=== PATIENT | male | born 1940 | race Caucasian/White ===

== ENCOUNTER 2016-03-02 07:56 | Inpatient (IN) | payer MEDICARE ==
[2016-03-02] VITALS (10 sets, daily range): BP systolic 109–146; BP diastolic 56–64; PULSE 72–88; RESP 15–20; O2SAT 91–98
[~2016-03-02] VITALS: Ht 182.9 cm; Wt 92.2 kg
[2016-03-02] MEDS ORDERED: Ondansetron 2 mg/mL 2 mL Inj IVPUSH ONE (08:15)
[2016-03-02] MEDS ORDERED: 0.9% Sodium Chloride 250 ML IV ONE (08:15)
--- NOTE | 2016-03-02 08:19 | ED.REPORT ---
HPI-Trauma Minor / Fall Date of Service Mar 02, 2016 ED Provider: Jose M Scott DO The patient is a 75 year old male with history of atrial fibrillation on Plavix , renal failure pre-dialysis, diabetes mellitus, thyroid disease, COPD, and congestive heart failure who was brought to the emergency department by EMS after he had a ground level fall. It is unclear why he fell. He fell backwards hitting his head. When medics arrived the patient was on oxygen and appeared pale. The patient states he is not normally on oxygen. He denies neck pain, back pain, chest pain, abdominal pain. He has noticed a mild cough and congestion. He is currently residing at [facility] for a left ankle wound. Nursing Notes Stated Complaint: GLF Chief Complaint: Head, Face, Neck Trauma Nursing Notes Reviewed: Yes Allergies: Coded Allergies: No Known Allergies (Unverified , 03/02/16) Scheduled Albuterol HFA (Proair HFA) 8.5 Gm Hfa.aer.ad 2 PUFFS INHALATION Q4H Aspirin Chew (Aspirin Chew) 81 Mg Chew 325 MG PO DAILY Atorvastatin (Lipitor) 20 Mg Tablet 20 MG PO DAILY Calcitonin,[place],Synthetic (Calcitonin-[place]) 3.7 Ml [place].pump 3.7 ML NS DAILY Carvedilol (Carvedilol) 6.25 Mg Tablet 6.25 MG PO BID Clopidogrel Bisulfate (Plavix) 75 Mg Tablet 75 MG PO DAILY Ferrous Sulfate (Iron) 325 Mg Capsule.er 325 MG PO DAILY Finasteride (Finasteride) 5 Mg Tablet 5 MG PO DAILY Gabapentin (Gabapentin) 300 Mg Capsule 600 MG PO DAILY Isosorbide MN ER (Isosorbide MN ER) 30 Mg Tab.er.24h 30 MG PO BID L.acidoph & Paracasei,B.lactis (Probiotic) 10 Billion Cell Capsule 1 EACH PO DAILY Levothyroxine (Levothyroxine) 125 Mcg Tablet 125 MCG PO DAILY Multivitamin (Multivitamins) 1 Each Capsule 1 EACH PO DAILY Nicotine 21 mg/24 hr Patch (Nicotine 21 mg/24 hr Patch) 1 Each Patch.dysq 1 PATCH TRANSDERM DAILY Polyethylene Glycol 3350 (Miralax) 17 Gm Powd.pack 17 GM PO DAILY Potassium Chloride ER (Potassium Chloride ER) 20 Meq Tablet.er 40 MEQ PO DAILY TAKE WITH FOOD Prednisolone (Prednisolone) 15 Mg/5 Ml Solution 40 MG PO DAILY Salmeterol Xinafoate (Serevent Diskus) 50 Mcg/Puff Inhaler 1,400 MCG IH BID Tamsulosin (Flomax) 0.4 Mg Capsule 0.4 MG PO DAILY Tiotropium [place] (Spiriva) 18 Mcg Cap.w.dev 18 MCG IH DAILY Torsemide (Torsemide) 20 Mg Tablet 60 MG PO Q2DAY Torsemide (Torsemide) 20 Mg Tablet 80 MG PO DAILY Scheduled PRN Hydrocodone-Acetaminophen 5-325 mg (Hydrocodone-Acetaminophen 5-325 mg) 1 Each Tablet 1 TABLET PO Q4H PRN PRN For Pain Miscellaneous Medications Guaifenesin/Pseudoephedrne HCl (Guaifenesin-Pse ER 600-60 mg) 600 Mg-60 Mg Tab.er.12h 1 EACH PO General Time Seen by MD: 08:05 Chief Complaint Fall, Head injury Hx Obtained From: Patient, EMS Arrived By: Ambulance Onset Occurred: 1 - 4 hours ago Symptom Duration: Since onset Caused by: Fall on ground Context: Occurred at: Home injury Location: Head Quality: Painful Severity: Current: Mild Severity: Maximum: Moderate Recent Healthcare: No recent hospitalization Similar Sx Previous: No Past Medical History Past Medical History History of atrial fibrillation on Plavix, renal failure pre-dialysis, diabetes mellitus, thyroid disease, COPD, and congestive heart failure Family History Noncontributory Smoking History Unknown if Ever Smoker Social History currently living at [facility] Other Social History: Local resident Review of Systems Review of Systems Note: +head pain around wound Ears / Nose / Throat: Reports: Nasal congestion Respiratory: Reports: Non-productive cough Musculoskeletal: Denies: Back pain, Neck pain Complete sys rev & neg: except as marked. Cardiovascular: Denies: Chest pain GI: Denies: Abdominal pain Physical Exam Initial Vital Signs Vital Signs (First) Date Time Temp Pulse Resp B/P Pulse Ox O2 Delivery O2 Flow Rate FiO2 03/02/16 08:13 36.5 79 15 146/64 94 Nasal Cannula 2 Initial VS: Reviewed Neurologic: Alert, Oriented, Nonfocal Psychiatric: Mood/affect normal, Behavior normal, Normal thought content General/Constitutional: Awake, Alert Neck: Atraumatic, Supple, Full range of motion, No swelling, Non-tender, No midline vertebral tend Head / Eyes: Normocephalic, PERRL, EOMI 5x5 cm midline occipital hematoma ENT: Airway patent Mouth: Positive: Mucous membranes dry Wheezing / Retractions: Positive: Wheezing expiratory Rales / Rhonchi: Positive: Rales bilateral bases Cardiovascular: Heart rate NL, Regular rhythm, Heart sounds NL, No murmurs, No rubs, Cap refill not delayed, Peripheral circulation NL Abdomen: Atraumatic, Soft, Non-tender Back: Non-tender, No midline vertebral tend, No paraspinal tenderness There is an area of erythema to the mid thoracic on the right Upper Extremity / MS: Neurologic intact, Vascular intact Superficial skin tear to his right forearm Lower Extremity / Pelvis / MS: Pelvis stable, Pelvis non-tender 2+ lower extremity edema ANKLE/FOOT: 2x3 cm ulceration to the dorsum of his left foot. Dusky looking toes on the right foot. Skin: Color NL Rash / Lesion Notes: Anasarca going up to his lower back Interpretation & Diagnostics Lab Results Interpretation Result Diagram: 03/02/16 0951 03/02/16 0951 Test 03/02/16 09:51 03/02/16 10:11 White Blood Count 6.7th/mm3 (3.8-10.1) Red Blood Count 3.28mil/mm3 (4.40-5.80) Hemoglobin 10.1g/dL (13.8-17.2) Hematocrit 33.0% (41.0-50.0) Mean Corpuscular Volume 100.6fL (81-100) Mean Corpuscular Hemoglobin 30.8pg (27.0-35.0) Mean Corpuscular Hemoglobin Concent 30.6% (32.0-37.0) Red Cell Distribution Width 22.1% (12.3-15.4) Platelet Count 100bil/L (150-400) Neutrophils (%) (Auto) 67.8% (40-74) Lymphocytes (%) (Auto) 13.5% (14-46) Monocytes (%) (Auto) 12.9% (4-12) Eosinophils (%) (Auto) 5.0% (0-5) Basophils (%) (Auto) 0.2% (0-3) Sodium Level 141mEq/L (134-144) Potassium Level 4.8mEq/L (3.5-5.2) Chloride Level 100mEq/L (97-108) Carbon Dioxide Level 28mmol/L (18-29) Blood Urea Nitrogen 63mg/dL (8-27) Creatinine 1.81mg/dL (0.76-1.27) Estimat Glomerular Filtration Rate 39mL/min (>59) Glucose Level 115mg/dL (60-99) Calcium Level 8.3mg/dL (8.5-10.1) Magnesium Level 2.3mg/dL (1.6-2.6) Total Bilirubin 1.0mg/dL (0.0-1.2) Aspartate Amino Transf (AST/SGOT) 26U/L (0-50) Alanine Aminotransferase (ALT/SGPT) 23U/L (0-44) Alkaline Phosphatase 118U/L (25-160) Total Creatine Kinase 57U/L (21-232) Creatine Kinase MB 5.3ng/mL (0.0-10.4) Creatine Kinase MB % % (0.0-5.0) Troponin T 0.142ug/L (0.0-0.011) Pro-B-Type Natriuretic Peptide 7466pg/mL (0-486) Total Protein 6.7g/dL (6.4-8.4) Albumin 2.8g/dL (3.4-5.0) Hold Arora Top Tube Received (Received) ECG Interpretation ECG Interpretation: Atrial fibrillation with a rate of 88 Time: 08:34 Interpreted by: ED physician X-Ray Chest Interpretation Chest Xray Interpretation: IMPRESSION: Abnormal appearing lungs suggesting pneumonia in the right side and overall chronic increased markings. No effusions are appreciated. Interstitial edema is thought to be unlikely. Dictated by: Chucho Purcell M.D. on 03/02/2016 at 9:35 Interpretation / Wet Read by: Interpret - Radiologist CT Head Interpretation IMPRESSION: Acute intracranial abnormality is not seen. Aging changes are seen. Old lacunar infarcts on the right are present. Subcutaneous soft tissue laceration in the occipital region. Dictated by: Chucho Purcell M.D. on 03/02/2016 at 9:34 Study: Head CT no contrast Interpretation / Wet Read by: Interpret - Radiologist Procedures Laceration Management Time: 10:12 Procedure Performed by: ED physician Consent / Setup / Site Prep: Consent from patient, Time-out performed, Hand hygiene observed Location of Wound: Stellate macerated laceration to his occipital scalp Wound Length: 3 cm Digital Block: No Wound Preparation: Normal saline Debridement: None Irrigation: Copious Foreign Body Explore / Removal: Explored for foreign body Undermining / Margins: Flaps aligned Repair Skin: Lizeth # Sutures - Skin: 8 (with hemostasis) Closure Layers: 1 Post-Procedure / Complications: Antibiotic oint applied, Dressing applied, No complications, Condition improved, Tolerated procedure well, Patient stable Re-Eval/Medical Decision Med Decision/Clinical Course Syncope with associated head injury, additionally hypoxia with pneumonia and probable CHF. Patient also has a nonhealing left foot ulcer. Troponin is elevated, CK and CK-MB are low. Discussion with hospitalist is felt that we would not give antiplatelet or anticoagulation until this is further sorted out. Patient is started on broad-spectrum antibiotics: Vancomycin and Zosyn Levaquin, due to living in a healthcare facility. Patient actually given Lasix due to diffuse pitting edema suspect anasarca and CHF exacerbation. Source of Hx: Old records, EMS Re-Evaluation/Progress #1: Time of Eval: 10:00 Re-Evaluation/Progress Note: Discussed imaging results and plan for laceration repair. Re-Evaluation/Progress #2: Time of Eval: 11:02 Re-Evaluation/Progress Note: Rechecked the patient. Discussed plan for admission. All questions were addressed. Consultation : Referral / Consult Name: Ranjit Calderon MD Consulted With: Hospitalist Requested Call at: 11:05 Call Returned at: 11:57 Jackhammer Operator: Will see patient, Agrees with eval, Agrees with plan, Accepts admit Counseled Regarding: Diagnosis, Lab results, Need for admission Discharge & Departure Impression: Primary Impression: Fall Encounter type: initial encounter Qualified Code: W19.XXXA - Unspecified fall, initial encounter Additional Impressions: Scalp laceration Encounter type: initial encounter Qualified Code: S01.01XA - Laceration without foreign body of scalp, initial encounter Pneumonia Pneumonia type: due to unspecified organism Laterality: right Lung location : unspecified part of lung Qualified Code: J18.9 - Pneumonia, unspecified organism Anasarca Disposition: ADMITTED TO HOSPITAL Discharge Condition All VS Reviewed: Yes Condition: Stable Scribe Attestation Portions of this note were transcribed by Isa Vieira. I, Dr. Scott personally performed the history, physical exam and medical decision-making; I reviewed and confirmed the accuracy of the information in the transcribed note. Signed by: Anita Ba, 03/02/2016 and Juan. Jose M Scott DO Mar 02, 2016 08:19 Isa Vieira Mar 02, 2016 08:27
[2016-03-02] MEDS ORDERED: Vancomycin Dose per Pharmacist XX ONE (08:30)
--- NOTE | 2016-03-02 09:36 | DRSVH ---
PROCEDURE: CT BRAIN WITHOUT CONTRAST ([id number]) INDICATIONS: head injury occipital hematoma TECHNIQUE: Noncontrast 4.5 mm thick angled axial sections acquired from the foramen magnum to the vertex, with c oronal reformats. COMPARISON: None. FINDINGS: Image quality: Excellent. CSF spaces: Basal cisterns are patent. No extra-axial fluid collections. The ventricles are symmet vamshi in size and shape. Brain: No intracranial bleeds or masses. There is cerebral volume loss for age, with resultant vent ricular and sulcal prominence. There are old lacunar infarcts in the right superior basal ganglia and the head of the caudate on the right. There are periventricular and deep white matter chronic small vessel ischemic changes. There is intracranial internal carotid artery atherosclerosis. Skull and face: Calvarium and visualized facial bones appear intact, without suspicious lesions. Th ere is a posterior occipital scalp laceration with overlying bandage. Sinuses: Visualized sinuses and mastoids are clear. IMPRESSION: Acute intracranial abnormality is not seen. Aging changes are seen. Old lacunar infarcts on the right are present. Subcutaneous soft tissue laceration in the occipital region. Dictated by: Chucho Purcell M.D. on 03/02/2016 at 9:34 Approved by: Chucho Purcell M.D. on 03/02/2016 at 9:34
--- NOTE | 2016-03-02 09:37 | DRSVH ---
PROCEDURE: X-RAY CHEST ONE VIEW, PORTABLE ([id number]) INDICATIONS: hypoxia TECHNIQUE: One view of the chest was acquired. COMPARISON: None. FINDINGS: Surgical changes and devices: property assessment monitor leads are present over the chest. Sternotomy wires are present. Lungs and pleura: There are increased markings diffusely present probably chronic. In addition abnorm al prominent markings in the right lung suggesting superimposed right-sided pneumonia. Mediastinum: Mediastinal contours appear normal. Heart size is normal. Bones and chest wall: No suspicious bony lesions. Overlying soft tissues appear unremarkable. IMPRESSION: Abnormal appearing lungs suggesting pneumonia in the right side and overall chronic incre ased markings. No effusions are appreciated. Interstitial edema is thought to be unlikely. Dictated by: Chucho Purcell M.D. on 03/02/2016 at 9:35 Approved by: Chucho Purcell M.D. on 03/02/2016 at 9:35
[2016-03-02 10:16] LABS: BASOPHILS % (AUTO) 0.2 % (0-3); MONOCYTES % (AUTO) 12.9 % (4-12); Mean Corpuscular Hemoglobin 30.8 pg (27.0-35.0); Mean Corpuscular Volume 100.6 fL (81-100); NEUTROPHILS % (AUTO) 67.8 % (40-74); Platelet Count 100 bil/L (150-400)
[2016-03-02] MEDS ORDERED: CALC3.8S NS (10:25)
[2016-03-02] MEDS ORDERED: SALM50DI IH (10:25)
[2016-03-02] MEDS ORDERED: NICO1PAT16 TRANSDERM (10:25)
[2016-03-02] MEDS ORDERED: ISOS30TA4 PO (10:25)
[2016-03-02] MEDS ORDERED: GABA-502 PO (10:25)
[2016-03-02] MEDS ORDERED: POTA-62 PO (10:25)
[2016-03-02] MEDS ORDERED: TAMS0.4C98 PO (10:25)
[2016-03-02] MEDS ORDERED: L.AC1CAP6 PO (10:25)
[2016-03-02] MEDS ORDERED: PRED15SO PO (10:25)
[2016-03-02] MEDS ORDERED: FINA5TAB9 PO (10:25)
[2016-03-02] MEDS ORDERED: FERR325C PO (10:25)
[2016-03-02] MEDS ORDERED: CARV6.252 PO (10:25)
[2016-03-02] MEDS ORDERED: LEVO125T6 PO (10:25)
[2016-03-02] MEDS ORDERED: MULT1CAP33 PO (10:25)
[2016-03-02] MEDS ORDERED: [UNRECOGNIZED DRUG - CODE] PO (10:25)
[2016-03-02] MEDS ORDERED: CLOP75TA3 PO (10:25)
[2016-03-02] MEDS ORDERED: HYDR-4003 PO (10:25)
[2016-03-02] MEDS ORDERED: ATOR20TA PO (10:25)
[2016-03-02] MEDS ORDERED: ALBU8.5H2 INHALATION (10:25)
[2016-03-02] MEDS ORDERED: TIOT18CA3 IH (10:25)
[2016-03-02] MEDS ORDERED: ASPI81TA3 PO (10:25)
[2016-03-02] MEDS ORDERED: POLY17PO6 PO (10:25)
[2016-03-02] MEDS ORDERED: TORS20TA3 PO (10:25)
[2016-03-02] MEDS ORDERED: levoFLOXacin Inj 750 MG in IV Premix 1 EACH IV ONE (10:50)
[2016-03-02] MEDS ORDERED: Piperacillin-Tazo 3.375 Gm Inj 3.375 GM in Dextrose 5% Minibag Plus 50 ML IV ONE (10:50)
[2016-03-02 10:58] LABS: Creatine Kinase 57 U/L (21-232); Magnesium 2.3 mg/dL (1.6-2.6)
[2016-03-02 11:03] LABS: TROPONIN T 0.142 ug/L (0.0-0.011)
[2016-03-02] MEDS ORDERED: Furosemide 10 mg/mL 10 mL Inj IVPUSH ONE (11:10)
[2016-03-02] MEDS ORDERED: Alum-Mag Hydrox-Simeth 30 mL Suspension PO PRN (12:25)
[2016-03-02] MEDS ORDERED: Ondansetron 2 mg/mL 2 mL Inj IVPUSH PRN (12:25)
[2016-03-02] MEDS ORDERED: _HYDROcodone/APAP 5-325 mg Tablet PO PRN (13:40)
[2016-03-02] MEDS ORDERED: Albuterol 2.5 mg/3 mL Inhalation Solution NEB PRN (13:55)
[2016-03-02] MEDS ORDERED: ASPI325T32 PO (14:35)
[2016-03-02] MEDS ORDERED: ACET325T51 PO (14:35)
[2016-03-02] MEDS ORDERED: GUAI600T86 PO (14:35)
[2016-03-02] MEDS ORDERED: MULT-1018 PO (14:37)
--- NOTE | 2016-03-02 15:54 | NUR ---
ADMIT Admitted a 75/M into room 3010 following report from Dinorah Jacobsen APPLICATIONS INSTRUCTOR at 1345 this afternoon. Pt unable to ind transfer from stretcher to bed, 3 person max assist to transfer. Pt A&O, states that he has chronic lower back pain and "my legs are very tender." Head wound wrapped with gauze, bleeding continues. BLE are reddened with +3 edema. Noted R toes are discolored, L foot dorsal surface has an ulcer with adaptic over. Pt states his LE's "have been like that for year" and "they need to be kept on pillows all the time." Pt has mult skin issues - see skin assessment in patient care flow sheet. Pt on 2L via NC. He is on a P500 bed. Vero Kendall at bedside and communicated to this RN that [place] pre[place] as family all lives in [facility]. This information was given to SW. Resp panel pending. Pt has a fistula on L arm, BP's on RUE only. Admit RN completed med rec. Pt introduced to staff and call light and bed controls. Currently pt resting, bed in lowest, locked position and call light in reach.
[2016-03-02] MEDS: Albuterol-Ipratropium 3 mL Inhalation Solution NEB SCH ×2 (16:13→20:02)
[2016-03-02] MEDS ORDERED: Furosemide 10 mg/mL 2 mL Inj IVPUSH ONE (17:00)
[2016-03-02] MEDS ORDERED: levoFLOXacin Dose Per Pharmacist XX ONE (17:15)
--- NOTE | 2016-03-02 17:20 | PCM.HPMED ---
Subjective Date of Service Mar 02, 2016 Primary Provider: Admitting Physician: Ranjit Calderon MD Primary Care Physician: Gabriel Chandra DO Attending Physician: Ranjit Calderon MD Admit Status: From the Emergency Department, Admit to Blue Team Chief Complaint: Head laceration secondary to GLF in SNF History of Present Illness: Mr. Guillermo Ramey is a pleasant 75 year old gentleman with reported history of COPD, combined systolic and diastolic congestive heart failure, atrial fibrillation, HTN, CKDIV, and recent infection resulting in pneumonia, that presented to [facility] via EMS from [facility] after he experienced a syncopal event that resulted in a head laceration. He was admitted for evaluation and treatment of GLF, in addition to acute respiratory failure likely secondary to suspected acute exacerbation of COPD, acute exacerbation CHF , and possible ongoing PNA. Mr. Ramey is a current resident of [facility], and states that he cannot recall any inciting factors for his fall, and does not recall the events leading to it. He recalls reaching out, and waking up what he believed to be just a few moments later. He fell backward, striking the posterior aspect of his head onto the floor. Daughter is present at bedside. He states that he was recently admitted at [facility] in [place] for infection, and that is how he ended up at [facility], for rehabilitation. He believes it was from his foot wound, as this is the first he has heard of pneumonia. He was last seen 02/[address] Chandra at [facility]. He states other than the fall, he has been feeling well. Admits to poor outpatient compliance with follow up. Admits to chills, shortness of breath, increased cough with intermittent production Denies nausea, vomiting, fevers, severe PAN, acute vision changes In the ED, T36.5, P79, BP 146/64, 94% NC2L; WBC 6.7, Hb 10.1, Hct 33.0; Troponin 0.142, Cr 1.81; Given Lasix 60mg IV x1, vancomycin, zosyn, levaquin. 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 Patient was transferred to [facility] in stable condition. Review of Systems: Complete ROS obtained; pertinent positives and negatives as noted in HPI Allergies Coded Allergies: No Known Allergies (Unverified , 03/02/16) [facility]16 Guillermo Ramey [id number] 1940 02/12/2016 11:00 AM 02/28 Start Date Medication Directions aspirin 325 mg tablet take 1 tablet by oral route every day atorvastatin 20 mg tablet take 1 tablet by oral route every day calcitonin (salmon) 200 unit/actuation nasal spray use as directed clopidogrel 75 mg tablet take 1 tablet by oral route every day ferrous sulfate 325 mg (65 mg iron) tablet take 1 tablet by oral route every day finasteride 5 mg tablet take 1 tablet by oral route every day gabapentin 300 mg capsule take 2 capsule by oral route every bedtime isosorbide mononitrate ER 30 mg tablet,extended release 24 hr take 1 tablet by oral route 2 times every day in the morning levothyroxine 125 mcg tablet take 1 tablet by oral route every day nicotine 21 mg/24 hr daily transdermal patch apply 1 patch by transdermal route every day and remove at bedtime [place] 5 mg-325 mg tablet take 1 tablet by oral route every 4 hours as needed polyethylene glycol 3350 17 gram oral powder packet take 1 packet by oral route every day mixed with 8 oz. water, juice, soda, coffee or tea potassium chloride ER 20 mEq tablet,extended release take 2 tablet by oral route every day with food prednisolone 15 mg/5 mL oral solution take 40 mg daily Serevent Diskus 50 mcg/dose powder for inhalation inhale 1 puff by inhalation route 2 times every day in the morning and evening approximately 12 hours apart Spiriva with HandiHaler 18 mcg and inhalation capsules inhale 1 capsule by inhalation route every day using 2 inhalations via handihaler tamsulosin 0.4 mg capsule take 1 capsule by oral route every day 1/2 hour following the same meal each day torsemide 20 mg tablet take 60 mg qOD alternating with 80 mg qOD PMH CHF, systolic and diastolic Ischemic cardiomyopathy COPD Atrial fibrillation CKDIII Pre-diabetes mellitus Hypothyroidism Bladder cancer s/p TURP Basal cell CA Chronic back pain Chronic cor pulmonale Depression GERD CVA Hyperlipidemia Shingles PVD Surgical History BCG instillations Left AV fistula CABG x2 vessel Cardioversion for AF Hemilaminotomy L5-S1 Left common femoral endarterectomy Microdiscectomy L5-S1 Balloon angioplasty, + stent x2 Left external iliac stent R pulmonary nodule thoracotomy Family History Brother: CAD Father: CAD s/p ND Mother: DM2, breast CA Social History Occupation: Unemployed Hx Alcohol Use: Yes (Last drink > 1 year) Hx Substance Use: No Hx Tobacco Use: Yes ('entire life') Smoking Status: Current Every Day Smoker, Light Tobacco Smoker Living Arrangement: Fdc Facility ([facility]) Exam Vital Signs Vital Sign - Last Date Time Temp Pulse Resp B/P Pulse Ox O2 Delivery O2 Flow Rate FiO2 03/02/16 12:07 84 18 114/61 94 Nasal Cannula 2 03/02/16 08:13 36.5 Exam General: AAOx3; pleasant, cooperative. No acute distress HENT: Approx 6cm laceration noted over parieto-occiput with tawana and signs of bleeding; sclera anicteric, mucus membranes moist Neck: Soft, trachea midline Cardiac: Irregularly regular rate; no murmurs appreciated Respiratory: Bilateral coarse sounds R > L, extending from bases to midfield; + wheeze bilateral mid-upper don Abdomen: Soft, nontender, nondistended Extremities: Left UE fistula placed; BLLE moderate pitting edema extending from dorsum to thigh/abdomen; BLLE erythematous with multiple ulcerations; largest ulceration noted over left dorsum approx 3cm in diameter, without active bleeding or discharge, appears nonhealing; BLLE digits appear poorly perfused Pulses: Unable to palpate BLLE dorsal pedis and post tibialis secondary to edema Neuro: CNII-XII grossly intact; speech normal; facial expressions symmetric Psych: Appropriate mood, affect, and responses to questioning; good insight and judgment; patient is aware his condition is dire Lab and Diagnostics Result Diagram: 03/02/1695003/02/16950 Assessment & Plan Mr. Guillermo Ramey is a pleasant 75 year old gentleman with reported history of COPD, congestive heart failure, atrial fibrillation, and recent infection resulting in pneumonia, that presented to [facility] via EMS from [facility] after he experienced a syncopal event that resulted in a head laceration. - Hospital day one Acute respiratory failure, present on admission. Ongoing - In ED: Requiring supplemental O2 - Possible etiologies: Acute exacerbation COPD, undiagnosed chronic respiratory failure, acute exacerbation CHF, ongoing PNA, other infxn - 88-92% O2 - Consider arrange home O2 order at [place] if sats remain low Pneumonia, suspected, acute, present on admission. Under investigation - CXR 03/02: Abnormal appearing lungs suggesting pneumonia in the right side and overall chronic increased markings. No effusions are appreciated. Interstitial edema is thought to be unlikely - Records request: [facility] - Resp PCR - Blood cultures - PCT - Legionella Ur - S. pneu Ur - MRSA screen - Abx: Zosyn, Levaquin, vancomycin; DC pending repeat PCT values Acute exacerbation COPD, present on admission. Ongoing - Duonebs QIDWA - Accunebs q2h prn - Budesonide BID - On chronic steroids: Med rec 40mg prednisone daily - Solu-Medrol 60mg IV q8 x3 doses, then taper with po: start date 03/02 - May need arrange home O2 order pending improvement Acute exacerbation CHF, present on admission. Ongoing - No known cardiac history - Home diuretics: Torsemide 80mg every other day alternating with 60mg - Echo - Lasix 20mg IV q6h + metolazone 5mg daily x3 days - Re-eval fluid status daily; convert to po when stabilized Head laceration secondary to GLF, acute, present on admission. Ongoing - Brain CT 03/02: Acute intracranial abnormality is not seen. Aging changes are seen. Old lacunar infarcts on the right are present. Subcutaneous soft tissue laceration in the occipital region. - Stapled in ED - HOLDING anticoagulants/antiplatelets at this time; wound continuing to bleed - Wound care eval Ground level fall, acute, unknown chronicity. Under investigation - Etiologies considered: Dehydration, atrial fibrillation, thyroid abnormalities , gait instability, medications, deconditioning, TIA - TSH, fT4; echo - PT eval Left foot ulceration, chronicity unknown, present on admission. Ongoing - Podiatry consultation; appreciate time and concerns - Wound care consult Anasarca, chronicity unknown, present on admission. Ongoing - Likely secondary to worsening CHF - Echo, lasix as above Elevated troponin undetermined significance, chronicity unknown - On admit: 0.142 - May be secondary to CKD - Trend Possible acute kidney injury on CKDIII, present on admission. Under investigation - On admit: Cr 1.81, eGFR 39 - Records request to determine baseline Cr - Patient reports he has left sided fistula already placed in preparation for dialysis, if needed - Fistula has never been utilized - Consider renal consultation if Cr worsens in am Bladder cancer, chronic. Presumed stable - Reports he receives BCG instillations Hypothyroidism, chronic. Presumed stable - TSH, fT4 as above - Continued levothyroxine at reported dose Family concerns for discharge - NEUROSURGICAL PHYSICIAN ASSISTANT consult - Family states that he has been unable to be placed in SNFs [place] due to son's life choices - Dtr present- would like pt to be transferred out to [facility] to SNF closer to [place] - Dtr expressed discomfort in pt returning to [facility] - PRN: Fever/antiemetic/bowel/pain - DIET: Heart healthy/CC - DVT: Contraindicated at this time secondary to head lac bleeding, BLLE edema - GI: None - CODE: DNR/DNI Patient Status: Due to severity of presenting symptoms, risk of adverse events, and likely course of care, anticipated LOS > 2 midnights; patient INPT status. Anticipated needs at this time include working with NEUROSURGICAL PHYSICIAN ASSISTANT and family for placement concerns, PT eval to assess stability, wound care to eval feet. Pain Evaluation: Adequate Pain Control VTE Prophylaxis Indicated: Contraindicated Resuscitation Status: DNR/DNI:Do Not Resuscitate/Intubate Attending Statement The patient was seen and examined together with Dr. Loving on 03/03/2016 and I agree with the history, exam and plan as outlined in the note above. Susan Loving DO Mar 02, 2016 13:24 Ranjit Calderon MD Mar 03, 2016 09:14
[2016-03-02] MEDS: MethylprednisoLONE Sodium Succinate 40 mg/mL Inj IVPUSH SCH (17:38)
[2016-03-02 18:52] LABS: APPEARANCE,URINE CLEAR (CLEAR,HAZY); COLOR,URINE YELLOW (YELLOW); PH,URINE 5.5 (5.0-8.0)
[2016-03-02 18:53] LABS: OCCULT BLOOD,URINE NEGATIVE (NEGATIVE); UROBILINOGEN,URINE NORMAL (NORMAL)
[2016-03-02] MEDS: Isosorbide Mononitrate 30 mg ER24 Tablet PO SCH (19:55)
[2016-03-02] MEDS: Budesonide 0.5 mg/2 mL Inhalation Solution NEB SCH (20:03)
[2016-03-02] MEDS: Furosemide 10 mg/mL 2 mL Inj IVPUSH SCH (20:30)
[2016-03-03] VITALS (11 sets, daily range): BP systolic 110–136; BP diastolic 62–70; PULSE 75–93; RESP 18–20; O2SAT 92–96
[2016-03-03] MEDS: MethylprednisoLONE Sodium Succinate 40 mg/mL Inj IVPUSH SCH ×2 (01:16→08:47)
[2016-03-03] MEDS: Piperacillin-Tazo 3.375 Gm Inj 3.375 GM in Dextrose 5% Minibag Plus 50 ML IV SCH ×3 (01:25→15:43)
[2016-03-03] MEDS ORDERED: 0.9% Sodium Chloride 250 ML ONE (01:27)
[2016-03-03] MEDS: Furosemide 10 mg/mL 2 mL Inj IVPUSH SCH ×3 (02:35→15:43)
--- NOTE | 2016-03-03 03:09 | NUR ---
Respiratory / cardiac Exertional SOB with moist non-productive cough. Remains on 2-3Lt's 02 overnight. RT in for NEBs. Zosyn infusing. Elevated traponins Dr. Monreal made aware. Tele: roznic A-fib HR 86. Denies chest pain.
[2016-03-03 06:25] LABS: BASOPHILS % (AUTO) 0 % (0-3); EOSINOPHILS % (AUTO) 0 % (0-5); MONOCYTES % (AUTO) 3.9 % (4-12); Mean Corpuscular Hemoglobin 30.7 pg (27.0-35.0); Mean Corpuscular Volume 99.7 fL (81-100); NEUTROPHILS % (AUTO) 86.7 % (40-74); Platelet Count 96 bil/L (150-400)
--- NOTE | 2016-03-03 06:45 | NUR ---
urinary retention bladder scan with 999ml - unable to void. Dr Monreal notified and order received to I/O cath Q8Hr prn for postvoid residual greater than 300ml. 0650 UOP per cath 1000ml.
[2016-03-03 07:11] LABS: Magnesium 2.3 mg/dL (1.6-2.6); Phosphorus 4.6 mg/dL (2.5-4.9)
[2016-03-03] MEDS: Albuterol-Ipratropium 3 mL Inhalation Solution NEB SCH ×4 (07:29→21:11)
[2016-03-03] MEDS: Budesonide 0.5 mg/2 mL Inhalation Solution NEB SCH ×2 (07:42→21:11)
[2016-03-03] MEDS ORDERED: Calcitonin 200 IU 3.7 mL Nasal Spray NASAL SCH (08:30)
[2016-03-03] MEDS: Polyethylene Glycol (PEG) 17 Gm Powder PO SCH (08:30)
[2016-03-03] MEDS: Isosorbide Mononitrate 30 mg ER24 Tablet PO SCH ×2 (08:48→20:42)
--- NOTE | 2016-03-03 10:09 | PCM.PNMED ---
Subjective Date of Service Mar 03, 2016 Subjective Guillermo continues to be coughing this morning and has had bloody sputum. He denies any pain or dizziness. Exam Vital Signs Vital Sign - Last Date Time Temp Pulse Resp B/P Pulse Ox O2 Delivery O2 Flow Rate FiO2 03/03/16 07:30 93 18 95 Nasal Cannula 3.00 03/03/16 06:10 36.8 110/66 Intake and Output 03/02/16 03/02/16 03/03/16 Cumulative From/Thru 15:00 23:00 07:00 03/02/16 08:13 - 03/03/16 06:00 Intake Total 250 ml 379 ml 75 ml 704 ml Output Total 775 ml 775 ml Balance 250 ml -396 ml 75 ml -71 ml Intake Oral 200 ml 200 ml IV Total 250 ml 179 ml 75 ml 504 ml Output Urine Total 775 ml 775 ml Exam General: Chronically ill appearing male resting in bed, kyphotic. Supplemental oxygen via nasal cannula at 3L/h. Oriented to person and place, but states that Marv is president and the year is 2019. HEENT: Large mesh dressing in place over the occiput to the frontal region. PERRLA Cardiac: Irregularly irregular without murmur, rub, or gallop Respiratory: Good inspiratory effort. Diffuse wheezing and rales. No gasping or tripoding. Bloody sputum visualized. Extremities: 1+ edema distal to the knee. The right 4th distal toe is black, right plantar halux is black. Feet are cold. There is erythema and scaling present on both lower legs consistent with chronic stasis. Left dorsal dressing is clean, dry, and intact. Lab and Diagnostics Result Diagram: 03/03/16 0603/03/16 06 Assessment & Plan Guillermo is a 75yo male with reported history of COPD, congestive heart failure, atrial fibrillation, and recent hospitalization at [facility] for unknown reason, who presented to [facility] via EMS from [facility] after he experienced a GLF with resultant posterior scalp laceration. Hospital day # 2 Acute respiratory failure, present on admission. Ongoing - Potentially acute on chronic given his hx of COPD. - Suspect this is due to pneumonia, possibly contributed by CHF - Requiring supplemental oxygen - Supplemental oxygen as needed to maintain 88-92% O2 saturation - Consider arrange home O2 Pneumonia, unclear if this is hospital acquired as records from [facility] have not yet been received. Will treat for possible resistance - CXR 03/02: Abnormal appearing lungs suggesting pneumonia in the right side and overall chronic increased markings. No effusions are appreciated. Interstitial edema is thought to be unlikely - Records requested from his recent hospitalization at [facility] - Resp PCR negative - Blood cultures pending - Legionella Ur not yet resulted - S. pneu Ur - Abx: Zosyn, Levaquin, vancomycin Acute exacerbation COPD, present on admission. Ongoing - In the setting of chronic steroid use - Duonebs QIDWA - Accunebs q2h prn - Budesonide BID - Continue prednisone 40mg daily - Tapering Solu-Medrol, received 60mg IV q8h x3 doses - May need arrange home O2 order pending improvement Acute exacerbation CHF, systolic and diastolic dysfunction history, present on admission. Ongoing - Continues to have pedal edema - Home diuretics: Torsemide 80mg every other day alternating with 60mg daily on alternate days - Echocardiogram today - Lasix 20mg IV q6h + metolazone 5mg daily x3 days - Re-eval fluid status daily; convert to po when stabilized Head laceration secondary to GLF, acute, present on admission. Ongoing - Brain CT 03/02: Acute intracranial abnormality is not seen. Aging changes are seen. Old lacunar infarcts on the right are present. Subcutaneous soft tissue laceration in the occipital region. - Stapled in Emergency department - HOLDING anticoagulants/antiplatelets at this time due to bleeding of his scalp laceration overnight - Wound care evaluation Ground level fall, acute, unclear if this is a recurrent issue for him or if this was an unwitnessed syncopal episode - Etiology not entirely clear, this patient has several comorbidities that may be the cause, possible pulmonary embolism given the hemoptysis and acute respiratory failure - PT evaluation Chronic left foot ulceration with myonecrosis, present on admission. Ongoing - Podiatry consultation; appreciate time and concerns - Wound care consult Elevated troponin undetermined significance, chronicity unknown - On admit: 0.142 - May be secondary to CKD - Trend Possible acute kidney injury on CKDIII, present on admission. Under investigation - On admit: Cr 1.81, eGFR 39 - Records request to determine baseline Cr - Patient reports he has left sided fistula already placed in preparation for dialysis, if needed - Fistula has never been utilized - Consider renal consultation if Cr worsens in am Bladder cancer, chronic. Presumed stable - Reports he receives BCG instillations Hypothyroidism, chronic. Presumed stable - TSH, fT4 as above - Continued levothyroxine at reported dose Family concerns for discharge - LUBE WORKER consult as the patient's daughter does not want him to return to [facility], wants him closer to [place] - PRN: Fever/antiemetic/bowel/pain - DIET: Heart healthy/CC - GI: None - CODE: DNR/DNI VTE Prophylaxis: Other (Held due to bleeding scalp wound) Resuscitation Status: DNR/DNI:Do Not Resuscitate/Intubate Attending Statement The patient was seen and examined together with Dr. Mathias on 03/03/2016 and I agree with the history, exam and plan as outlined in the note above. Adriane Mathias DO Mar 03, 2016 09:52 Ranjit Calderon MD Mar 04, 2016 09:58
[2016-03-03] MEDS: Vancomycin Dose per Pharmacist XX SCH (11:30)
[2016-03-03] MEDS: Vancomycin 1 Gm/200 mL D5W Premix IV SCH (12:01)
--- NOTE | 2016-03-03 12:34 | PCM.CONPHA ---
Subjective Head laceration secondary to GLF in SNF Reason for Pharmacy Consult: Vancomycin Dosing Assessment/Plan Assessment/Plan Pharmacy Kinetic Dosing Vancomycin Indication: Pneumonia Vanc goal trough: 15-20 mcg/mL Pt wt: 87.1 kg Other ABX: Zosyn Cultures: Blood = NGTD x 24 hrs SCr: 1.84 mg/dL (stable) Assessment/Plan: - Loading dose of vancomycin 1,250 mg given in ED. Random level this AM = 10.1 -Will continue vancomycin 1,000 mg Q24h with trough scheduled for 03/05 @1030 ( if therapy is continued). Pharmacy appreciates consult and will continue to monitor. Thanks, Osmel Kim, PharmD Osmel Kim Mar 03, 2016 12:34
--- NOTE | 2016-03-03 14:47 | NUR ---
Social Work-initial assessment: Data:See initial assessment. pt is a 75 y/o male who was admitted on 03/02/16 for GLF per H&P. Pt's insurance is [employer] and PCP is Gabriel Chandra DO. EMR Reviewed. Pt's readmission score is 4-high risk. VILMA met with pt and daughter Faiza [phone] to discuss discharge planning, SW role explained. Pt has been residing at [facility] for rehab. Pt uses a fww at baseline and does not drive. Pt has HH history with [facility]. SW discussed DPOA/advanced directive with daughter, who confirms they have completed this and brought the paperwork in. Daughter states that she is currently caring for pt's who has some dementia herself. Daughter states that the 's home has been foreclosed and she has 60 days to move out which daughter is assisting with. Daughter would like pt to be closer to home so she can manage both pt and . Daughter would like pt to go to [facility], if not this facility, then any other facility in [facility]. SW explained that pt's insurance would have to contract with these facilities and they would have to be willing to accept pt. Daughter states pt has applied for [facility] also. SW placed a call to [facility] and left message. SW requested UR specialist to send referrals to other [facility] SNFs. PT evaluation is pending. SW will continue to follow. Assessment:Pt who would benefit from SNF. Plan:Return to [facility] vs [facility] SNF. PT evaluation is pending. VILMA will continue to follow. SANCHEZ Casillas Addendum: 03/03/16 at 1511 by LINDA TIERNEY Amended: Links added.
--- NOTE | 2016-03-03 15:35 | NUR ---
03/03/16 Wound Care [facility] Patient seen for wound evaluation to left foot and posterior head. Patient noted with ischemic ulcer to dorsum of left foot. Patient states has been present for at least 2 years with little overall progress made. Has seen wound clinic in [place], as well as wound care at various hospitals, home care and chcf facilities. Assessment reveals patient also with ischemic areas to right 4th plantar toe, right distal great toe and right dorsum of foot. Patient has almost healed arterial ulcer to left lateral ankle. Right 4th plantar toe wound measures 1.7cmW x 1.4cmL with multiple black ischemic areas but no open area. Right great distal toe measures 0.3cmW x 1.5cmL with no open area and 100% black, split skin. Right dorsum of foot measures 0.5cmW x 0.5cmL with intact black scab. Left lateral dorsum foot measures 2.5cmW x 4.5cmL x 0.3cmD with 75% eschar and 25% slough. Periwound purple and appears ischemic. Wound bed very dry with minimal dark bloody drainage noted. Left lateral ankle open area measures 0.2cmW x 0.2cmL x 0.1cmD 100% dusky red with no drainage noted. All wounds cleaned with saline. Applied xeroform and mepilex border 4x4 to left dorsum foot. Left lateral foot left open to air. Scalp laceration cleaned with saline and patted dry. Lizeth intact. Covered with 4x4s and kerlix. No drainage noted on removed dressing. Patient denies pain throughout wound care. Bilateral heels floated following treatment, patient requests 2 pillows. Instructed not to pull covers down tightly over toes. Blankets lightly placed over feet and draped over footboard. Patient on P500 bed and repositions self frequently with independence. Nursing to change dressing q24 to 48 hours and PRN soiled. Wound care to follow up as needed.
--- NOTE | 2016-03-03 15:59 | NUR ---
Called [facility] in [place] and they do have a contract with [facility] and they do have a male bed open. Faxed referral to [phone]. Also talked to Usman in admissions at [facility] and they also have a [facility] contract and some available male beds. Faxed referral to [phone] Updated CREW LEADER/CONTROL ROOM OPERATOR
--- NOTE | 2016-03-03 16:00 | DRSVH ---
[facility] [address] [place] [address] Echocardiogram Report Name: SHANAE TYLER DStudy Date: 03/03/2016 Height: 72 in Hospital Exam Location: [facility] Weight: 192 lb Gender: Male BSA: 2.1 m2 : 1940 Age: 75 yrs BP: 110/66 mmHg Reason For Study: SHORTNESS OF BREATH, EDEMA Ordering Physician: HOSPITALIST [facility] Performed By: Eron Ch Referring Physician: Dr. Marivel Chandra Interpretation Summary The left ventricle is normal in size. Left ventricular ejection fraction is estimated to be 50 +/- 5%. Flattened septum is consistent with RV volume overload. The right ventricle is moderate to severely dilated. Right ventricular systolic function is mild to moderately reduced. There is mild mitral regurgitation. The tricuspid annulus is dilated. The tricuspid valve does not coapt well. There is severe tricuspid regurgitation. The right ventricular systolic pressure is estimated at 43 mmHg assuming a right atrial pressure of 15 mm Hg. The ascending aorta is mildly enlarged. There is a moderate left-sided pleural effusion. Incidental finding of abdominal ascites is noted. Notified the findings to the hospitalist team. Procedure: A two-dimensional transthoracic echocardiogram with color flow and Doppler was performed. The study quality was technically good. There is no prior echocardiogram noted for this patient. The patient was in atrial fibrillation with controlled ventricular rate during the exam. The patient had a heart rate of 70-90 beats per minute. Left Ventricle: The left ventricle is normal in size. There is normal left ventricular wall thickness. Trabeculae near apex are visualized. No thrombus is observed. Left ventricular ejection fraction is estimated to be 50 +/- 5%. Flattened septum is consistent with RV volume overload. Diastolic function could not be accurately assessed due to atrial fibrillation. Right Ventricle: The right ventricle is moderate to severely dilated. A moderator band is seen in the right ventricle. Right ventricular systolic function is mild to moderately reduced. Atria: The left atrium is severely dilated. The right atrium is severely dilated. The interatrial septum is intact with no evidence for an atrial septal defect. Mitral Valve: There is mild mitral annular calcification. The mitral valve leaflets are slightly calcified. No significant mitral valve stenosis. There is mild mitral regurgitation. Aortic Valve: The aortic valve is trileaflet. The aortic valve opens well. The aortic valve is slightly calcified. There is discrete nodular thickening of the right coronary cusp. There is no aortic valve stenosis. There is trace aortic regurgitation. Tricuspid Valve: The tricuspid valve does not coapt well. The tricuspid annulus is dilated. Tricuspid leaflets are thickened. There is severe tricuspid regurgitation. The right ventricular systolic pressure is estimated at 43 mmHg assuming a right atrial pressure of 15 mm Hg. Pulmonic Valve: The pulmonic valve is normal in structure and function. There is trace pulmonic regurgitation. Great Vessels: The aortic root is normal size. The ascending aorta is mildly enlarged. The pulmonary artery is normal size. The IVC is dilated (diameter is greater than 2.1 cm) and it collapses less than 50% with a sniff. This suggests a high right atrial pressure of 15 mm Hg. Pericardium/ Pleura There is no pericardial effusion. There is a moderate left-sided pleural effusion. Incidental finding of abdominal ascites is noted. MMode/2D Measurements & Calculations LVIDd: 4.7 cm LA dimension: 5.4 cm RA long axis: 9.0 cm Ao root diam LVIDs: 3.3 cm FS: 30.9 % LA A2 area: 37.1 cm RA area: 60.4 cm Aortic Jxn EPSS: 0.57 cm LA A4 area: 42.1 cm RA vol: 343.3 ml IVSd: 1.0 cm LA length (vol): 8.3 cm RA : 164.0 ml/m2 asc Aorta Diam LVPWd: 1.2 cm LA vol: 158.8 ml LA vol index: 75.9 ml/m IVC diam: 4.0 cm EDV(MOD-sp2) LV luna. diameter/BSA LV sys. diameter/BSA RVD1 (basal) (cm/m^2): 2.3 (cm/m^2): 1.6 : 6.1 cm RVD2 (mid) : 5.5 cm Doppler Measurements & Calculations Ao V2 max MV E max willy MV E/A: 168.9 TR max willy : 132.5 cm/sec : 80.5 cm/sec Med Peak E' Willy : 263.6 cm/sec Ao max PG MV A max willy TR max PG : 7.0 mmHg : 0.48 cm/sec E/E' med: 13.2 : 27.8 mmHg Ao mean PG PA V2 max : 4.4 mmHg : 84.9 cm/sec PA mean PG PA Accel Time : 0.09 sec MV dec time Ao V2 mean PA V2 mean : 0.21 sec : 100.1 cm/sec : 58.5 cm/sec Ao V2 VTI: 28.9 cm PA pr(Accel) : 49.1 mmHg Reading Physician:PM
--- NOTE | 2016-03-03 20:58 | DRSVH ---
PROCEDURE: CT ANGIO CHEST PULMONARY EMBOLISM ([id number]) INDICATIONS: 75 year-old male with hemoptysis and right ventricular volume overload. TECHNIQUE: After the administration of intravenous contrast, 2 mm thick sections acquired from the pulmonary api sheldon to the posterior costophrenic angles. 3-dimensional maximum intensity projection (MIP) coronal a nd sagittal reformats were then acquired through the thorax. For radiation dose reduction, the follo wing was used: automated exposure control, adjustment of mA and/or kV according to patient size. COMPARISON: None. FINDINGS: Image quality: Excellent. Pulmonary arteries: Pulmonary arteries demonstrate no intraluminal filling defects to suggest centra l pulmonary embolism. The main pulmonary artery is enlarged up to 3.4 cm diameter. Lungs and pleura: Patchy bilateral posterior upper lobe opacities are present, superimposed on a back ground of apical predominant emphysema. Small bilateral pleural effusions are present, as well as carissa ateral pleural calcifications. Central and peripheral airways are patent. Mediastinum: There is mild cardiomegaly, with enlargement of both atria. No pericardial effusion. No mediastinal or hilar adenopathy. Thoracic aorta is normal in caliber and enhancement. Esophagus is normal in caliber, with a small hiatal hernia. Bones and chest wall: No suspicious bony lesions. Minimal T4, minimal T5, moderate T6, mild T8, mode rate T9, mild T11, and moderate T12 vertebral body compression fractures are present. Sagittal reform atted images demonstrate cortical discontinuity to the anterior T12 vertebral body. Thyroid gland is normal in size but incompletely visualized. No axillary or supraclavicular adenopathy. Abdomen: There is reflux of contrast into patent hepatic veins. Liver capsule demonstrates nodular c ontour, indicating cirrhosis. There is perihepatic and perisplenic ascites. 3.2 cm medial right renal cortical simple cyst is present. IMPRESSION: 1. No evidence for central pulmonary embolism. Enlarged main pulmonary artery would be consistent wit h pulmonary arterial hypertension. 2. Significant reflux of intravenous contrast into patent hepatic veins would be consistent with michoacano estive right heart failure. Disproportionately enlarged right and left atria would suggest tricuspid and mitral valve stenoses. 3. Findings suggestive of bilateral posterior upper lobe bronchopneumonia, on a background of emphyse ma. 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 4. Cirrhotic liver, along with small perihepatic and perisplenic ascites. 5. Multiple nonacute mid and lower thoracic spine compression fractures as described above, as well a s acute moderate T12 anterior wedge compression fracture. 6. Small retrocardiac hiatal hernia. Dictated by: Deng Steinberg M.D. on 03/03/2016 at 20:56 Approved by: Deng Steinberg M.D. on 03/03/2016 at 20:56
[2016-03-03] MEDS ORDERED: Glucose 40% Oral Gel 15 Gm Tube PO PRN (21:35)
[2016-03-03] MEDS: Insulin LISPRO 300 Unit/3 mL Inj SUBQ SCH (22:11)
[2016-03-04] VITALS (11 sets, daily range): BP systolic 98–126; BP diastolic 57–68; PULSE 73–91; RESP 16–20; O2SAT 91–97
[2016-03-04] MEDS: Piperacillin-Tazo 3.375 Gm Inj 3.375 GM in Dextrose 5% Minibag Plus 50 ML IV SCH ×3 (00:19→16:53)
--- NOTE | 2016-03-04 01:00 | NUR ---
retention bladder scan showed 900mL in the beginning of the shift. Pt had no urge to void. Verified with MD if needing to do a lizarraga or In & Out cath. Ordered In & out cath and will reassess lizarraga need in AM. Pt is very edematous on his penis and scrotum; very difficult to do an In and out cath. resp therapist helped this primary RN to do the cath. 600mL of clear yellow urine was drained out; Pt had moderate pain with the procedure. Pt was incontinent once this shift. will bladder scan this shift. Addendum: 03/04/16 at 0615 by HIMANSHU GARCIA RN Pt was incontinent x1. Bladder scan showed 825mL. In and out cath done; drained 700mL out. able to pull foreskin back. Pt tolerated procedure well.
[2016-03-04] MEDS: Albuterol-Ipratropium 3 mL Inhalation Solution NEB SCH ×4 (07:41→19:42)
[2016-03-04 07:48] LABS: BASOPHILS % (AUTO) 0 % (0-3); EOSINOPHILS % (AUTO) 0 % (0-5); MONOCYTES % (AUTO) 16.7 % (4-12); Mean Corpuscular Hemoglobin 29.8 pg (27.0-35.0); Platelet Count 106 bil/L (150-400)
[2016-03-04] MEDS: Budesonide 0.5 mg/2 mL Inhalation Solution NEB SCH ×2 (07:51→19:42)
[2016-03-04] MEDS: Vancomycin Dose per Pharmacist XX SCH (08:30)
[2016-03-04] MEDS ORDERED: levoFLOXacin Inj 750 MG in IV Premix 1 EACH IV SCH (09:00)
[2016-03-04] MEDS: Insulin LISPRO 300 Unit/3 mL Inj SUBQ SCH ×4 (09:07→19:45)
[2016-03-04] MEDS: Isosorbide Mononitrate 30 mg ER24 Tablet PO SCH ×2 (09:07→19:58)
--- NOTE | 2016-03-04 09:21 | NUR ---
[facility] called [facility] and left another message for admissions Edna requesting a return call to discuss pt. SANCHEZ Casillas
--- NOTE | 2016-03-04 09:47 | PCM.PNMED ---
Subjective Date of Service Mar 04, 2016 Subjective "Narinder" had a CT chest done yesterday after the echocardiogram showed right ventricular volume overload, the CT angio did not show a pulmonary embolism, but did show evidence of emphysema and bilateral upper lobe pneumonia. The patient has been having urinary retention with several bladder cans showing > 600mL of urine for which he has had straight catheterization. Recall that he has a hx of bladder cancer. Exam Vital Signs Vital Sign - Last Date Time Temp Pulse Resp B/P Pulse Ox O2 Delivery O2 Flow Rate FiO2 03/04/16 07:42 91 91 Nasal Cannula 2.00 03/04/16 04:45 36.9 18 124/66 Intake and Output 03/03/16 03/03/16 03/04/16 Cumulative From/Thru 15:00 23:00 07:00 03/02/16 08:13 - 03/04/16 06:13 Intake Total 690 ml 1896 ml 60 ml 3350 ml Output Total 0 ml 2999 ml 700 ml 4474 ml Balance 690 ml -1103 ml -640 ml -1124 ml Intake Oral 690 ml 1545 ml 2435 ml IV Total 351 ml 60 ml 915 ml Output Urine Total 0 ml 2999 ml 700 ml 4474 ml # Bowel Movements 1 1 Exam General: Chronically ill appearing male resting in bed, kyphotic. Supplemental oxygen via nasal cannula at 3L/h. HEENT: Large mesh dressing in place over the occiput to the frontal region. PERRLA Cardiac: Irregularly irregular. There is a holosystolic murmur best heard at the left upper sternal border Respiratory: Poor inspiratory effort. Coughing. Diffuse wheezing and rales. No gasping or tripoding. Extremities: 1+ edema up to the knee. The right 4th distal toe is black, right plantar hallux is black. Feet are cold. There is fine scaling present on both lower legs consistent with chronic stasis. Left dorsal lateral foot ulceration under dressing which is clean, dry, and intact. The dressing was briefly removed for examination, the ulcer has a moderate amount of coagulated blood present at the margins, no surrounding erythema. IVs and Medications Medications Reviewed: Medications were reviewed in detail Lab and Diagnostics Result Diagram: 03/04/16 0710 03/04/16 0710 X-Rays, CTs and MRIs CT angio chest 03/03/16: FINDINGS: Image quality: Excellent. Pulmonary arteries: Pulmonary arteries demonstrate no intraluminal filling defects to suggest central pulmonary embolism. The main pulmonary artery is enlarged up to 3.4 cm diameter. Lungs and pleura: Patchy bilateral posterior upper lobe opacities are present, superimposed on a background of apical predominant emphysema. Small bilateral pleural effusions are present, as well as bilateral pleural calcifications. Central and peripheral airways are patent. Mediastinum: There is mild cardiomegaly, with enlargement of both atria. No pericardial effusion. No mediastinal or hilar adenopathy. Thoracic aorta is normal in caliber and enhancement. Esophagus is normal in caliber, with a small hiatal hernia. Bones and chest wall: No suspicious bony lesions. Minimal T4, minimal T5, moderate T6, mild T8, moderate T9, mild T11, and moderate T12 vertebral body compression fractures are present. Sagittal reformatted images demonstrate cortical discontinuity to the anterior T12 vertebral body. Thyroid gland is normal in size but incompletely visualized. No axillary or supraclavicular adenopathy. Abdomen: There is reflux of contrast into patent hepatic veins. Liver capsule demonstrates nodular contour, indicating cirrhosis. There is perihepatic and perisplenic ascites. 3.2 cm medial right renal cortical simple cyst is present. IMPRESSION: 1. No evidence for central pulmonary embolism. Enlarged main pulmonary artery would be consistent with pulmonary arterial hypertension. 2. Significant reflux of intravenous contrast into patent hepatic veins would be consistent with congestive right heart failure. Disproportionately enlarged right and left atria would suggest tricuspid and mitral valve stenoses. 3. Findings suggestive of bilateral posterior upper lobe bronchopneumonia, on a background of emphysema. 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 4. Cirrhotic liver, along with small perihepatic and perisplenic ascites. 5. Multiple nonacute mid and lower thoracic spine compression fractures as described above, as well as acute moderate T12 anterior wedge compression fracture. 6. Small retrocardiac hiatal hernia. Dictated by: Deng Steinberg M.D. on 03/03/2016 at 20:56 Assessment & Plan Guillermo is a 75yo male with reported history of COPD, congestive heart failure, atrial fibrillation, and recent hospitalization at [facility] for unknown reason, who presented to [facility] via EMS from [facility] after he experienced a GLF with resultant posterior scalp laceration. Found to have bilateral upper lobe pneumonia and left sided pleural effusion. Hospital day # 2 1. Pneumonia, unclear if this is hospital acquired as records from [facility] have not yet been received. Will treat for possible resistance - Resp PCR negative - Blood cultures pending - procalcitonin level ordered - Antibiotic therapy with Zosyn and vancomycin 2. Acute respiratory failure, present on admission. Ongoing - Potentially acute on chronic given his hx of COPD. - Suspect this is due to a combination of pneumonia, COPD and CHF - Supplemental oxygen as needed to maintain 88-92% O2 saturation - Consider arranging home O2 3. Acute exacerbation COPD, present on admission. Ongoing - Evidence of emphysema on CT chest and known hx of asbestos exposure - Discuss the pleural effusion with radiology to determine if thoracentesis for evaluation of the fluid is possible - hx of chronic steroid use - Duonebs QIDWA - Accunebs q2h prn - Budesonide BID - Continue prednisone 40mg daily 4. Acute exacerbation CHF, evidence of right sided heart failure on echocardiogram - Cor pulmonale component - Continues to have pedal edema - Home diuretics: Torsemide 80mg every other day alternating with 60mg daily on alternate days - Lasix 20mg IV q6h + metolazone 5mg daily x3 days - Re-eval fluid status daily; convert to oral diuretics after more improvement 5. Acute kidney injury on CKD III, present on admission and worsened after receiving contrast for CT angio - Contrast nephropathy contributing to worsening renal function - On admit: Cr 1.81, now Cr 2.01 with eGFR of 38 - He has a left sided fistula already placed in preparation for dialysis, if needed which has never been utilized - Renal consultation 6. Head laceration secondary to GLF, acute, present on admission. Ongoing - CT brain without acute intracranial abnormality - Stapled in Emergency department - Wound care to follow 7. Ground level fall, acute, unclear if this is a recurrent issue for him or if this was an unwitnessed syncopal episode - Etiology not entirely clear - PT evaluation 8. Chronic left foot ulceration with myonecrosis, present on admission. - Wound care consult - Podiatry consultation 9. Bladder cancer, chronic. Presumed stable - Reportedly, he received BCG instillations to treatment - Currently having urinary retention for which he has had several straight caths , consider placement of a lizarraga catheter if this fails to improve 10. Elevated troponin undetermined significance, chronicity unknown - On admit: 0.142, increased to 0.163 then decreased to 0.13 - Suspect this is secondary to CKD 11. Hypothyroidism, chronic. Presumed stable - Continued levothyroxine at reported dose - PRN: Fever/antiemetic/bowel/pain - DIET: Heart healthy/CC VTE Prophylaxis: Sub-Q Heparin (Unfractionated), Other (initially held due to bleeding scalp wound, starting subcutaneous heparin) Resuscitation Status: DNR/DNI:Do Not Resuscitate/Intubate Attending Statement The patient was seen and examined together with Dr. Mathias on 03/04/2016 and I agree with the history, exam and plan as outlined in the note above. Adriane Mathias DO Mar 04, 2016 09:07 Ranjit Calderon MD Mar 05, 2016 10:36
[2016-03-04 10:01] LABS: INR 1.15 ratio
[2016-03-04] MEDS: Heparin 5,000 Unit/mL Inj SUBQ SCH ×2 (10:29→19:58)
[2016-03-04] MEDS: Polyethylene Glycol (PEG) 17 Gm Powder PO SCH (10:29)
--- NOTE | 2016-03-04 12:40 | NUR ---
Spoke with Edna Bowling at [facility] in [place], they are currently at capacity in their rehab unit and do not anticipate any discharges in the near future. Left message for admissions at [facility] in [place], referral was faxed yesterday and they are contracted with insurance. [facility] can accept patient when ready, they would like to be able to see nursing notes 24 hours prior to discharge. Updated CONTRACTING ANALYST Addendum: 03/04/16 at 1519 by NKECHI KING CM Tracy Rivera recreation coordinator at [facility] has called and they are unable to accept this patient. Updated CONTRACTING ANALYST
[2016-03-04] MEDS: Vancomycin 1 Gm/200 mL D5W Premix IV SCH (13:35)
--- NOTE | 2016-03-04 15:34 | NUR ---
Social Work-continued d/c planning: Data:EMR Reviewed. SW updated by UR specialist that [facility] does not have any beds, [facility] has declined pt, and [facility] has accepted pt. SW placed a call to pt's daughter Faiza to discuss. SW explained the above information and pt's daughter is happy with placement at [facility]. SW explained that insurance authorization will need to be obtained and insurance will either approve or deny SNF placement, daughter states an understanding. UR specialist to contact [facility] and inform them to work on authorization. PT evaluation is pending. Paperwork in the chart. SW will continue to follow. Assessment:Pt who would benefit from SNF. Plan:[facility] has accepted pt. Insurance authorization will need to be obtained. Paperwork in the chart. SW will continue to follow. SANCHEZ Casillas
--- NOTE | 2016-03-04 15:45 | NUR ---
Evaluation completed. Please go to "Notes" then click on "Assessments and Notes" (bottom left corner of screen). Then select appropriate discipline tab on top of screen.
--- NOTE | 2016-03-04 15:55 | DRSVH ---
PROCEDURE: US RENAL SONOGRAM INDICATIONS: MARITZA on CKD TECHNIQUE: Real-time scanning was performed of the kidneys and bladder, with image documentation. COMPARISON: None. FINDINGS: Kidneys: Kidneys are mildly asymmetric in size. Right kidney measures 7.9 cm long; left kidney portillo ures 9.1 cm long. Right renal cortical thickness is 1.2 cm; left renal cortical thickness is 1.0 cm. Renal cortical echotexture is normal. No hydronephrosis or nephrolithiasis. No suspicious solid m ass lesions. There is a simple appearing right 2.9 cm maximum dimension renal cortical cyst and a le ft superior mildly complex cyst measures up to 1.8 x 1.5 x 1.4 cm, containing low-level internal echo es likely representing prior hemorrhage or proteinaceous content. Bladder: Pre-void bladder volume is 412 mL. Post-void residual is essentially the same mL. Pre-voi d images demonstrate no intraluminal masses or stones. On pre-void images, neither ureteral jets are noted with color Doppler interrogation. (Of note, ureteral jets may not be detectable in up to 25% of cases due to insufficient differences in specific gravity between ureteral and bladder urine). Miscellaneous: No free pelvic fluid. Note is made of abnormal gallbladder wall thickening up to 9 m m. IMPRESSION: 1. There is an unexpected finding of 9 mm of gallbladder wall thickening with the upper limits of no rmal of 3 mm. Please correlate clinically to determine potential underlying etiology and whether ricardo gical consultation as warranted. 2. Simple right renal cortical cyst, minimally complex left renal cortical cyst, no hydronephrosis o r nephrolithiasis is found. The left kidney is somewhat larger than that on the right, mild asymmetr y. 3. Despite presence of 412 cc prevoid volume the patient could not void voluntarily. Urinary retent ion is presumed. Dictated by: Kevin Delgado M.D. on 03/04/2016 at 15:53 Approved by: Kevin Delgado M.D. on 03/04/2016 at 15:53
--- NOTE | 2016-03-04 16:39 | NUR ---
Retention Pt has not voided, bladder scanned, 598 mls, notifed received order for lizarraga. Placed lizarraga 16fr at 1627, immediately got 500mL out. Will continue to monitor.
[2016-03-04] MEDS ORDERED: 0.9% Sodium Chloride 500 ML IV ONE (18:20)
--- NOTE | 2016-03-04 22:20 | CONS ---
[address] [address] CONSULTATION REPORT PATIENT: SHANAE TYLER : 1940 MR#: [id number] ADMIT: 03/02/2016 JOB ID: [id number] DATE OF SERVICE: REQUESTING PHYSICIAN: Mert Calderon MD REASON FOR CONSULTATION: Management of abnormal kidney function test. CHIEF COMPLAINT: Head injury secondary to a syncopal episode. PRESENT ILLNESS: This is a 75-year-old gentleman with significant past medical history of COPD, CHF, atrial fibrillation, CKD stage 3, hypothyroid, bladder cancer status post TURP, presented to the hospital due to the syncopal episode and head injury. The patient also found to have COPD and CHF exacerbation. The patient is a poor historian. I have gathered history from the medical record. Apparently, patient was recently admitted at [facility] in [place] for the infection and was sent to [facility] for rehabilitation. His initial blood work showed a BUN of 63, creatinine of 1.81. The patient received IV contrast on March [address] PE protocol. Apparently today, his serum creatinine has gone up to 2.01 and BUN of 67, thus Renal Service was consulted to manage acute kidney injury. Of note, the patient was found to have urinary retention with a urine volume over 600. Guajardo catheter has been inserted. CT chest showed evidence of bilateral posterior upper lobe bronchopneumonia on the background of emphysema. Patient currently on IV Zosyn and vancomycin treated for health-care associated pneumonia. Echocardiogram showed ejection fraction of 50%, flattened septum is consistent with RV volume overload, right ventricle is moderate to severely dilated. PAST MEDICAL HISTORY: Chronic systolic heart failure, COPD, atrial fibrillation, chronic kidney disease stage 3, hypothyroid, bladder cancer, status post TURP, right-sided heart failure, depression, dyslipidemia, peripheral vascular disease, CVA. SURGICAL HISTORY: Status post CABG times two, status post cardioversion, balloon angioplasty, left external iliac stent placement, right pulmonary nodule thoracotomy, diskectomy L5-S1, left common femoral endarterectomy, hemilaminotomy, left AV fistula creation, CBG instillation. FAMILY HISTORY: Positive for heart disease in the family. SOCIAL HISTORY: Patient lives at the long-term facility. Denies current use alcohol, illicit drugs. The patient is an active smoker. ALLERGIES: No drug allergies. MEDICATIONS: Reviewed. REVIEW OF SYSTEMS: A 14-point review of systems was performed. PHYSICAL EXAMINATION: Vitals: Temperature 36.6, pulse 73, respiratory 18, blood pressure 98/57, O2 sat 95% on nasal cannula 1 L. General appearance: Chronically ill looking, in no acute distress. HEENT: Positive for temporal muscle wasting. Dry mucous membranes. Mild pallor. No jaundice. No JVD. No lymphadenopathy. No thyroid enlargement. Heart: Irregular rhythm. Normal S1, S2. Systolic murmur noted. Respiratory: at the bases. Expiratory wheezing noted. Abdomen soft, active bowel sounds. No hepatosplenomegaly. Extremities: 1+ edema with poor dorsalis pedis. Positive chronic skin changes on the lower extremity. LABORATORY: Hemoglobin 8.4, WBCs 7.5, platelets 106. Sodium 139, potassium 3.9, chloride 96, bicarb 31, BUN 67, creatinine 2.01. ASSESSMENT: This is a very complicated 75-year-old male with multiple past medical history as listed above, who came in due to ground level fall and head injury. The patient was recently hospitalized at the [facility] in [place] due to infection. The patient underwent CT angio PE protocol yesterday. There was no evidence of central pulmonary embolism. We found that there was significant reflux of intravenous contrast into and hepatic vein would be consistent with right-sided heart failure. Also found bilateral posterior upper lobe pneumonia and cirrhotic liver. The patient currently treating for healthcare-associated pneumonia, congestive heart failure exacerbation. He was also found to have urinary retention. A Guajardo catheter has been in place. His initial serum creatinine was 1.8 currently at 2.01. For some reason, patient already had an arteriovenous fistula placement. It has not been used. I believe that the etiology of acute kidney injury is due to contrast-induced nephropathy. Cardiorenal syndrome also plays a major role here. The patient has been on the diuretics. Currently is metolazone 5 mg once a day. Of note, he has worsening metabolic alkalosis with the question whether he has been over diuresed. At this point, I would like to hold his diuretics and give him gentle intravenous fluid with normal saline at 40 cc/hour to run for 10 hours and will stop it in the morning. We will repeat his kidney function test and ABG in the morning. We will re-assess his volume status on a daily basis to try to figure out the appropriate diuretic dosage for him preventing over-diuresis and under-diuresis. We will keep the Guajardo catheter for now. Thank you for the consultation. We will monitor along with you.
[2016-03-05] VITALS (12 sets, daily range): BP systolic 107–139; BP diastolic 53–72; PULSE 66–85; RESP 16–20; O2SAT 91–95
[2016-03-05] MEDS: Piperacillin-Tazo 3.375 Gm Inj 3.375 GM in Dextrose 5% Minibag Plus 50 ML IV SCH ×2 (00:19→08:09)
[2016-03-05 02:28] LABS: APPEARANCE,URINE CLEAR (CLEAR,HAZY); COLOR,URINE YELLOW (YELLOW); OCCULT BLOOD,URINE SMALL (NEGATIVE); UROBILINOGEN,URINE NORMAL (NORMAL)
--- NOTE | 2016-03-05 04:40 | NUR ---
Mentation Pt AOx3, drowsy this shift, resting between interventions. Guajardo catheter in place, draining to gravity. UA sample sent. NS @ 40mls/hr initiated to IV. Turn schedule ongoing for pt, pt able to turn self with 1 person assist in bed mobility. Pt reports feeling cold throughout shift, warm blankets given.
[2016-03-05 06:45] LABS: BASOPHILS % (AUTO) 0.2 % (0-3); EOSINOPHILS % (AUTO) 3.7 % (0-5); MONOCYTES % (AUTO) 13.7 % (4-12); Mean Corpuscular Hemoglobin 30.6 pg (27.0-35.0); NEUTROPHILS % (AUTO) 67.7 % (40-74); Platelet Count 115 bil/L (150-400)
[2016-03-05 07:02] LABS: Magnesium 2.4 mg/dL (1.6-2.6); Phosphorus 4.8 mg/dL (2.5-4.9)
[2016-03-05] MEDS: Budesonide 0.5 mg/2 mL Inhalation Solution NEB SCH ×2 (07:19→20:43)
[2016-03-05] MEDS: Albuterol-Ipratropium 3 mL Inhalation Solution NEB SCH ×4 (07:19→19:35)
[2016-03-05] MEDS: Insulin LISPRO 300 Unit/3 mL Inj SUBQ SCH ×4 (08:11→21:08)
[2016-03-05] MEDS: predniSONE 20 mg Tablet PO SCH (08:12)
[2016-03-05] MEDS: Isosorbide Mononitrate 30 mg ER24 Tablet PO SCH ×2 (08:12→19:31)
[2016-03-05] MEDS: Heparin 5,000 Unit/mL Inj SUBQ SCH ×2 (08:22→19:30)
[2016-03-05] MEDS: Polyethylene Glycol (PEG) 17 Gm Powder PO SCH (08:22)
[2016-03-05] MEDS: Vancomycin Dose per Pharmacist XX SCH (08:30)
--- NOTE | 2016-03-05 09:12 | NUR ---
AKUA: is being done by SENIOR OFFICE ASSISTANT, patient stated he would like to have his daughter be the one with this message. SENIOR OFFICE ASSISTANT is following up with the daughter via phone today.
--- NOTE | 2016-03-05 09:15 | NUR ---
AKUA done with daughter Faiza via Phone. SANCHEZ Casillas
--- NOTE | 2016-03-05 09:15 | PCM.PNMED ---
Subjective Date of Service Mar 05, 2016 Subjective "Narinder" reports that he is feeling like his usual self in regards to dyspnea. He has been successfully weaned off of supplemental oxygen. Exam Vital Signs Vital Sign - Last Date Time Temp Pulse Resp B/P Pulse Ox O2 Delivery O2 Flow Rate FiO2 03/05/16 07:20 70 18 95 Room Air 03/05/16 05:04 36.8 116/62 03/04/16 12:25 1.00 Intake and Output 03/04/16 03/04/16 03/05/16 Cumulative From/Thru 15:00 23:00 07:00 03/02/16 08:13 - 03/05/16 06:05 Intake Total 696 ml 820 ml 4866 ml Output Total 598 ml 600 ml 5672 ml Balance 98 ml 220 ml -806 ml Intake Oral 436 ml 300 ml 3171 ml IV Total 260 ml 520 ml 1695 ml Output Urine Total 598 ml 600 ml 5672 ml # Bowel Movements 0 1 Exam General: Chronically ill appearing male resting in bed, kyphotic. HEENT: Posterior scalp laceration with tawana in place, no erythema or drainage , there is dried blood along the wound edges which are well approximated. PERRLA Cardiac: Irregularly irregular. There is a holosystolic murmur best heard at the left upper sternal border Respiratory: Poor inspiratory effort. Subtle, diffuse wheezing and bibasilar crackles present. No gasping or tripoding. Extremities: 1+ edema up to mid thigh. The right 4th distal toe is black on the plantar surface. Feet are cold. There is fine scaling present on both lower legs consistent with chronic stasis. Left dorsal lateral foot ulceration under dressing which is clean, dry, and intact. The dressing was briefly removed for examination, the 4cm x 5cm x 1mm deep ulcer has a moderate amount of coagulated blood present at the margins and base, no surrounding erythema. IVs and Medications Medications Reviewed: Medications were reviewed in detail Lab and Diagnostics Result Diagram: 03/05/16 0550 03/05/16 0550 X-Rays, CTs and MRIs CT angio chest 03/03/16: FINDINGS: Image quality: Excellent. Pulmonary arteries: Pulmonary arteries demonstrate no intraluminal filling defects to suggest central pulmonary embolism. The main pulmonary artery is enlarged up to 3.4 cm diameter. Lungs and pleura: Patchy bilateral posterior upper lobe opacities are present, superimposed on a background of apical predominant emphysema. Small bilateral pleural effusions are present, as well as bilateral pleural calcifications. Central and peripheral airways are patent. Mediastinum: There is mild cardiomegaly, with enlargement of both atria. No pericardial effusion. No mediastinal or hilar adenopathy. Thoracic aorta is normal in caliber and enhancement. Esophagus is normal in caliber, with a small hiatal hernia. Bones and chest wall: No suspicious bony lesions. Minimal T4, minimal T5, moderate T6, mild T8, moderate T9, mild T11, and moderate T12 vertebral body compression fractures are present. Sagittal reformatted images demonstrate cortical discontinuity to the anterior T12 vertebral body. Thyroid gland is normal in size but incompletely visualized. No axillary or supraclavicular adenopathy. Abdomen: There is reflux of contrast into patent hepatic veins. Liver capsule demonstrates nodular contour, indicating cirrhosis. There is perihepatic and perisplenic ascites. 3.2 cm medial right renal cortical simple cyst is present. IMPRESSION: 1. No evidence for central pulmonary embolism. Enlarged main pulmonary artery would be consistent with pulmonary arterial hypertension. 2. Significant reflux of intravenous contrast into patent hepatic veins would be consistent with congestive right heart failure. Disproportionately enlarged right and left atria would suggest tricuspid and mitral valve stenoses. 3. Findings suggestive of bilateral posterior upper lobe bronchopneumonia, on a background of emphysema. 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 4. Cirrhotic liver, along with small perihepatic and perisplenic ascites. 5. Multiple nonacute mid and lower thoracic spine compression fractures as described above, as well as acute moderate T12 anterior wedge compression fracture. 6. Small retrocardiac hiatal hernia. Dictated by: Deng Steinberg M.D. on 03/03/2016 at 20:56 Assessment & Plan Guillermo is a 75yo male with reported history of COPD, congestive heart failure, atrial fibrillation, and recent hospitalization at [facility] for unknown reason, who presented to [facility] via EMS from [facility] after he experienced a GLF with resultant posterior scalp laceration. Found to have bilateral upper lobe pneumonia and left sided pleural effusion. Hospital day # 2 1. Acute kidney injury on CKD stage IV, present on admission and worsened after receiving contrast for CT angio - Contrast nephropathy contributing to worsening renal function - On admit: Cr 1.81, now Cr 2.21 with eGFR of 26 - Renal US showing urinary retention without obvious cause. - He has a left sided fistula already placed in preparation for dialysis, if needed which has never been utilized - Nephrology expertise appreciated 2. Acute exacerbation COPD, present on admission. Ongoing - Evidence of emphysema on CT chest and known hx of asbestos exposure - Discuss the pleural effusion with radiology to determine if thoracentesis for evaluation of the fluid is possible - hx of chronic steroid use - Duonebs QIDWA - Accunebs q2h prn - Budesonide BID - Continue prednisone 40mg daily 3. Health care acquired pneumonia - Recent hospitalization at [facility] in [place] for COPD exacerbation and pneumonia, was treated with Azithromycin and Ceftriaxone - Resp PCR negative and blood cultures without bacterial growth - Antibiotic therapy transitioned to oral doxycycline BID. Received 3 days of IV Zosyn and Vancomycin 4. Acute exacerbation CHF, evidence of right sided heart failure on echocardiogram - Cor pulmonale component - Continues to have pedal edema, slightly worse today - Holding diuretic therapy given his worsening renal function and potential over diuresis - Re-eval fluid status daily 5.Acute respiratory failure, present on admission, improved - No longer requiring supplemental oxygen to maintain 88-92% O2 saturation - Potentially acute on chronic given his hx of COPD. - Suspect this is due to a combination of pneumonia, COPD and CHF 6. Head laceration secondary to GLF, acute, present on admission. Ongoing - Wound is well appearing - CT brain without acute intracranial abnormality - Stapled in Emergency department - Wound care to follow 7. Ground level fall, acute, unclear if this is a recurrent issue for him or if this was an unwitnessed syncopal episode - Etiology not entirely clear - PT evaluation 8. Chronic left foot ulceration with myonecrosis, present on admission. - Wound care consult - Podiatry consultation 9. Bladder cancer, chronic. Presumed stable - Reportedly, he received BCG instillations and transurethral resection of of bladder tumor for past treatment - Currently having urinary retention for which he has had several straight caths , Guajardo placed 10. Elevated troponin undetermined significance, chronicity unknown - On admit: 0.142, increased to 0.163 then decreased to 0.13 - Suspect this is secondary to CKD 11. Hypothyroidism, chronic. Presumed stable - Continued levothyroxine at reported dose - Acetaminophen PRN: Fever/antiemetic/bowel/pain - DIET: Heart healthy/CC Disposition: Will likely discharge to SNF. He has had 3 hospitalizations in the past 3 months for his COPD and CHF, may benefit from a palliative consultation to discuss goals of care. VTE Prophylaxis: Sub-Q Heparin (Unfractionated), Other (initially held due to bleeding scalp wound, started subcutaneous heparin on 03/04/16) Resuscitation Status: DNR/DNI:Do Not Resuscitate/Intubate (POLST states Limited interventions. Patient does NOT want intubation or CPR.) Attending Statement The patient was seen and examined together with Dr. Mathias on 03/05/2016 and I agree with the history, exam and plan as outlined in the note above. Adriane Mathias DO Mar 05, 2016 09:15 Ranjit Calderon MD Mar 06, 2016 13:31
[2016-03-05] MEDS ORDERED: Vancomycin Serum Trough XX ONE (10:30)
--- NOTE | 2016-03-05 11:50 | NUR ---
Palliative Care Palliative Care received verbal order from Jada Mathias DO (resident) 03/05/16 to assist with goals of care. Patient is a 75 year old man with history of COPD, CHF and Afib. He was admitted 03/02/16 after GLF at his SNF. He is receiving care for bilateral pneumonia and left sided pleural effusion. Patient lives at [facility]. Patrick Bronson (daughter/person to contact) [phone], [place] () [phone] Palliative Care to follow. Claudia Pacheco
--- NOTE | 2016-03-05 12:09 | PCM.PNMED ---
Subjective Date of Service Mar 05, 2016 Subjective He has no new complaint today. Lying in bed comfortably. good UOP. Exam Vital Signs Vital Sign - Last Date Time Temp Pulse Resp B/P Pulse Ox O2 Delivery O2 Flow Rate FiO2 03/05/16 11:17 75 18 94 Room Air 03/05/16 10:48 35.8 107/64 03/04/16 12:25 1.00 Intake and Output 03/04/16 03/04/16 03/05/16 Cumulative From/Thru 15:00 23:00 07:00 03/02/16 08:13 - 03/05/16 06:05 Intake Total 696 ml 820 ml 4866 ml Output Total 598 ml 600 ml 5672 ml Balance 98 ml 220 ml -806 ml Intake Oral 436 ml 300 ml 3171 ml IV Total 260 ml 520 ml 1695 ml Output Urine Total 598 ml 600 ml 5672 ml # Bowel Movements 0 1 Exam PHYSICAL EXAMINATION: General appearance: Chronically ill looking, in no acute distress. HEENT: Positive for temporal muscle wasting. Dry mucous membranes. Mild pallor. No jaundice. No JVD. No lymphadenopathy. No thyroid enlargement. Heart: Irregular rhythm. Normal S1, S2. Systolic murmur noted. Respiratory: fines at the bases. Expiratory wheezing noted. Abdomen soft, active bowel sounds. No hepatosplenomegaly. Extremities: 1+ edema with poor dorsalis pedis. Positive chronic skin changes on the lower extremity. Lab and Diagnostics Result Diagram: 03/05/16 0550 03/05/16 0550 X-Rays, CTs and MRIs CT angio chest 03/03/16: FINDINGS: Image quality: Excellent. Pulmonary arteries: Pulmonary arteries demonstrate no intraluminal filling defects to suggest central pulmonary embolism. The main pulmonary artery is enlarged up to 3.4 cm diameter. Lungs and pleura: Patchy bilateral posterior upper lobe opacities are present, superimposed on a background of apical predominant emphysema. Small bilateral pleural effusions are present, as well as bilateral pleural calcifications. Central and peripheral airways are patent. Mediastinum: There is mild cardiomegaly, with enlargement of both atria. No pericardial effusion. No mediastinal or hilar adenopathy. Thoracic aorta is normal in caliber and enhancement. Esophagus is normal in caliber, with a small hiatal hernia. Bones and chest wall: No suspicious bony lesions. Minimal T4, minimal T5, moderate T6, mild T8, moderate T9, mild T11, and moderate T12 vertebral body compression fractures are present. Sagittal reformatted images demonstrate cortical discontinuity to the anterior T12 vertebral body. Thyroid gland is normal in size but incompletely visualized. No axillary or supraclavicular adenopathy. Abdomen: There is reflux of contrast into patent hepatic veins. Liver capsule demonstrates nodular contour, indicating cirrhosis. There is perihepatic and perisplenic ascites. 3.2 cm medial right renal cortical simple cyst is present. IMPRESSION: 1. No evidence for central pulmonary embolism. Enlarged main pulmonary artery would be consistent with pulmonary arterial hypertension. 2. Significant reflux of intravenous contrast into patent hepatic veins would be consistent with congestive right heart failure. Disproportionately enlarged right and left atria would suggest tricuspid and mitral valve stenoses. 3. Findings suggestive of bilateral posterior upper lobe bronchopneumonia, on a background of emphysema. 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 4. Cirrhotic liver, along with small perihepatic and perisplenic ascites. 5. Multiple nonacute mid and lower thoracic spine compression fractures as described above, as well as acute moderate T12 anterior wedge compression fracture. 6. Small retrocardiac hiatal hernia. Dictated by: Deng Steinberg M.D. on 03/03/2016 at 20:56 Assessment & Plan 1. MARITZA on CKD-4 - multifactorial:MATTHEW, overdiuresis, CRS. - s/p IVF overnight. - will d/c IVF, hold diuretic one more day. - repeat BMP in am. - will resume torsemide and metolazone in am. 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 2. Right sided heart failure. 3. COPD exacerbation. 4. Health-care assoc PNA. 5. Bladder cancer, now with urinary retention. VTE Prophylaxis: Sub-Q Heparin (Unfractionated), Other (initially held due to bleeding scalp wound, started subcutaneous heparin on 03/04/16) Resuscitation Status: DNR/DNI:Do Not Resuscitate/Intubate (POLST states Limited interventions. Patient does NOT want intubation or CPR.) Abby Villalpando MD Mar 05, 2016 12:08
--- NOTE | 2016-03-05 13:55 | NUR ---
Wound Care Pt seen at bedside for wound care of left dorsal foot wound. This wound measures 4 cm x 2.5 cm x 0.3 cm. Wound cleaned with saline, necrotic fibrin and slough removed with a 15# scalpel. Added Hydrogel to dressing to help with autolytic debridement between dressing changes. Covered with 4x4 gauze and wrapped with kerlix. right great toe and 4th toe covered with calmoseptine to encourage superficial wound healing. Will follow up with patient tomorrow for reassessment of foot ulcer. Head laceration, recommend shower cap treatment to head to clean off dried blood so laceration can truly be assessed, will remove tawana in am,.
--- NOTE | 2016-03-05 15:43 | NUR ---
Submitted pre auth for [facility] transfer to [facility] in [place] to [facility]. Updated WEB PAGE DEVELOPER
--- NOTE | 2016-03-05 16:06 | NUR ---
NUTRITION ASSESSMENT: ASSESS: 75 YO male admitted for head laceration s/p ground level fall. Palliative will be following for goals of care. PMHx: COPD, CHF, A-fib, bilat PNA, l sided pleural effusion, HTN, CKD IV, pre-diabetes, bladder cancer s/p TURP, Basal cell cancer, depression and PVD. LABS: Reviewed. BUN 70, Cr 2.21, Alb 2.6. MEDS: Reviewed. GI: BM x 1 (03/03) SKIN: L dorsal foot wound and head laceration. CURRENT WT: 87.2 kg. Admit wt 87.1 kg. DIET: Heart Healthy, Diabetic. PO intake 0-100% of meals with po avg ~50%. EST. NEEDS: WOUND, COPD, CKD STAGE IV Kcals: 9291-1402 kcals (30-35 kcals/kg BW) Protein: 70-105 g protein (0.8-1.2 g/kg BW) NUTRITION DIAGNOSIS: 1.) Inadequate oral intake related to confusion as evidenced by po intake of ~50% x 3 days. 2.) Increased nutrient needs related to increased demand for nutrients as evidenced by current skin issues and CKD and COPD. NUTRITION INTERVENTION: 1.) Will add Glucerna TID with meals. MONITOR / EVAL: PO intake, labs, nutritional status. Follow per moderate nutritional risk guidelines.
[2016-03-06] VITALS (10 sets, daily range): BP systolic 115–124; BP diastolic 54–80; PULSE 72–82; RESP 16–20; O2SAT 92–97
--- NOTE | 2016-03-06 05:35 | NUR ---
Hyperglycemia Blood Glucose 318 @ HS. insulin given per protocol, rechecked @0300- Blood glucose 228
[2016-03-06] MEDS: Albuterol-Ipratropium 3 mL Inhalation Solution NEB SCH ×4 (07:17→19:46)
[2016-03-06] MEDS: Budesonide 0.5 mg/2 mL Inhalation Solution NEB SCH ×2 (07:17→19:46)
[2016-03-06] MEDS: Heparin 5,000 Unit/mL Inj SUBQ SCH ×2 (07:57→20:16)
[2016-03-06 08:06] LABS: BASOPHILS % (AUTO) 0 % (0-3); EOSINOPHILS % (AUTO) 1.2 % (0-5); MONOCYTES % (AUTO) 14.2 % (4-12); Mean Corpuscular Hemoglobin 30.6 pg (27.0-35.0); Mean Corpuscular Volume 99.3 fL (81-100); NEUTROPHILS % (AUTO) 71.3 % (40-74); Platelet Count 113 bil/L (150-400)
[2016-03-06] MEDS: predniSONE 20 mg Tablet PO SCH (08:06)
[2016-03-06] MEDS: Insulin LISPRO 300 Unit/3 mL Inj SUBQ SCH ×5 (08:07→22:34)
[2016-03-06] MEDS: Isosorbide Mononitrate 30 mg ER24 Tablet PO SCH ×2 (08:08→20:13)
[2016-03-06] MEDS: Polyethylene Glycol (PEG) 17 Gm Powder PO SCH (08:09)
--- NOTE | 2016-03-06 11:38 | PCM.PNMED ---
Subjective Date of Service Mar 06, 2016 Subjective persistent cough, unable to sleep last night. poor appetite and malaise Exam Vital Signs Vital Sign - Last Date Time Temp Pulse Resp B/P Pulse Ox O2 Delivery O2 Flow Rate FiO2 03/06/16 11:31 82 16 92 Nasal Cannula 03/06/16 08:44 36.6 124/80 03/04/16 12:25 1.00 Intake and Output 03/05/16 03/05/16 03/06/16 Cumulative From/Thru 15:00 23:00 07:00 03/02/16 08:13 - 03/06/16 06:14 Intake Total 1001 ml 400 ml 6267 ml Output Total 1000 ml 550 ml 7222 ml Balance 1 ml -150 ml -955 ml Intake Oral 845 ml 400 ml 4416 ml IV Total 156 ml 1851 ml Output Urine Total 1000 ml 550 ml 7222 ml # Bowel Movements 1 2 Exam PHYSICAL EXAMINATION: General appearance: Chronically ill looking, in no acute distress. HEENT: Positive for temporal muscle wasting. Dry mucous membranes. Mild pallor. No jaundice. No JVD. No lymphadenopathy. No thyroid enlargement. Heart: Irregular rhythm. Normal S1, S2. Systolic murmur noted. Respiratory: coarse crackles. Expiratory wheezing noted. Abdomen soft, active bowel sounds. No hepatosplenomegaly. Extremities: 1+ edema with poor dorsalis pedis. Positive chronic skin changes on the lower extremity. Lab and Diagnostics Result Diagram: 03/06/16 0745 03/06/16 0745 X-Rays, CTs and MRIs CT angio chest 03/03/16: FINDINGS: Image quality: Excellent. Pulmonary arteries: Pulmonary arteries demonstrate no intraluminal filling defects to suggest central pulmonary embolism. The main pulmonary artery is enlarged up to 3.4 cm diameter. Lungs and pleura: Patchy bilateral posterior upper lobe opacities are present, superimposed on a background of apical predominant emphysema. Small bilateral pleural effusions are present, as well as bilateral pleural calcifications. Central and peripheral airways are patent. Mediastinum: There is mild cardiomegaly, with enlargement of both atria. No pericardial effusion. No mediastinal or hilar adenopathy. Thoracic aorta is normal in caliber and enhancement. Esophagus is normal in caliber, with a small hiatal hernia. Bones and chest wall: No suspicious bony lesions. Minimal T4, minimal T5, moderate T6, mild T8, moderate T9, mild T11, and moderate T12 vertebral body compression fractures are present. Sagittal reformatted images demonstrate cortical discontinuity to the anterior T12 vertebral body. Thyroid gland is normal in size but incompletely visualized. No axillary or supraclavicular adenopathy. Abdomen: There is reflux of contrast into patent hepatic veins. Liver capsule demonstrates nodular contour, indicating cirrhosis. There is perihepatic and perisplenic ascites. 3.2 cm medial right renal cortical simple cyst is present. IMPRESSION: 1. No evidence for central pulmonary embolism. Enlarged main pulmonary artery would be consistent with pulmonary arterial hypertension. 2. Significant reflux of intravenous contrast into patent hepatic veins would be consistent with congestive right heart failure. Disproportionately enlarged right and left atria would suggest tricuspid and mitral valve stenoses. 3. Findings suggestive of bilateral posterior upper lobe bronchopneumonia, on a background of emphysema. 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 4. Cirrhotic liver, along with small perihepatic and perisplenic ascites. 5. Multiple nonacute mid and lower thoracic spine compression fractures as described above, as well as acute moderate T12 anterior wedge compression fracture. 6. Small retrocardiac hiatal hernia. Dictated by: Deng Steinberg M.D. on 03/03/2016 at 20:56 Assessment & Plan 1. MARITZA on CKD-4 - multifactorial:MATTHEW, overdiuresis, CRS. - serum creatinine is plateauing. 2. Right sided heart failure. 3. COPD exacerbation. 4. Health-care assoc PNA. 5. Bladder cancer, now with urinary retention. Plan: - resume PO diuretics. - repeat BMP in am. - start bladder training. VTE Prophylaxis: Sub-Q Heparin (Unfractionated), Other (initially held due to bleeding scalp wound, started subcutaneous heparin on 03/04/16) Resuscitation Status: DNR/DNI:Do Not Resuscitate/Intubate (POLST states Limited interventions. Patient does NOT want intubation or CPR.) Abby Villalpando MD Mar 06, 2016 11:38
[2016-03-06] MEDS: Codeine-guaiFENesin 10 mL Syrup PO PRN ×2 (11:43→20:35)
[2016-03-06] MEDS: HYDROcodone-APAP 5-325 mg Tablet PO PRN (14:33)
--- NOTE | 2016-03-06 15:46 | PCM.PNMED ---
Subjective Date of Service Mar 06, 2016 Subjective "Narinder" had some dyspnea this morning and complained of cough, his oxygen saturation was 92% on room air while examining him. He denies any sputum or hemoptysis in the past 24hours. Exam Vital Signs Vital Sign - Last Date Time Temp Pulse Resp B/P Pulse Ox O2 Delivery O2 Flow Rate FiO2 03/06/16 15:22 72 16 94 Nasal Cannula 2.00 03/06/16 13:11 37.0 118/73 Intake and Output 03/05/16 03/05/16 03/06/16 Cumulative From/Thru 15:00 23:00 07:00 03/02/16 08:13 - 03/06/16 06:14 Intake Total 1001 ml 400 ml 6267 ml Output Total 1000 ml 550 ml 7222 ml Balance 1 ml -150 ml -955 ml Intake Oral 845 ml 400 ml 4416 ml IV Total 156 ml 1851 ml Output Urine Total 1000 ml 550 ml 7222 ml # Bowel Movements 1 2 Exam General: Chronically ill appearing male resting upright in bed, kyphotic. HEENT: Posterior scalp laceration with tawana in place, no erythema or drainage , there is dried blood along the wound edges which are well approximated. PERRLA , sclera anicteric. Cardiac: Irregularly irregular. There is a holosystolic murmur best heard at the left upper sternal border Respiratory: Poor inspiratory effort. Bibasilar crackles present. No gasping or tripoding. Extremities: 1+ edema up to mid thigh. The right 4th distal toe is wrapped in a clean and dry dressing. Feet are cold. There is fine scaling present on both lower legs consistent with chronic stasis. Left dorsal lateral foot ulceration under dressing which is clean, dry, and intact. : Lizarraga catheter in place draining pale yellow, translucent urine IVs and Medications Medications Reviewed: Medications were reviewed in detail Lab and Diagnostics Result Diagram: 03/06/16 0745 03/06/16 0745 X-Rays, CTs and MRIs CT angio chest 03/03/16: FINDINGS: Image quality: Excellent. Pulmonary arteries: Pulmonary arteries demonstrate no intraluminal filling defects to suggest central pulmonary embolism. The main pulmonary artery is enlarged up to 3.4 cm diameter. Lungs and pleura: Patchy bilateral posterior upper lobe opacities are present, superimposed on a background of apical predominant emphysema. Small bilateral pleural effusions are present, as well as bilateral pleural calcifications. Central and peripheral airways are patent. Mediastinum: There is mild cardiomegaly, with enlargement of both atria. No pericardial effusion. No mediastinal or hilar adenopathy. Thoracic aorta is normal in caliber and enhancement. Esophagus is normal in caliber, with a small hiatal hernia. Bones and chest wall: No suspicious bony lesions. Minimal T4, minimal T5, moderate T6, mild T8, moderate T9, mild T11, and moderate T12 vertebral body compression fractures are present. Sagittal reformatted images demonstrate cortical discontinuity to the anterior T12 vertebral body. Thyroid gland is normal in size but incompletely visualized. No axillary or supraclavicular adenopathy. Abdomen: There is reflux of contrast into patent hepatic veins. Liver capsule demonstrates nodular contour, indicating cirrhosis. There is perihepatic and perisplenic ascites. 3.2 cm medial right renal cortical simple cyst is present. IMPRESSION: 1. No evidence for central pulmonary embolism. Enlarged main pulmonary artery would be consistent with pulmonary arterial hypertension. 2. Significant reflux of intravenous contrast into patent hepatic veins would be consistent with congestive right heart failure. Disproportionately enlarged right and left atria would suggest tricuspid and mitral valve stenoses. 3. Findings suggestive of bilateral posterior upper lobe bronchopneumonia, on a background of emphysema. 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 4. Cirrhotic liver, along with small perihepatic and perisplenic ascites. 5. Multiple nonacute mid and lower thoracic spine compression fractures as described above, as well as acute moderate T12 anterior wedge compression fracture. 6. Small retrocardiac hiatal hernia. Dictated by: Deng Steinberg M.D. on 03/03/2016 at 20:56 Assessment & Plan Guillermo is a 75yo male with reported history of COPD, congestive heart failure, atrial fibrillation, and recent hospitalization at [facility] for CHF and COPD, who presented to [facility] via EMS from [facility] after he experienced a GLF with resultant posterior scalp laceration. Found to have bilateral upper lobe pneumonia and left sided pleural effusion. Hospital day # 4 1. Acute kidney injury on CKD stage IV, present on admission and worsened after receiving contrast for CT angio - Contrast nephropathy contributing to worsening renal function - On admit: Cr 1.81, now Cr 2.33 with eGFR of 26 - Diuretics held yesterday, Bumex started by nephrology today - He has a left sided fistula already placed in preparation for dialysis, if needed which has never been utilized - Nephrology expertise appreciated 2. Acute exacerbation COPD, present on admission. Ongoing - Evidence of emphysema on CT chest and known hx of asbestos exposure - hx of chronic steroid use - Duonebs QIDWA - Accunebs q2h prn - Budesonide BID - Plan to titrate down the prednisone dose after tomorrow 3. Health care acquired pneumonia, improving - Recent hospitalization at [facility] in [place] for COPD exacerbation, CHF and pneumonia, was treated with Azithromycin and Ceftriaxone - Resp PCR negative and blood cultures without bacterial growth - Suspect his dyspnea is due, at least in part, to the pneumonia - Antibiotic therapy transitioned to oral doxycycline BID, day 2. Received 3 days of IV Zosyn and Vancomycin 4. Acute exacerbation CHF, evidence of right sided heart failure on echocardiogram - Cor pulmonale component - Continues to have pedal edema, unchanged from yesterday - Diuretic therapy restarted by nephrology - Re-eval fluid status daily 5.Acute respiratory failure, present on admission, improved - No longer requiring supplemental oxygen to maintain 88-92% O2 saturation - Potentially acute on chronic given his hx of COPD. - Suspect this is due to a combination of pneumonia, COPD and CHF - Will have a home oxygen evaluation on the date of discharge 6. Head laceration secondary to GLF, acute, present on admission. Ongoing - Wound is well appearing - CT brain without acute intracranial abnormality - Stapled in Emergency department - Wound care to follow 7. Ground level fall, acute, unclear if this is a recurrent issue for him or if this was an unwitnessed syncopal episode - Etiology not entirely clear - PT to continue to work with the patient 8. Chronic left foot ulceration with myonecrosis, present on admission. - Wound care consulting 9. Bladder cancer, chronic. Presumed stable - Reportedly, he received BCG instillations and transurethral resection of of bladder tumor for past treatment - Currently having urinary retention for which a lizarraga catheter was placed 10. Elevated troponin undetermined significance, chronicity unknown - On admit: 0.142, increased to 0.163 then decreased to 0.13 - Suspect this is secondary to CKD 11. Hypothyroidism, chronic. Presumed stable - Continued levothyroxine at reported dose - Acetaminophen PRN: Fever/antiemetic/bowel/pain - DIET: Heart healthy/CC Disposition: Will likely discharge to SNF. He has had 3 hospitalizations in the past 3 months for his COPD and CHF. Palliative to discuss with the patient and his daughter VTE Prophylaxis: Sub-Q Heparin (Unfractionated), Other (initially held due to bleeding scalp wound, started subcutaneous heparin on 03/04/16) Resuscitation Status: DNR/DNI:Do Not Resuscitate/Intubate (POLST states Limited interventions. Patient does NOT want intubation or CPR.) Attending Statement The patient was seen and examined together with Dr. Mathias on 03/06/2016 and I agree with the history, exam and plan as outlined in the note above. Adriane Mathias DO Mar 06, 2016 15:46 Ranjit Calderon MD Mar 07, 2016 13:54
--- NOTE | 2016-03-06 16:40 | PCM.CONPAL ---
Date of Service Mar 06, 2016 Date of Hospital Admission: Mar 02, 2016 at 12:36 Date of Palliative Consult: Mar 06, 2016 Requesting Provider: Ranjit Calderon MD Reason Palliative Care Consult: Goals of Care Discussion Reason for Consultation 75yoM with significant comorbidities including CHF, CKD, pulmonary HTN, COPD, and diabetes to discuss goals of care Hospital Unit @time of consult: Medical/Pediatric Care Palliative Care Recommendation Mr. Guillermo Ramey is a pleasant 75 year old gentleman with reported history of COPD, combined systolic and diastolic congestive heart failure, atrial fibrillation, HTN, CKDIV, and recent infection resulting in pneumonia, that presented to [facility] via EMS from [facility] after he experienced a syncopal event that resulted in a head laceration. He was admitted for evaluation and treatment of GLF, in addition to acute respiratory failure likely secondary to suspected acute exacerbation of COPD, acute exacerbation CHF , and possible ongoing PNA. Summary of palliative recommendations: Palliative plan: [facility] and patient does qualify for Hospice. The palliative team met with patient while speaking via phone call to daughter Faiza at 14:30 today (03/06/2015) where we discussed Narinder's goals of care , as well as obtained some background discussion of Narinder's recent health. -Symptom management (Pain/other): Addressed by [facility] medicine team. Pain: minimal; continue to treat with Hydrocodone/APAP Cough/Dyspnea: Helped by Hydrocodone/APAP. Patient was started on Robitussin with Codeine to help control painful cough. -DPOA/Advanced Directives/POLST - DPOA - unknown at this time likely nAgelika or Daughter Faiza, will confirm tomorrow (03/07/2016) - POLST - will complete new form tomorrow, old form is months old and on refrigerator at home. - Code Status is DNR/DNI -Family Care Team Meeting (FCTM): Present were Palliative Team Vee VERA, Suhail Patterson D.O. as well as patient Guillermo Ramey (Bob) and via phone daughter Faiza. Vee Salguero started the conversation asking Narinder specifically what his goals moving forward were. Narinder stated frankly "I am hoping to get better and get out of here." He states that he has been sick and weak for a couple of months however he attributes some of his recent health to the [facility] [place] stating " I did not care for the [facility]" and "I was not getting nothing out of there." Faiza speaking next described her fathers recent health over the last several months. She states that Narinder spend approximately 1 month in the [facility] rehabilitation facility and his health really started to improve, and [facility] wanted to keep Narinder there for prison care however that would have required Narinder to sign over the vast majority of his social security check monthly which would have left his Faiza with very little support, so Narinder was transitioned home with [facility] nursing care as well as a meal delivery service. Narinder subsequently became progressively sick again and he had to be hospitalized again. On discharge from the hospital this time he was discharge to [facility] which was "not good" and "he did not like that". While at [facility] he had approximately 1 week work of cough, congestion and chest pain before being hospitalized again (current hospitalization) for pneumonia. Faiza reports that over the last several months Narinder has been getting weaker and struggling with sleep. She ends her talk with stating "Our goal is to get him stronger and get him closer to family in [place]." Vee Salguero now asks Narinder how he could envision his life moving forward if it was best case scenario. Narinder states simply "I can't even imagine that". Vee asks if that is because he has been so sick so often recently, and Narinder agrees with that statement. Faiza then states that Narinder "would like to be home with his but she can not take care of him" and follows that with "[place] and he can see Angelika more there, and at this time he needs round the clock care". Narinder ends this with " I just want to see her (Angelika) and talk to her, I don't even need to touch her." Faiza then states that her goals for herself and her mother Angelika are "While there is still hope we would like him treated." Vee Salguero then starts to describe dialysis stating that it is not being recommended by doctors right now, however it is normally three days a week and takes several hours each time. Faiza states that "This is all new to me , I don't know how any of this works". Narinder then asks how long somebody could live on dialysis. Vee states that everybody is different and it typically depends on the state of the persons health, Narinder is sick and weak enough that he likely wouldn't feel great after dialysis. Polojaden then stated "Narinder it is important for you to know you are in control of your healthcare." and "Given your stated goals, at some point in the future we may discuss Hospice, but not now." lastly "Do you have any more questions?" to which Narinder replied "No, I can't think of any." and Faiza agreed she had not questions either. -Disposition: see below. [facility] and patient does qualify for Hospice with end stage heart/ lung diseases and comorbidity of borderline ESRD, impending need for hemodialysis (HD). Patient understands that he will be given the option of HD when appropriate but that it won't help his other organ failures; he also understands that he is a candidate for hospice care if he opts to not have life-prolonging care including HD. Patient Goals: 1. To get well and get out of the hospital. 2. To get closer to his family in [place]. 3. To try and take more control of his health by starting a diabetic diet. Additional Medical Diagnoses with primary management by Hospitalist team include : CHF, COPD, Cor Pulmonale, CKD stage 4, diabetes Problems: End of Life Preferences 1. Patient is currently DNR/DNI in accordance with his wishes. Goals of Care 1. Get better and get out of here. 2. See and talk with Angelika more frequently. 3. Take care of affairs at home through proxy. Disposition Discharge to rehab facility [facility] in [place], [place] in the next several days. Resuscitation Status Resuscitation Status: DNR/DNI:Do Not Resuscitate/Intubate (POLST states Limited interventions. Patient does NOT want intubation or CPR.) POLST Updates/Changes Previous POLST?: Yes (currently on refridgerator at home, will complete a new form tomorrow) Antibiotics: Use ABX if can Prolong Life Artificially Admin Nutrition: No Artifical Nutrition by Tube POLST Discussed with: Patient POLST Review Outcome: No Change (new form will be completed before DC.) . Advanced Care Planning Address: POLST Pain: Mild Symptom management: Dyspnea (with cough), Pain Pt History History of Present Illness From the H&P of Susan Loving D.O. "Mr. Guillermo Ramey is a pleasant 75 year old gentleman with reported history of COPD, combined systolic and diastolic congestive heart failure, atrial fibrillation, HTN, CKDIV, and recent infection resulting in pneumonia, that presented to [facility] via EMS from [facility] after he experienced a syncopal event that resulted in a head laceration. He was admitted for evaluation and treatment of GLF, in addition to acute respiratory failure likely secondary to suspected acute exacerbation of COPD, acute exacerbation CHF , and possible ongoing PNA. Mr. Ramey is a current resident of [facility], and states that he cannot recall any inciting factors for his fall, and does not recall the events leading to it. He recalls reaching out, and waking up what he believed to be just a few moments later. He fell backward, striking the posterior aspect of his head onto the floor. Daughter is present at bedside. He states that he was recently admitted at [facility] in [place] for infection, and that is how he ended up at [facility], for rehabilitation. He believes it was from his foot wound, as this is the first he has heard of pneumonia. He was last seen 02/[address] Chandra at [facility]. He states other than the fall, he has been feeling well. Admits to poor outpatient compliance with follow up. Admits to chills, shortness of breath, increased cough with intermittent production Denies nausea, vomiting, fevers, severe PAN, acute vision changes In the ED, T36.5, P79, BP 146/64, 94% NC2L; WBC 6.7, Hb 10.1, Hct 33.0; Troponin 0.142, Cr 1.81; Given Lasix 60mg IV x1, vancomycin, zosyn, levaquin. 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 Patient was transferred to [facility] in stable condition." Hospital Course: Patient was initially treated in the [facility] ED for a head laceration sustained after ground level fall with CT brain which showed no acute intracranial abnormality followed by tawana to close the laceration. The patient was then found to have HCAP and started on antibiotic therapy with 3 days of IV Zosyn and Vancomycin transitioned to oral doxycycline BID. For the patients concomitant COPD he was started on breathing treatments consisting of Duonebs, Accunebs, Budesonide as well as oral prednisone. Next the patient suffered Acute kidney injury on CKD stage IV, present on admission and worsened after receiving contrast for CT angio, where nephrology was consulted but did not recommend dialysis. The patient appears to have stabilized and social work has found placement at [facility] in [place]. Palliative care was consulted to discuss goals of care given the significant comorbidities this patient faces as well as recurrent hospitalizations. Past Medical History Significant PMH Noted: PMH: CHF, systolic and diastolic Ischemic cardiomyopathy COPD Atrial fibrillation CKDIII Pre-diabetes mellitus Hypothyroidism Bladder cancer s/p TURP Basal cell CA Chronic back pain Chronic cor pulmonale Depression GERD CVA Hyperlipidemia Shingles PVD PSH: BCG instillations for bladder cancer Left AV fistula CABG x2 vessel Cardioversion for AF Hemilaminotomy L5-S1 Left common femoral endarterectomy Microdiscectomy L5-S1 Balloon angioplasty, + stent x2 Left external iliac stent R pulmonary nodule thoracotomy Social History Occupation: Retired Social Support: Angelika Kendall Living Situation: Was at [facility] [place], has been approved for [facility]. Allergy Allergies Reviewed: Yes Medications Current Medications: Current Medications Prednisone 40 mg DAILYWM PO Last administered on 03/06/16 08:06; Admin Dose 40 MG; Start 03/05/16 at 08:00; Stop 03/09/16 at 08:01 Doxycycline Hyclate 100 mg BID PO Last administered on 03/06/16 08:09; Admin Dose 100 MG; Start 03/05/16 at 17:00 Acetaminophen 650 mg Q6H PRN PO Last administered on 03/05/16 17:25; Admin Dose 650 MG; Start 03/05/16 at 16:50 Guaifenesin/ Codeine Phosphate 10 ml Q4H PRN PO Last administered on 03/06/16 11:43; Admin Dose 10 ML; Start 03/06/16 at 10:45 Bumetanide 1 mg BID PO Last administered on 03/06/16 12:13; Admin Dose 1 MG; Start 03/06/16 at 11:40 Scheduled Aspirin (Aspirin) 325 Mg Tablet 325 MG PO DAILY Atorvastatin (Lipitor) 20 Mg Tablet 20 MG PO HS Calcitonin,[place],Synthetic (Calcitonin-[place]) 3.7 Ml [place].pump 1 SPRAY NS DAILY Each nares alternating sides Carvedilol (Carvedilol) 6.25 Mg Tablet 6.25 MG PO BID Clopidogrel Bisulfate (Plavix) 75 Mg Tablet 75 MG PO DAILY Ferrous Sulfate (Iron) 325 Mg Capsule.er 325 MG PO DAILY Finasteride (Finasteride) 5 Mg Tablet 5 MG PO HS Gabapentin (Gabapentin) 300 Mg Capsule 600 MG PO HS Isosorbide MN ER (Isosorbide MN ER) 30 Mg Tab.er.24h 30 MG PO BID L.acidoph & Paracasei,B.lactis (Probiotic) 10 Billion Cell Capsule 1 CAPSULE PO DAILY Levothyroxine (Levothyroxine) 125 Mcg Tablet 125 MCG PO DAILY Multivitamin (Multi Vitamin Daily) 1 Each Tablet 1 TABLET PO DAILY Nicotine 21 mg/24 hr Patch (Nicotine 21 mg/24 hr Patch) 1 Each Patch.dysq 1 PATCH TRANSDERM DAILY Potassium Chloride ER (Potassium Chloride ER) 20 Meq Tablet.er 40 MEQ PO DAILY TAKE WITH FOOD Prednisolone (Prednisolone) 15 Mg/5 Ml Solution 40 MG PO DAILY Prednisone (Deltasone) 20 Mg Tablet 20 MG PO DAILY Salmeterol Xinafoate (Serevent Diskus) 50 Mcg/Puff Inhaler 1 PUFF IH BID Tamsulosin (Flomax) 0.4 Mg Capsule 0.8 MG PO HS Tiotropium [place] (Spiriva) 18 Mcg Cap.w.dev 18 MCG IH DAILY Rinse mouth after use Torsemide (Torsemide) 20 Mg Tablet 60 MG PO Every other day Alternating with Torsemide 80 mg Torsemide (Torsemide) 20 Mg Tablet 80 MG PO Every other day Alternating with Torsemide 60 mg Scheduled PRN Acetaminophen (Acetaminophen) 325 Mg Tablet 650 MG PO Q4H PRN PRN Pain and fever Albuterol HFA (Proair HFA) 8.5 Gm Hfa.aer.ad 2 PUFFS INHALATION Q4H PRN PRN For Shortness of Breath Guaifenesin (Guaifenesin ER) 600 Mg Tab.er.12h 600 MG PO Q6H PRN PRN For Congestion Hydrocodone-Acetaminophen 5-325 mg (Hydrocodone-Acetaminophen 5-325 mg) 1 Each Tablet 1 TABLET PO Q4H PRN PRN For Pain Polyethylene Glycol 3350 (Miralax) 17 Gm Powd.pack 17 GM PO DAILY PRN PRN For Constipation Objective Findings Exam Vital Sign - Last Date Time Temp Pulse Resp B/P Pulse Ox O2 Delivery O2 Flow Rate FiO2 03/06/16 15:22 72 16 94 Nasal Cannula 2.00 03/06/16 13:11 37.0 118/73 Intake and Output 03/05/16 03/05/16 03/06/16 Cumulative From/Thru 15:00 23:00 07:00 03/02/16 08:13 - 03/06/16 06:14 Intake Total 1001 ml 400 ml 6267 ml Output Total 1000 ml 550 ml 7222 ml Balance 1 ml -150 ml -955 ml Intake Oral 845 ml 400 ml 4416 ml IV Total 156 ml 1851 ml Output Urine Total 1000 ml 550 ml 7222 ml # Bowel Movements 1 2 General: Alert, Oriented, Mild distress (due to pain from cough) Lungs: Other (course weak cough) Neuro: Speech (with some mild conversational dyspnea) Addtional Information A significant amount of time was spent with the patient and daughter via phone discussing the patient's prognosis as well as goals of care. Lab/Diagnostics Lab and Imaging results reviewed in detail in EMR. Time spent Total time [90] minutes; >75% face to face with patient and/or family, providing counselling regarding plans and recommendations, and in care coordination with his/her medical teams. Of this 45 minutes was spent counseling for advanced care planning with the patient/the patients family/the surrogate decision maker. Attending Statement The patient was seen and examined together with Dr. Suhail Patterson on March 06, 2016 and I have added additional information to the note above. copies to: Gabriel Chandra NICHOLAS K DO Mar 06, 2016 16:35 Vee Salguero Mar 06, 2016 17:34
[2016-03-07] VITALS (11 sets, daily range): BP systolic 112–149; BP diastolic 45–75; PULSE 70–83; RESP 18–19; O2SAT 93–96
[2016-03-07] MEDS: Codeine-guaiFENesin 10 mL Syrup PO PRN ×3 (00:50→15:40)
--- NOTE | 2016-03-07 06:46 | NUR ---
Cuff Runner Pt slept for periods during the night. Reported 2/10 pain earlier in the shift from coughing but was relieved after administering codine with guaifenesin, 2 doses given. Cooperative with all care and instruction. Upon assessment, pt had a slightly distended and hardened belly. Reports that it has been like that for the past year. Will pass on to day shift to inquire more with the MD.
[2016-03-07 06:55] LABS: Phosphorus 5.6 mg/dL (2.5-4.9)
[2016-03-07] MEDS: Budesonide 0.5 mg/2 mL Inhalation Solution NEB SCH ×2 (07:09→20:00)
[2016-03-07] MEDS: Albuterol-Ipratropium 3 mL Inhalation Solution NEB SCH ×4 (07:09→20:00)
[2016-03-07] MEDS: Insulin LISPRO 300 Unit/3 mL Inj SUBQ SCH ×4 (07:48→22:14)
[2016-03-07] MEDS: Isosorbide Mononitrate 30 mg ER24 Tablet PO SCH ×3 (08:13→21:59)
[2016-03-07] MEDS: predniSONE 20 mg Tablet PO SCH (08:13)
[2016-03-07] MEDS: Heparin 5,000 Unit/mL Inj SUBQ SCH ×2 (08:14→22:42)
[2016-03-07] MEDS: Polyethylene Glycol (PEG) 17 Gm Powder PO SCH (08:17)
[2016-03-07] MEDS: HYDROcodone-APAP 5-325 mg Tablet PO PRN (11:33)
--- NOTE | 2016-03-07 11:54 | PCM.PNMED ---
Subjective Date of Service Mar 07, 2016 Subjective "Narinder" had a meeting with palliative care yesterday and will be having a family meeting today and updating his POLST to be more specific about which limited interventions he desires. He reports that his cough is a bit better than yesterday. Denies any dyspnea this morning. Exam Vital Signs Vital Sign - Last Date Time Temp Pulse Resp B/P Pulse Ox O2 Delivery O2 Flow Rate FiO2 03/07/16 10:13 Supplement Oxygen 03/07/16 08:24 36.8 83 18 130/75 96 1.00 Intake and Output 03/06/16 03/06/16 03/07/16 Cumulative From/Thru 15:00 23:00 07:00 03/02/16 08:13 - 03/07/16 04:59 Intake Total 586 ml 6853 ml Output Total 600 ml 7822 ml Balance -14 ml -969 ml Intake Oral 586 ml 5002 ml IV Total 1851 ml Output Urine Total 600 ml 7822 ml # Bowel Movements 1 3 Exam General: Chronically ill appearing male resting in bed with the head of the bed elevated to 45degrees, kyphotic. Saturating at 92% on room air. HEENT: Posterior scalp laceration with tawana in place, no erythema or drainage , there is dried blood along the wound edges which are well approximated. PERRLA , sclera anicteric. Cardiac: Irregularly irregular. Holosystolic murmur best heard at the left upper sternal border is present Respiratory: Poor inspiratory effort. Subtle bibasilar crackles present. No gasping or tripoding. No accessory muscle use Extremities: 1+ edema up to mid thigh. The right 4th distal toe is wrapped in a clean and dry dressing. Feet are cold, but pink. There is fine scaling present on both lower legs consistent with chronic stasis. Left dorsal lateral foot ulceration under wrap dressing which is clean, dry, and intact. : Guajardo catheter in place draining yellow, translucent urine IVs and Medications Medications Reviewed: Medications were reviewed in detail Lab and Diagnostics Result Diagram: 03/06/16 0745 03/07/16 0600 X-Rays, CTs and MRIs CT angio chest 03/03/16: FINDINGS: Image quality: Excellent. Pulmonary arteries: Pulmonary arteries demonstrate no intraluminal filling defects to suggest central pulmonary embolism. The main pulmonary artery is enlarged up to 3.4 cm diameter. Lungs and pleura: Patchy bilateral posterior upper lobe opacities are present, superimposed on a background of apical predominant emphysema. Small bilateral pleural effusions are present, as well as bilateral pleural calcifications. Central and peripheral airways are patent. Mediastinum: There is mild cardiomegaly, with enlargement of both atria. No pericardial effusion. No mediastinal or hilar adenopathy. Thoracic aorta is normal in caliber and enhancement. Esophagus is normal in caliber, with a small hiatal hernia. Bones and chest wall: No suspicious bony lesions. Minimal T4, minimal T5, moderate T6, mild T8, moderate T9, mild T11, and moderate T12 vertebral body compression fractures are present. Sagittal reformatted images demonstrate cortical discontinuity to the anterior T12 vertebral body. Thyroid gland is normal in size but incompletely visualized. No axillary or supraclavicular adenopathy. Abdomen: There is reflux of contrast into patent hepatic veins. Liver capsule demonstrates nodular contour, indicating cirrhosis. There is perihepatic and perisplenic ascites. 3.2 cm medial right renal cortical simple cyst is present. IMPRESSION: 1. No evidence for central pulmonary embolism. Enlarged main pulmonary artery would be consistent with pulmonary arterial hypertension. 2. Significant reflux of intravenous contrast into patent hepatic veins would be consistent with congestive right heart failure. Disproportionately enlarged right and left atria would suggest tricuspid and mitral valve stenoses. 3. Findings suggestive of bilateral posterior upper lobe bronchopneumonia, on a background of emphysema. 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 4. Cirrhotic liver, along with small perihepatic and perisplenic ascites. 5. Multiple nonacute mid and lower thoracic spine compression fractures as described above, as well as acute moderate T12 anterior wedge compression fracture. 6. Small retrocardiac hiatal hernia. Dictated by: Deng Steinberg M.D. on 03/03/2016 at 20:56 Assessment & Plan Guillermo is a 75yo male with reported history of COPD, congestive heart failure, atrial fibrillation, and recent hospitalization at [facility] in [place] for CHF and COPD, who presented to [facility] via EMS from [facility] after he experienced an unwitnessed ground level fall with resultant posterior scalp laceration. Found to have bilateral upper lobe pneumonia and left sided pleural effusion. Hospital day # 5 1. Acute kidney injury on CKD stage IV, improved - Contrast nephropathy worsening his renal function - On admit: Cr 1.81, increased up to Cr 2.33 with eGFR of 26 and has improved to Cr 2.26 this morning - Diuretics held on 03/05/15, Bumex started by nephrology on 03/06/15 - He has a left sided fistula already placed in preparation for dialysis, if needed which has never been utilized. He has verbally expressed to the palliative team pb he would like to do dialysis if needed. - Nephrology has assisted with his care - Will need a BMP 1 week after discharge to evaluate his renal function 2. Acute exacerbation COPD, present on admission. Improving - Evidence of emphysema on CT chest and known hx of asbestos exposure - Hx of chronic steroid use - Continue Duonebs QIDWA and Accunebs q2h prn - Budesonide BID - Titrate down the prednisone dosing starting tomorrow morning 3. Health care acquired pneumonia, improving - Recent hospitalization for COPD exacerbation, CHF and pneumonia, was treated with Azithromycin and Ceftriaxone on 02/07/16 - Resp PCR negative and blood cultures without bacterial growth - Suspect his dyspnea is due, at least in part, to the pneumonia - Antibiotic therapy with oral doxycycline BID, day 3. Received 3 days of IV Zosyn and Vancomycin. 4. Acute exacerbation of CHF, evidence of right sided heart failure on echocardiogram - Cor pulmonale component - Continues to have pedal edema, unchanged - Diuretic therapy guided by nephrology - Daily fluid status evaluation 5. Acute respiratory failure, present on admission, improved - Not requiring supplemental oxygen to maintain 88-92% O2 saturation - Suspect acute on chronic - Due to a combination of pneumonia, COPD and CHF - Will have a home oxygen evaluation on the date of discharge 6. Head laceration secondary to GLF, acute, present on admission. Healing - Wound is well appearing - CT brain without acute intracranial abnormality - Stapled in Emergency department, will need staple removal early this next week - Wound care to follow 7. Ground level fall, acute, unclear if this is a recurrent issue for him or if this was an unwitnessed syncopal episode - Etiology not entirely clear - PT to continue to work with the patient 8. Chronic left foot ulceration with myonecrosis, present on admission. - Wound care consulting 9. Bladder cancer, chronic. Presumed stable - Reportedly, he received BCG instillations and transurethral resection of of bladder tumor for past treatment - Currently having urinary retention for which a Guajardo catheter was placed 10. Elevated troponin undetermined significance, chronicity unknown - On admit: 0.142, increased to 0.163 then decreased to 0.13 - Suspect this is secondary to CKD 11. Hypothyroidism, chronic. Presumed stable - Continued levothyroxine at reported dose - Acetaminophen PRN: Fever/antiemetic/bowel/pain - DIET: Heart healthy/CC Disposition: Will likely discharge to SNF tomorrow. He has had 3 hospitalizations in the past 3 months for his COPD and CHF. Palliative to discuss with the patient and his daughter in a family meeting this afternoon. VTE Prophylaxis: Sub-Q Heparin (Unfractionated), Other (initially held due to bleeding scalp wound, started subcutaneous heparin on 03/04/16) VTE Mechanical Devices: Venous Foot Pump Resuscitation Status: Limited Interventions Attending Statement The patient was seen and examined together with Dr. Mathias on 03/07/2016 and I agree with the history, exam and plan as outlined in the note above. Adriane Mathias DO Mar 07, 2016 10:53 Ranjit Calderon MD Mar 08, 2016 10:23
--- NOTE | 2016-03-07 11:56 | NUR ---
rib pain pt complains of rib pain in the URQ of the chest. cough syrup given for relief (same intervention the previous night), palliative care doc in the room asks that I give a hydrocodone as well. pt still in meeting with palliative care, this RN will re-assess after meeting
--- NOTE | 2016-03-07 12:09 | NUR ---
Social Work: Readiness for d/c Data: Pt is on day 5 of hospitalization. EMR reviewed. PUBLISHER ASSISTANT spoke with Palliative team on 03/06 who stated [facility] but pt will be discharging to [facility] in [facility]. PUBLISHER ASSISTANT called [facility] and told them to take pt off of their list. PUBLISHER ASSISTANT spoke again with Palliative on 03/07 and they state that once looked into further pt's goals are not hospice goals and pt and family do not want hospice at this time. stated in rounds pt likely to d/c tomorrow. PUBLISHER ASSISTANT will continue to follow. Assessment: Pt from SNF. Plan: Pt will d/c to [facility] at d/c, likely tomorrow. PUBLISHER ASSISTANT will continue to follow. SANCHEZ Montgomery
--- NOTE | 2016-03-07 13:28 | PCM.PNMED ---
Subjective Date of Service Mar 07, 2016 Subjective evaluated by palliative care. overall stable, no acute issue overnight. Exam Vital Signs Vital Sign - Last Date Time Temp Pulse Resp B/P Pulse Ox O2 Delivery O2 Flow Rate FiO2 03/07/16 11:23 81 18 95 Nasal Cannula 2.00 03/07/16 08:24 36.8 130/75 Intake and Output 03/06/16 03/06/16 03/07/16 Cumulative From/Thru 15:00 23:00 07:00 03/02/16 08:13 - 03/07/16 04:59 Intake Total 586 ml 6853 ml Output Total 600 ml 7822 ml Balance -14 ml -969 ml Intake Oral 586 ml 5002 ml IV Total 1851 ml Output Urine Total 600 ml 7822 ml # Bowel Movements 1 3 Exam PHYSICAL EXAMINATION: General appearance: Chronically ill looking, in no acute distress. HEENT: Positive for temporal muscle wasting. Dry mucous membranes. Mild pallor. No jaundice. No JVD. No lymphadenopathy. No thyroid enlargement. Heart: Irregular rhythm. Normal S1, S2. Systolic murmur noted. Respiratory: coarse crackles. Expiratory wheezing noted. Abdomen soft, active bowel sounds. No hepatosplenomegaly. Extremities: 1+ edema with poor dorsalis pedis. Positive chronic skin changes on the lower extremity. Lab and Diagnostics Result Diagram: 03/06/16 0745 03/07/16 0600 X-Rays, CTs and MRIs CT angio chest 03/03/16: FINDINGS: Image quality: Excellent. Pulmonary arteries: Pulmonary arteries demonstrate no intraluminal filling defects to suggest central pulmonary embolism. The main pulmonary artery is enlarged up to 3.4 cm diameter. Lungs and pleura: Patchy bilateral posterior upper lobe opacities are present, superimposed on a background of apical predominant emphysema. Small bilateral pleural effusions are present, as well as bilateral pleural calcifications. Central and peripheral airways are patent. Mediastinum: There is mild cardiomegaly, with enlargement of both atria. No pericardial effusion. No mediastinal or hilar adenopathy. Thoracic aorta is normal in caliber and enhancement. Esophagus is normal in caliber, with a small hiatal hernia. Bones and chest wall: No suspicious bony lesions. Minimal T4, minimal T5, moderate T6, mild T8, moderate T9, mild T11, and moderate T12 vertebral body compression fractures are present. Sagittal reformatted images demonstrate cortical discontinuity to the anterior T12 vertebral body. Thyroid gland is normal in size but incompletely visualized. No axillary or supraclavicular adenopathy. Abdomen: There is reflux of contrast into patent hepatic veins. Liver capsule demonstrates nodular contour, indicating cirrhosis. There is perihepatic and perisplenic ascites. 3.2 cm medial right renal cortical simple cyst is present. IMPRESSION: 1. No evidence for central pulmonary embolism. Enlarged main pulmonary artery would be consistent with pulmonary arterial hypertension. 2. Significant reflux of intravenous contrast into patent hepatic veins would be consistent with congestive right heart failure. Disproportionately enlarged right and left atria would suggest tricuspid and mitral valve stenoses. 3. Findings suggestive of bilateral posterior upper lobe bronchopneumonia, on a background of emphysema. 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 4. Cirrhotic liver, along with small perihepatic and perisplenic ascites. 5. Multiple nonacute mid and lower thoracic spine compression fractures as described above, as well as acute moderate T12 anterior wedge compression fracture. 6. Small retrocardiac hiatal hernia. Dictated by: Deng Steinberg M.D. on 03/03/2016 at 20:56 Assessment & Plan 1. MARITZA on CKD-4 - secondary to MATTHEW, improving slowly. 2. Right sided heart failure. 3. COPD exacerbation. 4. Health-care assoc PNA. 5. Bladder cancer, now with urinary retention. Plan: - d/c lizarraga cath, check PVR. - continue bumex 1 mg BID. - can be d/c'd, repeat BMP in 1 week. VTE Prophylaxis: Sub-Q Heparin (Unfractionated), Other (initially held due to bleeding scalp wound, started subcutaneous heparin on 03/04/16) VTE Mechanical Devices: Venous Foot Pump Resuscitation Status: Limited Interventions Abby Villalpando MD Mar 07, 2016 13:28
--- NOTE | 2016-03-07 13:59 | NUR ---
room air/pulse ox pt has been resting in his room on room air for 2+ hours, pulse ox 91-94% at rest. pt states that he is not SOB
--- NOTE | 2016-03-07 16:33 | PCM.PALLBR ---
Palliative Care Recommendation Mr. Guillermo Ramey is a pleasant 75 year old gentleman with reported history of COPD, combined systolic and diastolic congestive heart failure, atrial fibrillation, HTN, CKDIV, and recent infection resulting in pneumonia, that presented to [facility] via EMS from [facility] after he experienced a syncopal event that resulted in a head laceration. He was admitted for evaluation and treatment of GLF, in addition to acute respiratory failure likely secondary to suspected acute exacerbation of COPD, acute exacerbation CHF , and possible ongoing PNA. Summary of palliative recommendations: Palliative plan: [facility] and patient DOES qualify for Hospice. The palliative team met with patient while speaking via phone call to daughter Faiza at 11:00 today (03/07/2015) where we discussed Dorene's new POLST. -Symptom management (Pain/other): Addressed by [facility] medicine team. Pain: improved with hydrocodone/apap Cough/dyspnea: Improved with routine dosing of Robitussin with Codeine. -DPOA/Advanced Directives/POLST - DPOA - unknown at this time likely Angelika or Daughter Faiza, will confirm tomorrow (03/07/2016) - POLST - completed new form 03/07/2016 - Code Status is DNR/DNI on POLST and in EMR -Family Care Team Meeting (FCTM): Present were Palliative Team Vee VERA, Suhail Bhagat D.O. as well as patient Guillermo Ramey (Bob) and via phone daughter Faiza. The palliative team's goal for the meeting was to discuss a new POLST which was then discussed line for line with Dorene, and Faiza via phone. Vee proceeded to explain DNR versus CPR, DORENE agreed he understood the difference and emphatically stated he wanted to "not be beat up" and chose to be DNR. Vee then explained the difference between interventions including Full treatment v Limited intervention v comfort care. Dorene agreed that he understood the difference and however he was initially unsure of his choice, he knew he did not want "a tube down his throat". His daughter Faiza explained that Dorene would be able to handle a trial of BiPAP/CPAP as well as dialysis, and the use of BiPAP and dialysis was explained to Dorene thoroughly, even stating that he would likely need one or the other given his poor lung and renal function. Dorene asked how long people normally stay on BiPAP and the palliative team stated that is could be several days depending on how sick the person being treated was. Dorene stated he understood and limited innervation was chosen specifically ok for the use of BiPAP/CPAP and dialysis. Vee then pointed out that we were currently treating him with antibiotics so the obvious choice was to april yes to use of antibiotics if life could be prolonged and Dorene agreed. Lastly Vee discussed the need for parental or tube feeding, and Dorene agreed to the use of supplemental nutrition is the condition was reversible if however the disease causing his hospitalization was end stage and irreversible he would ask for no tube feeds or parental nutrition be given. The document was then signed and dated by both Vee and Dorene. Vee ended the meeting by asking if the patient or family had any more questions. The family thanks Vee and the palliative team for all there help and the meeting concluded. -Spiritual support Patient Goals: 1. To get well and get out of the hospital. 2. To get closer to his family in [place]. 3. To try and take more control of his health--he asks that we confirm that he is on a diabetic diet. 4. Take care of affairs at home through proxy. Additional Medical Diagnoses with primary management by Hospitalist team include : CHF, COPD, Cor Pulmonale, CKD stage 4, diabetes Problems: End of Life Preferences 1. Patient is currently DNR/DNI in accordance with his wishes and is marked as such on his new POLST as well as in the EMR. Goals of Care 1. To get well and get out of the hospital. 2. To get closer to his family in [place]. 3. To try and take more control of his health by starting a diabetic diet. 4. Take care of affairs at home through proxy. Disposition Discharge to rehab facility [facility] in [place], [place] in the next several days. Resuscitation Status Resuscitation Status: DNR/DNI:Do Not Resuscitate/Intubate Limited Interventions: BiPAP, Medications and IV Fluid POLST Updates/Changes Previous POLST?: Yes (currently on refridgerator at home, will complete a new form tomorrow) POLST Last Review Date: Mar 07, 2016 Antibiotics: Use ABX if can Prolong Life Artificially Admin Nutrition: Trial Period Tube Feeding (only for reversible conditions, no longer than 1-2 weeks, not for extending EOL) POLST Discussed with: Patient, Health Care Agent (DPOAHC) (daughter Faiza) POLST Review Outcome: New Form Completed (03/07/2016) . Advanced Care Planning Address: POLST Pain: Mild Symptom management: Dyspnea (painful cough), Pain Total time [75 ] minutes; >90% face to face with patient and/or family, providing counselling regarding plans and recommendations, and in care coordination with his/her medical teams. Of this 45 minutes was spent counseling for advanced care planning with the patient/the patients family/the surrogate decision maker. Attending Statement The patient was seen and examined together with Dr. Suhail Bhagat on March 07, 2016 and I have added additional information to the note above. copies to: Abby Villalpando MD; Gabriel Chandra DO Palliative Brief Note Date of Service Mar 07, 2016 . The palliative team's goal for today's meeting was to discuss a new POLST which was then discussed line for line with Brenna Barcenas via phone. The patient chose to be DNR/DNI with limited interventions including BiPAP and dialysis with yes to use of antibiotics if life could be prolonged and lastly ok for the use of supplemental nutrition through tube feeding or parenteral nutrition if the patient's condition was reversible if however the disease causing his hospitalization was end stage and irreversible he would ask for no tube feeds or parental nutrition be given. Dorene also added a statement to the POLST indicating that he would allow his daughter to change the options for his care toward more comfort-oriented choices if he worsened and was facing end of life decline. The document was then signed and dated by both Vee SÁNCHEZ and Dorene, and all further questions were answered. The new POLST has been placed in the chart to be sent with the patient to [facility]. SUHAIL BHAGAT DO Mar 07, 2016 16:33 Vee Salguero Mar 20, 2016 08:30
--- NOTE | 2016-03-07 17:50 | NUR ---
Wound Care Pt seen at bedside for wound care of left dorsal foot wound. Wound cleaned with saline and debrided with gauze mechanically. Measures 4 cm 3 cm x 0.2 cm, drainage minimal, wound bed combination fibrin and granulation tissue. Redressed with hydrogel, Vaseline gauze, foam dressing and kerlix wrap. Stable wound without sign of infection, slowly granulating, no osseous structures or tendon visible at this time. Recommend dressing changes q 48 hrs by nursing. Will recheck on this patient 03/10/16.
--- NOTE | 2016-03-07 23:02 | NUR ---
Med refusal Pt refused all PO medications, stated that he didn't want them. Asked x3 with same response. Pt was alert and oriented. Accepted Insulin for high blood sugar and heparin injection. Will monitor BP and HR.
[2016-03-08] VITALS (7 sets, daily range): BP systolic 122–136; BP diastolic 72–79; PULSE 68–76; RESP 18–20; O2SAT 95–100
[2016-03-08] MEDS: HYDROcodone-APAP 5-325 mg Tablet PO PRN ×2 (00:40→14:14)
[2016-03-08] MEDS: Codeine-guaiFENesin 10 mL Syrup PO PRN (00:52)
[2016-03-08 07:20] LABS: BASOPHILS % (AUTO) 0 % (0-3); EOSINOPHILS % (AUTO) 0.8 % (0-5); MONOCYTES % (AUTO) 13.9 % (4-12); Mean Corpuscular Hemoglobin 29.9 pg (27.0-35.0); Mean Corpuscular Volume 98.1 fL (81-100); NEUTROPHILS % (AUTO) 74.3 % (40-74); Platelet Count 131 bil/L (150-400)
[2016-03-08] MEDS: Insulin LISPRO 300 Unit/3 mL Inj SUBQ SCH ×4 (08:00→20:48)
[2016-03-08] MEDS: Budesonide 0.5 mg/2 mL Inhalation Solution NEB SCH ×2 (08:01→19:59)
[2016-03-08] MEDS: Albuterol-Ipratropium 3 mL Inhalation Solution NEB SCH ×4 (08:01→19:59)
[2016-03-08] MEDS: predniSONE 20 mg Tablet PO SCH (08:13)
[2016-03-08] MEDS: Isosorbide Mononitrate 30 mg ER24 Tablet PO SCH ×2 (08:14→20:47)
[2016-03-08] MEDS: Polyethylene Glycol (PEG) 17 Gm Powder PO SCH (08:16)
[2016-03-08] MEDS: Heparin 5,000 Unit/mL Inj SUBQ SCH ×2 (08:21→20:47)
[2016-03-08] MEDS ORDERED: Potassium Chloride 20 mEq SR Tablet PO ONE (10:45)
--- NOTE | 2016-03-08 11:09 | NUR ---
[facility] signed with daughter Faiza via phone. SANCHEZ Casillas
--- NOTE | 2016-03-08 14:45 | NUR ---
head pain pt complains of head pain Vian given pt sleeping in bed
--- NOTE | 2016-03-08 15:55 | DRSVH ---
PROCEDURE: US DUPLEX DOPPLER UNILATERAL LEG ARTERIES, RIGHT INDICATIONS: new onset cyanosis right 5th and 2nd toes TECHNIQUE: Color and pulse Doppler interrogation was performed of the right lower extremity arterial system, wit h image documentation. COMPARISON: None. FINDINGS: Common femoral artery: 105 cm/sec, with triphasic flow. Deep femoral artery: 30 cm/sec, with biphasic flow. Proximal superficial femoral artery: 103 cm/sec, with triphasic flow. Mid superficial femoral artery: 89 cm/sec, with biphasic flow. Distal superficial femoral artery: 130 cm/sec, with biphasic flow. Popliteal artery: 43 cm/sec, with triphasic flow. Posterior tibial artery: 27 cm/sec, with biphasic flow. Anterior tibial artery/dorsalis pedis: 32/24 cm/sec, with biphasic flow. Villeda-scale imaging description: There is atherosclerotic plaque throughout the right lower extremity arteries. IMPRESSION: 1. Mildly increased velocities reaching the right mid and distal superficial femoral artery suggesti ve of a mild stenosis of less than 50%. 2. Decreased velocities between the distal superficial femoral artery and popliteal artery with pres erved triphasic waveforms suggesting mild multifocal narrowing. 3. No definite focal high-grade stenosis. Dictated by: David Workman M.D. on 03/08/2016 at 15:53 Approved by: David Workman M.D. on 03/08/2016 at 15:53
--- NOTE | 2016-03-08 16:22 | PCM.PNMED ---
Subjective Date of Service Mar 08, 2016 Subjective "Narinder" denies any problems this morning and reports that he is looking forward to going home. Exam Vital Signs Vital Sign - Last Date Time Temp Pulse Resp B/P Pulse Ox O2 Delivery O2 Flow Rate FiO2 03/08/16 12:52 36.8 68 20 122/72 95 Nasal Cannula 2.00 Intake and Output 03/07/16 03/07/16 03/08/16 Cumulative From/Thru 15:00 23:00 07:00 03/02/16 08:13 - 03/08/16 05:24 Intake Total 400 ml 672 ml 300 ml 8225 ml Output Total 1025 ml 650 ml 550 ml 67505 ml Balance -625 ml 22 ml -250 ml -1822 ml Intake Oral 400 ml 672 ml 300 ml 6374 ml IV Total 1851 ml Output Urine Total 1025 ml 650 ml 550 ml 71832 ml # Bowel Movements 0 3 Exam General: Chronically ill appearing male resting in bed with the head of the bed elevated to 45degrees, kyphotic. Saturating at 92% on room air. HEENT: Posterior scalp laceration with tawana in place, no erythema or drainage , there is dried blood along the wound edges which are well approximated. PERRLA , sclera anicteric. Cardiac: Irregularly irregular. Holosystolic murmur best heard at the left upper sternal border is present Respiratory: Poor inspiratory effort, no wheezes, rales, or rhonchi present. No gasping or tripoding. No accessory muscle use Extremities: 1+ edema up to mid thigh bilaterally. The right 4th distal toe is wrapped in a clean and dry dressing. Left foot is cool, the right foot is cold. Capillary refill on the right foot 4seconds, left foot is 2 seconds. Cyanosis of the right 5th toe through the forefoot on the plantar surface. Right 2nd toe cyanotic on the plantar and distal surfaces without extension onto the foot. There is fine scaling present on both lower legs consistent with chronic stasis. Left dorsal lateral foot ulceration under wrap dressing which is clean, dry, and intact. : Guajardo catheter in place draining yellow, translucent urine Lab and Diagnostics Result Diagram: 03/08/16 0642 03/08/16 0642 X-Rays, CTs and MRIs CT angio chest 03/03/16: FINDINGS: Image quality: Excellent. Pulmonary arteries: Pulmonary arteries demonstrate no intraluminal filling defects to suggest central pulmonary embolism. The main pulmonary artery is enlarged up to 3.4 cm diameter. Lungs and pleura: Patchy bilateral posterior upper lobe opacities are present, superimposed on a background of apical predominant emphysema. Small bilateral pleural effusions are present, as well as bilateral pleural calcifications. Central and peripheral airways are patent. Mediastinum: There is mild cardiomegaly, with enlargement of both atria. No pericardial effusion. No mediastinal or hilar adenopathy. Thoracic aorta is normal in caliber and enhancement. Esophagus is normal in caliber, with a small hiatal hernia. Bones and chest wall: No suspicious bony lesions. Minimal T4, minimal T5, moderate T6, mild T8, moderate T9, mild T11, and moderate T12 vertebral body compression fractures are present. Sagittal reformatted images demonstrate cortical discontinuity to the anterior T12 vertebral body. Thyroid gland is normal in size but incompletely visualized. No axillary or supraclavicular adenopathy. Abdomen: There is reflux of contrast into patent hepatic veins. Liver capsule demonstrates nodular contour, indicating cirrhosis. There is perihepatic and perisplenic ascites. 3.2 cm medial right renal cortical simple cyst is present. IMPRESSION: 1. No evidence for central pulmonary embolism. Enlarged main pulmonary artery would be consistent with pulmonary arterial hypertension. 2. Significant reflux of intravenous contrast into patent hepatic veins would be consistent with congestive right heart failure. Disproportionately enlarged right and left atria would suggest tricuspid and mitral valve stenoses. 3. Findings suggestive of bilateral posterior upper lobe bronchopneumonia, on a background of emphysema. 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 4. Cirrhotic liver, along with small perihepatic and perisplenic ascites. 5. Multiple nonacute mid and lower thoracic spine compression fractures as described above, as well as acute moderate T12 anterior wedge compression fracture. 6. Small retrocardiac hiatal hernia. Dictated by: Deng Steinberg M.D. on 03/03/2016 at 20:56 Assessment & Plan Guillermo is a 75yo male with reported history of COPD, congestive heart failure, atrial fibrillation, and recent hospitalization at [facility] in [place] for CHF and COPD, who presented to [facility] via EMS from [facility] after he experienced an unwitnessed ground level fall with resultant posterior scalp laceration. Found to have bilateral upper lobe pneumonia and left sided pleural effusion. Hospital day # 6 1. Acute kidney injury on CKD stage IV, improved and stable - Contrast nephropathy worsened his renal function - On admit: Cr 1.81, increased up to Cr 2.33 with eGFR of 26 and has improved to Cr 2.26 which it has remained at for 2 days now - Diuretics held on 03/05/15, Bumex started by nephrology on 03/06/15 with stabilization of his creatinine and pedal edema - He has a left sided fistula already placed in preparation for dialysis, if needed which has never been utilized. He has verbally expressed to the palliative team that he would like to do dialysis if needed. - Nephrology has assisted with his care, he will follow up as an outpatient with his route contractor in [place] post discharge. - Will need a BMP 1 week after discharge to evaluate his renal function 2. Acute exacerbation COPD, present on admission. Improving - Evidence of emphysema on CT chest and known hx of asbestos exposure - Continue Duonebs QIDWA and Accunebs q2h prn - Budesonide BID - Titrating down the prednisone to 30mg starting 03/09/16, then to 20mg daily thereafter 3. Health care acquired pneumonia, improving - Recent hospitalization for COPD exacerbation, CHF and pneumonia, was treated with Azithromycin and Ceftriaxone on 02/07/16 - Resp PCR negative and blood cultures without bacterial growth - Suspect his dyspnea is due, at least in part, to the pneumonia - Antibiotic therapy with oral doxycycline BID, day 4. Received 3 days of IV Zosyn and Vancomycin. Discontinue ABX on 03/11/16. 4. Acute exacerbation of CHF, evidence of right sided heart failure on echocardiogram - Cor pulmonale component - Continues to have pedal edema, unchanged - Diuretic therapy guided by nephrology - Daily fluid status evaluation 5. Right lower extremity cyanosis, new onset - Change on physical exam from 03/07/16 to 03/08/16 with new cyanosis of the 5th and 2nd toes on the right foot - Arterial doppler ordered to evaluate - Podiatry (Dr Leigh) consulted, he plans to see the patient on 03/09/16 6. Acute respiratory failure, present on admission, improved - Not requiring supplemental oxygen to maintain 88-92% O2 saturation - Suspect acute on chronic - Due to a combination of pneumonia, COPD and CHF - Will have a home oxygen evaluation on the date of discharge 7. Head laceration secondary to GLF, acute, present on admission. Healing - Wound is well appearing - CT brain without acute intracranial abnormality - Stapled in Emergency department, will need staple removal early this next week - Wound care to follow 8. Ground level fall, acute, unclear if this is a recurrent issue for him or if this was an unwitnessed syncopal episode - Likely secondary to weakness in the setting of #2-4 above - PT to continue to work with the patient who will discharge to SNF with physical therapy 9. Chronic left foot ulceration with myonecrosis, present on admission. - Wound care consulting - Plan to have outpatient wound care in [place] as he will be living up there after discharge 10. Bladder cancer, chronic. Presumed stable - Reportedly, he received BCG instillations and transurethral resection of of bladder tumor for past treatment - Currently having urinary retention for which a Guajardo catheter was placed 11. Elevated troponin of undetermined chronicity, stable - On admit: 0.142, increased to 0.163 then decreased to 0.13 - Secondary to CKD 12. Hypothyroidism, chronic. Presumed stable - Continued levothyroxine at reported dose - Acetaminophen PRN: Fever/antiemetic/bowel/pain - DIET: Heart healthy/CC Disposition: Will likely discharge to SNF once a bed is available and authorized by his insurance, so long as his foot does not worsen. VTE Prophylaxis: Sub-Q Heparin (Unfractionated), Other (initially held due to bleeding scalp wound, started subcutaneous heparin on 03/04/16) VTE Mechanical Devices: Venous Foot Pump Resuscitation Status: DNR/DNI:Do Not Resuscitate/Intubate Limited Interventions: BiPAP, Medications and IV Fluid Attending Statement The patient was seen and examined together with Dr. Mathias on 03/08/2016 and I agree with the history, exam and plan as outlined in the note above. Adriane Mathias DO Mar 08, 2016 13:18 Ranjit Calderon MD Mar 09, 2016 12:13
[2016-03-09] VITALS (9 sets, daily range): BP systolic 110–139; BP diastolic 53–63; PULSE 68–83; RESP 12–20; O2SAT 90–99
--- NOTE | 2016-03-09 05:43 | NUR ---
SOB Pt having SOB on rest. Currently on 2LPM o2 for comfort. Denies chest pain, n/v and abd discomfort. Guajardo draining and patent. Q2 turns provided for comfort. Will continue to monitor.
[2016-03-09] MEDS ORDERED: Potassium Chloride 20 mEq SR Tablet PO ONE ×2 (07:35→13:30)
[2016-03-09] MEDS: Albuterol-Ipratropium 3 mL Inhalation Solution NEB SCH ×4 (07:55→19:31)
[2016-03-09] MEDS: Budesonide 0.5 mg/2 mL Inhalation Solution NEB SCH ×2 (07:55→19:31)
[2016-03-09] MEDS ORDERED: Potassium Chloride Inj 40 MEQ in 0.9% Sodium Chloride 500 ML IV ONE (08:50)
[2016-03-09] MEDS: Heparin 5,000 Unit/mL Inj SUBQ SCH ×2 (08:57→19:52)
[2016-03-09] MEDS: Insulin LISPRO 300 Unit/3 mL Inj SUBQ SCH ×4 (08:58→21:46)
[2016-03-09] MEDS: Isosorbide Mononitrate 30 mg ER24 Tablet PO SCH ×2 (08:59→19:51)
[2016-03-09] MEDS: predniSONE 20 mg Tablet PO SCH (08:59)
[2016-03-09] MEDS: Polyethylene Glycol (PEG) 17 Gm Powder PO SCH (09:01)
[2016-03-09] MEDS ORDERED: 0.9% Sodium Chloride 250 ML ONE (11:38)
--- NOTE | 2016-03-09 11:59 | NUR ---
Social Work-readiness for discharge: Data:EMR reviewed. Pt is on day 7 of hospitalization for GLF per H&P. Pt is not medically stable anticipate tomorrow or the next day. PT continues to recommend SNF placement. Pt has been accepted at [facility] in [place]. Insurance authorization has not yet been obtained. Paperwork in the chart. SW will continue to follow. Assessment:Pt to benefit from SNF. Plan:[facility] has accepted pt. Insurance authorization has been submitted, but not yet obtained. Paperwork in the chart. SW will continue to follow. SANCHEZ Casillas
--- NOTE | 2016-03-09 13:39 | PCM.PNMED ---
Subjective Date of Service Mar 09, 2016 Subjective No new complaints today, vital stable. Today, Patient reports feeling good. Medically stable, await a bed at [facility]. Exam Vital Signs Vital Sign - Last Date Time Temp Pulse Resp B/P Pulse Ox O2 Delivery O2 Flow Rate FiO2 03/09/16 12:04 68 20 95 Nasal Cannula 1.00 03/09/16 05:17 36.6 139/63 Intake and Output 03/08/16 03/08/16 03/09/16 Cumulative From/Thru 15:00 23:00 07:00 03/02/16 08:13 - 03/09/16 05:17 Intake Total 650 ml 8875 ml Output Total 520 ml 48909 ml Balance 130 ml -1692 ml Intake Oral 650 ml 7024 ml IV Total 1851 ml Output Urine Total 520 ml 52127 ml # Bowel Movements 0 3 Exam General: No acute distress HEENT: Normocephalic, atraumatic. External ears without defect. Pupils equal, round, and reactive to light and accommodation. Anicteric sclerae, moist conjunctivae, and no lid lag. Neck: Supple with full range of motion. No jugular venous distension. No bruits. No lymphadenopathy or thyromegaly. Cardiovascular: Regular rate and rhythm with no murmurs, rubs, or gallops appreciated Pulmonary: Clear to auscultation bilaterally with no crackles, wheezes, or rhonchi. Normal respiratory effort with no use of accessory muscles. Abdomen: Bowel tones present. Soft, nontender, nondistended. No hepatosplenomegaly or masses appreciated. Extremities: No clubbing, cyanosis, edema, or lymphadenopathy appreciated. Skin: Left foot cool Neurological: Cranial nerves grossly intact. Moving equally in all 4 limbs Psychiatric: Normal mood and affect. Alert and oriented to person, place, and time. IVs and Medications Medications Reviewed: Medications were reviewed in detail Lab and Diagnostics Result Diagram: 03/08/16 0642 03/09/16 0550 X-Rays, CTs and MRIs CT angio chest 03/03/16: FINDINGS: Image quality: Excellent. Pulmonary arteries: Pulmonary arteries demonstrate no intraluminal filling defects to suggest central pulmonary embolism. The main pulmonary artery is enlarged up to 3.4 cm diameter. Lungs and pleura: Patchy bilateral posterior upper lobe opacities are present, superimposed on a background of apical predominant emphysema. Small bilateral pleural effusions are present, as well as bilateral pleural calcifications. Central and peripheral airways are patent. Mediastinum: There is mild cardiomegaly, with enlargement of both atria. No pericardial effusion. No mediastinal or hilar adenopathy. Thoracic aorta is normal in caliber and enhancement. Esophagus is normal in caliber, with a small hiatal hernia. Bones and chest wall: No suspicious bony lesions. Minimal T4, minimal T5, moderate T6, mild T8, moderate T9, mild T11, and moderate T12 vertebral body compression fractures are present. Sagittal reformatted images demonstrate cortical discontinuity to the anterior T12 vertebral body. Thyroid gland is normal in size but incompletely visualized. No axillary or supraclavicular adenopathy. Abdomen: There is reflux of contrast into patent hepatic veins. Liver capsule demonstrates nodular contour, indicating cirrhosis. There is perihepatic and perisplenic ascites. 3.2 cm medial right renal cortical simple cyst is present. IMPRESSION: 1. No evidence for central pulmonary embolism. Enlarged main pulmonary artery would be consistent with pulmonary arterial hypertension. 2. Significant reflux of intravenous contrast into patent hepatic veins would be consistent with congestive right heart failure. Disproportionately enlarged right and left atria would suggest tricuspid and mitral valve stenoses. 3. Findings suggestive of bilateral posterior upper lobe bronchopneumonia, on a background of emphysema. 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 4. Cirrhotic liver, along with small perihepatic and perisplenic ascites. 5. Multiple nonacute mid and lower thoracic spine compression fractures as described above, as well as acute moderate T12 anterior wedge compression fracture. 6. Small retrocardiac hiatal hernia. Dictated by: Deng Steinberg M.D. on 03/03/2016 at 20:56 Assessment & Plan Guillermo is a 75yo male with reported history of COPD, congestive heart failure, atrial fibrillation, and recent hospitalization at [facility] in [place] for CHF and COPD, who presented to [facility] via EMS from [facility] after he experienced an unwitnessed ground level fall with resultant posterior scalp laceration. Found to have bilateral upper lobe pneumonia and left sided pleural effusion. Hospital day # 6 1. Acute kidney injury on CKD stage IV, improved and stable - Contrast nephropathy worsened his renal function - On admit: Cr 1.81, increased up to Cr 2.33 with eGFR of 26 and has improved to Cr 2.26 which it has remained at for 2 days now - Diuretics held on 03/05/15, Bumex started by nephrology on 03/06/15 with stabilization of his creatinine and pedal edema - He has a left sided fistula already placed in preparation for dialysis, if needed which has never been utilized. He has verbally expressed to the palliative team that he would like to do dialysis if needed. - Nephrology has assisted with his care, he will follow up as an outpatient with his bilingual administrative assistant in [place] post discharge. - Will need a BMP 1 week after discharge to evaluate his renal function 2. Acute exacerbation COPD, present on admission. Improving - Evidence of emphysema on CT chest and known hx of asbestos exposure - Continue Duonebs QIDWA and Accunebs q2h prn - Budesonide BID - Titrating down the prednisone to 30mg starting 03/09/16, then to 20mg daily thereafter 3. Health care acquired pneumonia, improving - Recent hospitalization for COPD exacerbation, CHF and pneumonia, was treated with Azithromycin and Ceftriaxone on 02/07/16 - Resp PCR negative and blood cultures without bacterial growth - Suspect his dyspnea is due, at least in part, to the pneumonia - Antibiotic therapy with oral doxycycline BID, day 4. Received 3 days of IV Zosyn and Vancomycin. Discontinue ABX on 03/11/16. 4. Acute exacerbation of CHF, evidence of right sided heart failure on echocardiogram - Cor pulmonale component - Continues to have pedal edema, unchanged - Diuretic therapy guided by nephrology - Daily fluid status evaluation 5. Right lower extremity cyanosis, new onset - Change on physical exam from 03/07/16 to 03/08/16 with new cyanosis of the 5th and 2nd toes on the right foot - Arterial doppler ordered to evaluate - Podiatry (Dr Leigh) consulted, he plans to see the patient on 03/09/16 6. Acute respiratory failure, present on admission, improved - Not requiring supplemental oxygen to maintain 88-92% O2 saturation - Suspect acute on chronic - Due to a combination of pneumonia, COPD and CHF - Will have a home oxygen evaluation on the date of discharge 7. Head laceration secondary to GLF, acute, present on admission. Healing - Wound is well appearing - CT brain without acute intracranial abnormality - Stapled in Emergency department, will need staple removal early this next week - Wound care to follow 8. Ground level fall, acute, unclear if this is a recurrent issue for him or if this was an unwitnessed syncopal episode - Likely secondary to weakness in the setting of #2-4 above - PT to continue to work with the patient who will discharge to SNF with physical therapy 9. Chronic left foot ulceration with myonecrosis, present on admission. - Wound care consulting - Plan to have outpatient wound care in [place] as he will be living up there after discharge 10. Bladder cancer, chronic. Presumed stable - Reportedly, he received BCG instillations and transurethral resection of of bladder tumor for past treatment - Currently having urinary retention for which a Guajardo catheter was placed 11. Elevated troponin of undetermined chronicity, stable - On admit: 0.142, increased to 0.163 then decreased to 0.13 - Secondary to CKD 12. Hypothyroidism, chronic. Presumed stable - Continued levothyroxine at reported dose - Acetaminophen PRN: Fever/antiemetic/bowel/pain - DIET: Heart healthy/CC Disposition: Will likely discharge to SNF once a bed is available and authorized by his insurance, so long as his foot does not worsen. VTE Prophylaxis: Sub-Q Heparin (Unfractionated), Other (initially held due to bleeding scalp wound, started subcutaneous heparin on 03/04/16) VTE Mechanical Devices: Intermittant Pneumatic CD Resuscitation Status: DNR/DNI:Do Not Resuscitate/Intubate Limited Interventions: BiPAP, Medications and IV Fluid Lavelle Medina DO Mar 09, 2016 13:39
--- NOTE | 2016-03-09 13:48 | PCM.PNMED ---
Subjective Date of Service Mar 09, 2016 Subjective c/o dry mount, no SOB. LE swelling has improved. no acute issue overnight. Exam Vital Signs Vital Sign - Last Date Time Temp Pulse Resp B/P Pulse Ox O2 Delivery O2 Flow Rate FiO2 03/09/16 12:04 68 20 95 Nasal Cannula 1.00 03/09/16 05:17 36.6 139/63 Intake and Output 03/08/16 03/08/16 03/09/16 Cumulative From/Thru 15:00 23:00 07:00 03/02/16 08:13 - 03/09/16 05:17 Intake Total 650 ml 8875 ml Output Total 520 ml 45206 ml Balance 130 ml -1692 ml Intake Oral 650 ml 7024 ml IV Total 1851 ml Output Urine Total 520 ml 44479 ml # Bowel Movements 0 3 Exam PHYSICAL EXAMINATION: General appearance: Chronically ill looking, in no acute distress. HEENT: Positive for temporal muscle wasting. Dry mucous membranes. Mild pallor. No jaundice. No JVD. No lymphadenopathy. No thyroid enlargement. Heart: Irregular rhythm. Normal S1, S2. Systolic murmur noted. Respiratory: coarse crackles. Expiratory wheezing noted. Abdomen soft, active bowel sounds. No hepatosplenomegaly. Extremities: 1+ edema with poor dorsalis pedis. Positive chronic skin changes on the lower extremity. left AVF with good thrill and bruit. Lab and Diagnostics Result Diagram: 03/08/16 0642 03/09/16 0550 X-Rays, CTs and MRIs CT angio chest 03/03/16: FINDINGS: Image quality: Excellent. Pulmonary arteries: Pulmonary arteries demonstrate no intraluminal filling defects to suggest central pulmonary embolism. The main pulmonary artery is enlarged up to 3.4 cm diameter. Lungs and pleura: Patchy bilateral posterior upper lobe opacities are present, superimposed on a background of apical predominant emphysema. Small bilateral pleural effusions are present, as well as bilateral pleural calcifications. Central and peripheral airways are patent. Mediastinum: There is mild cardiomegaly, with enlargement of both atria. No pericardial effusion. No mediastinal or hilar adenopathy. Thoracic aorta is normal in caliber and enhancement. Esophagus is normal in caliber, with a small hiatal hernia. Bones and chest wall: No suspicious bony lesions. Minimal T4, minimal T5, moderate T6, mild T8, moderate T9, mild T11, and moderate T12 vertebral body compression fractures are present. Sagittal reformatted images demonstrate cortical discontinuity to the anterior T12 vertebral body. Thyroid gland is normal in size but incompletely visualized. No axillary or supraclavicular adenopathy. Abdomen: There is reflux of contrast into patent hepatic veins. Liver capsule demonstrates nodular contour, indicating cirrhosis. There is perihepatic and perisplenic ascites. 3.2 cm medial right renal cortical simple cyst is present. IMPRESSION: 1. No evidence for central pulmonary embolism. Enlarged main pulmonary artery would be consistent with pulmonary arterial hypertension. 2. Significant reflux of intravenous contrast into patent hepatic veins would be consistent with congestive right heart failure. Disproportionately enlarged right and left atria would suggest tricuspid and mitral valve stenoses. 3. Findings suggestive of bilateral posterior upper lobe bronchopneumonia, on a background of emphysema. 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 4. Cirrhotic liver, along with small perihepatic and perisplenic ascites. 5. Multiple nonacute mid and lower thoracic spine compression fractures as described above, as well as acute moderate T12 anterior wedge compression fracture. 6. Small retrocardiac hiatal hernia. Dictated by: Deng Steinberg M.D. on 03/03/2016 at 20:56 Assessment & Plan 1. MARITZA on CKD-4 - secondary to MATTHEW. - worsening metabolic alkalosis, per exam with some degree of intravascular volume depletion. 2. Right sided heart failure. 3. COPD exacerbation. 4. Health-care assoc PNA. 5. Bladder cancer, now with urinary retention. Plan: - hold diuretic one more day. - NS+KCL 40 meq 60 ml/hr x 500 ml then d/c. - will monitor volume status closely. VTE Prophylaxis: Sub-Q Heparin (Unfractionated), Other (initially held due to bleeding scalp wound, started subcutaneous heparin on 03/04/16) VTE Mechanical Devices: Intermittant Pneumatic CD Resuscitation Status: DNR/DNI:Do Not Resuscitate/Intubate Limited Interventions: BiPAP, Medications and IV Fluid Abby Villalpando MD Mar 09, 2016 13:48
--- NOTE | 2016-03-09 15:03 | NUR ---
K+ Pt given KCl 20 mEq PO this AM as well as a K+ rider. Rec'd new order for an additional dose of 20 mEq of KCL PO. Spoke with MD vicente: previous doses and that K+ had not been rechecked after those doses given. Order rec'd to hold current PO order.
--- NOTE | 2016-03-09 16:55 | PCM.CHPPOD ---
Subjective Date of service Mar 09, 2016 History of Present Illness 75 year old male evaluated resting comfortably in bed in [facility]. Patient denies any discomfort. Patient states that he has previously been evaluated by a Vascular specialist in [place] with an attempted revascularization procedure of the left lower extremity recently. patient states that this procedure occluded shortly after the attempt. Allergy Allergies: Coded Allergies: No Known Allergies (Unverified , 03/02/16) Medications Acetaminophen (Acetaminophen) 325 Mg Tablet 650 MG PO Q4H PRN PRN Pain and fever Albuterol HFA (Proair HFA) 8.5 Gm Hfa.aer.ad 2 PUFFS INHALATION Q4H PRN PRN For Shortness of Breath Aspirin (Aspirin) 325 Mg Tablet 325 MG PO DAILY Atorvastatin (Lipitor) 20 Mg Tablet 20 MG PO HS Calcitonin,Charlotte,Synthetic (Calcitonin-Charlotte) 3.7 Ml Shirley.pump 1 SPRAY NS DAILY Each nares alternating sides Carvedilol (Carvedilol) 6.25 Mg Tablet 6.25 MG PO BID Clopidogrel Bisulfate (Plavix) 75 Mg Tablet 75 MG PO DAILY Ferrous Sulfate (Iron) 325 Mg Capsule.er 325 MG PO DAILY Finasteride (Finasteride) 5 Mg Tablet 5 MG PO HS Gabapentin (Gabapentin) 300 Mg Capsule 600 MG PO HS Guaifenesin (Guaifenesin ER) 600 Mg Tab.er.12h 600 MG PO Q6H PRN PRN For Congestion Hydrocodone-Acetaminophen 5-325 mg (Hydrocodone-Acetaminophen 5-325 mg) 1 Each Tablet 1 TABLET PO Q4H PRN PRN For Pain Isosorbide MN ER (Isosorbide MN ER) 30 Mg Tab.er.24h 30 MG PO BID L.acidoph & Paracasei,B.lactis (Probiotic) 10 Billion Cell Capsule 1 CAPSULE PO DAILY Levothyroxine (Levothyroxine) 125 Mcg Tablet 125 MCG PO DAILY Multivitamin (Multi Vitamin Daily) 1 Each Tablet 1 TABLET PO DAILY Nicotine 21 mg/24 hr Patch (Nicotine 21 mg/24 hr Patch) 1 Each Patch.dysq 1 PATCH TRANSDERM DAILY Polyethylene Glycol 3350 (Miralax) 17 Gm Powd.pack 17 GM PO DAILY PRN PRN For Constipation Potassium Chloride ER (Potassium Chloride ER) 20 Meq Tablet.er 40 MEQ PO DAILY TAKE WITH FOOD Prednisolone (Prednisolone) 15 Mg/5 Ml Solution 40 MG PO DAILY Salmeterol Xinafoate (Serevent Diskus) 50 Mcg/Puff Inhaler 1 PUFF IH BID Tamsulosin (Flomax) 0.4 Mg Capsule 0.8 MG PO HS Tiotropium [place] (Spiriva) 18 Mcg Cap.w.dev 18 MCG IH DAILY Rinse mouth after use Torsemide (Torsemide) 20 Mg Tablet 60 MG PO Every other day Alternating with Torsemide 80 mg Torsemide (Torsemide) 20 Mg Tablet 80 MG PO Every other day Alternating with Torsemide 60 mg Past Medical History Surgeries: Yes (CABG, L. arm fistula, Stent on LE) Medical History: Surgical History: Social History Occupation: Unemployed Hx Alcohol Use: Yes (Last drink > 1 year) Hx Substance Use: No Hx Tobacco Use: Yes ('entire life') Smoking Status: Current Every Day Smoker, Light Tobacco Smoker Podiatry Consult Exam Vital Signs Vital Sign - Last Date Time Temp Pulse Resp B/P Pulse Ox O2 Delivery O2 Flow Rate FiO2 03/09/16 16:15 78 12 98 Nasal Cannula 1.00 03/09/16 13:48 36.4 110/53 Intake and Output 03/08/16 03/08/16 03/09/16 Cumulative From/Thru 15:00 23:00 07:00 03/02/16 08:13 - 03/09/16 05:17 Intake Total 650 ml 8875 ml Output Total 520 ml 58152 ml Balance 130 ml -1692 ml Intake Oral 650 ml 7024 ml IV Total 1851 ml Output Urine Total 520 ml 75095 ml # Bowel Movements 0 3 Result Diagram: 03/08/16 0642 03/09/16 0550 Lab Test 03/02/16 09:51 03/02/16 10:11 03/02/16 18:15 03/03/16 06:00 Total Creatine Kinase 57U/L (21-232) Creatine Kinase MB 5.3ng/mL (0.0-10.4) Creatine Kinase MB % % (0.0-5.0) Pro-B-Type Natriuretic Peptide 7466pg/mL (0-486) Hold Arora Top Tube Received (Received) Urine Legionella pneumophilia Ag Negative (Negative) Hemoglobin A1c 6.8% (4.8-5.6) Thyroid Stimulating Hormone (TSH) 2.320uIU/mL (0.450-4.500) Free Thyroxine 1.14ng/dL (0.82-1.77) Random Vancomycin Level 10.3ug/mL Rx Test 03/03/16 18:00 03/04/16 09:30 03/05/16 01:32 03/05/16 05:50 Troponin T 0.137ug/L (0.0-0.011) Prothrombin Time 12.3sec (8.1-12.5) Prothromb Time International Ratio 1.15ratio Urine Color Yellow (YELLOW) Urine Appearance Clear (CLEAR,HAZY) Urine pH 6.0 (5.0-8.0) Urine Specific [place] 1.010 (1.003-1.035) Urine Protein Negativemg/dL (NEG,TRACE) Urine Glucose (UA) Negativemg/dL (NEGATIVE) Urine Ketones Negativemg/dL (NEGATIVE) Urine Occult Blood Small (NEGATIVE) Urine Nitrite Negative (NEGATIVE) Urine Bilirubin Negative (NEGATIVE) Urine Urobilinogen Normalmg/dL (NORMAL) Urine Leukocyte Esterase Small (NEGATIVE) Urine RBC 3-10/hpf (0-2) Urine WBC 11-50/hpf (0-5) Urine Epithelial Cells Few/hpf (NONE-MOD) Urine Crystals None seen (NONE SEEN) Urine Bacteria Few/hpf (NONE-FEW) Urine Hyaline Casts None/lpf (NONE) Urine Granular Casts None seen (NONE SEEN) Urine Waxy Casts None seen (NONE SEEN) Urine Red Blood Cell Casts None seen (NONE SEEN) Urine White Blood Cell Casts None seen (NONE SEEN) Urine Mucus None seen (None Seen) Urine Trichomonas None seen (NONE SEEN) Urine Yeast None (NONE SEEN) Urinalysis Comment None Urine Culture Reflexed Indicated Procalcitonin 0.13ng/mL (See Comment) Test 03/05/16 10:32 03/07/16 06:00 03/08/16 06:42 03/09/16 05:50 Vancomycin Level Trough 18.3mcg/mL Phosphorus Level 5.6mg/dL (2.5-4.9) White Blood Count 7.4th/mm3 (3.8-10.1) Red Blood Count 3.21mil/mm3 (4.40-5.80) Hemoglobin 9.6g/dL (13.8-17.2) Hematocrit 31.5% (41.0-50.0) Mean Corpuscular Volume 98.1fL (81-100) Mean Corpuscular Hemoglobin 29.9pg (27.0-35.0) Mean Corpuscular Hemoglobin Concent 30.5% (32.0-37.0) Red Cell Distribution Width 20.5% (12.3-15.4) Platelet Count 131bil/L (150-400) Neutrophils (%) (Auto) 74.3% (40-74) Lymphocytes (%) (Auto) 10.7% (14-46) Monocytes (%) (Auto) 13.9% (4-12) Eosinophils (%) (Auto) 0.8% (0-5) Basophils (%) (Auto) 0% (0-3) Total Bilirubin 0.7mg/dL (0.0-1.2) Aspartate Amino Transf (AST/SGOT) 18U/L (0-50) Alanine Aminotransferase (ALT/SGPT) 16U/L (0-44) Alkaline Phosphatase 98U/L (25-160) Total Protein 6.4g/dL (6.4-8.4) Albumin 2.8g/dL (3.4-5.0) Sodium Level 137mEq/L (134-144) Potassium Level 3.4mEq/L (3.5-5.2) Chloride Level 93mEq/L (97-108) Carbon Dioxide Level 32mmol/L (18-29) Blood Urea Nitrogen 75mg/dL (8-27) Creatinine 2.30mg/dL (0.76-1.27) Estimat Glomerular Filtration Rate 30mL/min (>59) Glucose Level 181mg/dL (60-99) Calcium Level 8.1mg/dL (8.5-10.1) Magnesium Level 2.4mg/dL (1.6-2.6) Exam General: Alert, Oriented X3, Cooperative, No Acute Distress Lower Extremities: Right: Extremity cyanotic Bilateral: Extremity cool Lower Extremity Pulses: Doppler: Left Dorsalis Pedis Left Posterior Tibal Right Dorsalis Pedis Right Posterior Tibal Podiatry WOUND : Wound Location/Description discoloration consistent with early ischemic necrosis of the right 4th toe with superficial plantar wound measuring 2mm x 3 mm delayed capillary refill time to greater then 5 seconds. no full thickness ulceration present. full thickness ulceration of the left dorsal foot without exposed bone or tendon. no mal odor. no surrounding erythema no signs of infection. wound bed is 80% fibrotic with 20% granular tissue. minimal yellow drainage noted. Assessment & Plan Assessment Stable left dorsal foot ulceration without signs of infection, peripheral arterial disease with early ischemic necrosis of the right foot Problems: Plan Detailed evaluation preformed at bedside. symptoms consistent with early ischemic necrosis of the right fourth toe. No immediate surgical intervention needed. Patent would benefit from urgent consultation with [facility] cardiology or similar service able to provide potential revascularization such as interventional radiology. This condition is likely to worsen and progress to gangrenous necrosis if patient is unable to receive successful revascularization. Continue local wound care to left foot per wound care service recommendations. Podiatry will continue to follow every 48-72 hrs while admitted to evaluate progression of right foot ischemia. VTE Prophylaxis: Sub-Q Heparin (Unfractionated), Other (initially held due to bleeding scalp wound, started subcutaneous heparin on 03/04/16) VTE Mechanical Devices: Intermittant Pneumatic CD Osiel Leigh DPM Mar 09, 2016 16:55
--- NOTE | 2016-03-09 18:00 | NUR ---
Activity/skin Pt up to [facility] this shift and sat up in chair to eat dinner. Pt req 2 person max assist to transfer, denied dizziness and tolerated activity well. Pt remains on 1L via NC, 02 stable at 91% with activity. Some audible wheezes while getting up and moving around. Enc to cough and deep breathe. Scrotum/penis remain swollen, lizarraga is patent, draining yellow urine. Drsg to L foot changed this afternoon per wound care orders.
[2016-03-10] VITALS (9 sets, daily range): BP systolic 123–134; BP diastolic 62–72; PULSE 65–88; RESP 20–22; O2SAT 88–99
--- NOTE | 2016-03-10 05:58 | NUR ---
NOC activity Pt pleasant and cooperative with care. Denies chest pain, sob, n/v and abd discomfort. Insulin and HS meds adminitered as scheduled. Q2 turns provided. Hourly rounding done. Pt has slept most of the night.
[2016-03-10] MEDS: Albuterol-Ipratropium 3 mL Inhalation Solution NEB SCH ×4 (07:38→21:05)
[2016-03-10] MEDS: Insulin LISPRO 300 Unit/3 mL Inj SUBQ SCH ×4 (07:49→21:37)
[2016-03-10] MEDS: Budesonide 0.5 mg/2 mL Inhalation Solution NEB SCH ×2 (08:04→21:05)
[2016-03-10] MEDS: Isosorbide Mononitrate 30 mg ER24 Tablet PO SCH ×2 (08:36→20:41)
[2016-03-10] MEDS: Heparin 5,000 Unit/mL Inj SUBQ SCH ×2 (08:37→20:42)
[2016-03-10] MEDS: Polyethylene Glycol (PEG) 17 Gm Powder PO SCH ×2 (08:37→20:42)
--- NOTE | 2016-03-10 09:27 | NUR ---
Called and spoke with Linda in Care Management at [facility]. This case has been approved for 03/06/16-03/20/16 Authorization # is [id number]. This is good until 03/20 and patient plan is to go to [facility] in [place]. Called and left message for Pippa in admissions at [facility] and let her know patient now has authorization in place and we would like to look at discharge today. Updated NEUROPSYCHIATRIC AIDE Addendum: 03/10/16 at 1115 by NKECHI KING CM Spoke with Pippa in admissions and she is requesting updated notes. Faxed to [phone]. She is also needing to see if she has an open bed for patient today. Updated NEUROPSYCHIATRIC AIDE
--- NOTE | 2016-03-10 11:15 | NUR ---
AKUA signed with daughter via phone. SANCHEZ Casillas
--- NOTE | 2016-03-10 12:56 | NUR ---
DC lizarraga catheter 82 ml residual on bladder scan this RN will bladder scan in 4 hours
[2016-03-10] MEDS: predniSONE 20 mg Tablet PO SCH (13:37)
--- NOTE | 2016-03-10 14:33 | PCM.PNMED ---
Subjective Date of Service Mar 10, 2016 Subjective Patient's renal function continues to improve. This morning his BUN and creatinine were 72 and 1.98 respectively. His intake was 2071 with a output of 1650. His blood pressures currently offers no new complaints. Exam Vital Signs Vital Sign - Last Date Time Temp Pulse Resp B/P Pulse Ox O2 Delivery O2 Flow Rate FiO2 03/10/16 11:38 70 20 98 Nasal Cannula 2.00 03/10/16 05:25 36.4 134/66 Intake and Output 03/09/16 03/09/16 03/10/16 Cumulative From/Thru 15:00 23:00 07:00 03/02/16 08:13 - 03/10/16 05:25 Intake Total 640 ml 1382 ml 70922 ml Output Total 900 ml 750 ml 35872 ml Balance -260 ml 632 ml -1320 ml Intake Oral 640 ml 1050 ml 8714 ml IV Total 332 ml 2183 ml Output Urine Total 900 ml 750 ml 73940 ml # Bowel Movements 0 0 3 Exam Neck is supple without adenopathy thyromegaly or jugular venous distention. Lungs are clear to auscultation. Heart is regular with soft systolic murmur. Abdomen soft without any tenderness rebound guarding masses or hepatosplenomegaly. Extremities show any clubbing cyanosis or edema. Lab and Diagnostics Result Diagram: 03/08/16 0642 03/10/16 0547 X-Rays, CTs and MRIs CT angio chest 03/03/16: FINDINGS: Image quality: Excellent. Pulmonary arteries: Pulmonary arteries demonstrate no intraluminal filling defects to suggest central pulmonary embolism. The main pulmonary artery is enlarged up to 3.4 cm diameter. Lungs and pleura: Patchy bilateral posterior upper lobe opacities are present, superimposed on a background of apical predominant emphysema. Small bilateral pleural effusions are present, as well as bilateral pleural calcifications. Central and peripheral airways are patent. Mediastinum: There is mild cardiomegaly, with enlargement of both atria. No pericardial effusion. No mediastinal or hilar adenopathy. Thoracic aorta is normal in caliber and enhancement. Esophagus is normal in caliber, with a small hiatal hernia. Bones and chest wall: No suspicious bony lesions. Minimal T4, minimal T5, moderate T6, mild T8, moderate T9, mild T11, and moderate T12 vertebral body compression fractures are present. Sagittal reformatted images demonstrate cortical discontinuity to the anterior T12 vertebral body. Thyroid gland is normal in size but incompletely visualized. No axillary or supraclavicular adenopathy. Abdomen: There is reflux of contrast into patent hepatic veins. Liver capsule demonstrates nodular contour, indicating cirrhosis. There is perihepatic and perisplenic ascites. 3.2 cm medial right renal cortical simple cyst is present. IMPRESSION: 1. No evidence for central pulmonary embolism. Enlarged main pulmonary artery would be consistent with pulmonary arterial hypertension. 2. Significant reflux of intravenous contrast into patent hepatic veins would be consistent with congestive right heart failure. Disproportionately enlarged right and left atria would suggest tricuspid and mitral valve stenoses. 3. Findings suggestive of bilateral posterior upper lobe bronchopneumonia, on a background of emphysema. 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 4. Cirrhotic liver, along with small perihepatic and perisplenic ascites. 5. Multiple nonacute mid and lower thoracic spine compression fractures as described above, as well as acute moderate T12 anterior wedge compression fracture. 6. Small retrocardiac hiatal hernia. Dictated by: Deng Steinberg M.D. 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 VTE Prophylaxis: Sub-Q Heparin (Unfractionated), Other (initially held due to bleeding scalp wound, started subcutaneous heparin on 03/04/16) VTE Mechanical Devices: Intermittant Pneumatic CD Resuscitation Status: DNR/DNI:Do Not Resuscitate/Intubate Limited Interventions: BiPAP, Medications and IV Fluid Fortino Carmen DO Mar 10, 2016 14:33
--- NOTE | 2016-03-10 15:20 | NUR ---
voiding pt up to the BSC with 2PA, pt had a large BM and voided in the BSC. Urine unmeasured.
--- NOTE | 2016-03-10 16:09 | NUR ---
NUTRITION FOLLOW UP ASSESS: 75 YO male admitted for head laceration s/p ground level fall. Renal function is improving. Per notes, wants to continue monitoring input, output and labs. Pt will d/c to [facility] in [place], but is awaiting a bed. PMHx: COPD, CHF, A-fib, bilat PNA, l sided pleural effusion, HTN, CKD IV, pre-diabetes, bladder cancer s/p TURP, Basal cell cancer, depression and PVD. LABS: CO2 31, BUN 72, [employer] 1.98, Gluc 168, Ca 8.1, Alb 2.8 MEDS: Reviewed. GI: BM x 1 (03/06) SKIN: L dorsal foot wound and head laceration. CURRENT WT: 90.1 kg. BMI: 26.9 kg/m2 ADMIT WT: 87.1 kg. DIET: Heart Healthy, Diabetic. PO slightly improved w/ ave. 70% intake EST. NEEDS: WOUND, COPD, CKD STAGE IV Kcals: 9544-2893 kcals (30-35 kcals/kg BW) Protein: 70-105 g protein (0.8-1.2 g/kg BW) NUTRITION DIAGNOSIS: 1.) Inadequate oral intake related to confusion as evidenced by po intake of ~50% x 3 days.---IMPROVING 2.) Increased nutrient needs related to increased demand for nutrients as evidenced by current skin issues and CKD and COPD.---PERSISTS NUTRITION INTERVENTION: 1.) Will continue sending Glucerna TID with meals. MONITOR / EVAL: PO intake, labs, nutritional status. Follow per moderate nutritional risk guidelines. Addendum: 03/10/16 at [address] Auxiliary student documentation reviewed. I agree with above documentation. Rhina Adams, DIRK, CD
--- NOTE | 2016-03-10 16:17 | NUR ---
Wound Care Pt seen at bedside for left dorsal foot wound reassessment. On removal of dressing today wound is unchanged dimensionally but wound bed continues to be stable with 90% granulation tissue and 10% slough in the wound bed. Saline moist gauze used to clean wound bed of biofilm superficially. No tunneling or undermining is noted, periwound is normal. Redressed wound with hydrogel to wound bed, calmoseptine to protect periwound skin,Vaseline gauze and adhesive foam. Right 4th plantar toe wound measures 1.7cmW x 1.4cmL with multiple black ischemic areas but no open area. Redressed this toe with bandaids. Wounds remain stable and slightly improved on left. Nursing to continue dressing changes q 48 hrs. Will need wound care on discharge, pt to be discharged back to [place] at some point.
--- NOTE | 2016-03-10 17:31 | PCM.PNMED ---
Subjective Date of Service Mar 10, 2016 Subjective "Narinder" reports that he is feeling well. Exam Vital Signs Vital Sign - Last Date Time Temp Pulse Resp B/P Pulse Ox O2 Delivery O2 Flow Rate FiO2 03/10/16 16:08 73 20 92 Room Air 03/10/16 15:15 36.4 123/62 03/10/16 11:38 2.00 Intake and Output 03/09/16 03/09/16 03/10/16 Cumulative From/Thru 15:00 23:00 07:00 03/02/16 08:13 - 03/10/16 05:25 Intake Total 640 ml 1382 ml 90227 ml Output Total 900 ml 750 ml 22266 ml Balance -260 ml 632 ml -1320 ml Intake Oral 640 ml 1050 ml 8714 ml IV Total 332 ml 2183 ml Output Urine Total 900 ml 750 ml 08916 ml # Bowel Movements 0 0 3 Exam General: Chronically ill appearing male resting comfortably in bed with the head of the bed elevated to 45degrees, kyphotic. HEENT: Posterior scalp laceration with tawana in place, no erythema or drainage , there is dried blood along the wound edges which are well approximated. PERRLA , sclera anicteric. Cardiac: Irregularly irregular. Holosystolic murmur best heard at the left upper sternal border is present Respiratory: Moderate inspiratory effort, no wheezes, rales, or rhonchi present. No gasping or tripoding. No accessory muscle use Abdomen: Soft, nontender. Moderate pitting edema present on the abdominal wall Extremities: Anasarca The right 4th distal toe is wrapped in a clean and dry dressing. Cool, though pink feet bilaterally. Capillary refill on the right foot 5 seconds, left foot is 3 seconds. There is fine scaling present on both lower legs consistent with chronic stasis. Left dorsal lateral foot ulceration under wrap dressing which is clean, dry, and intact. : Guajardo catheter in place draining yellow, translucent urine IVs and Medications Medications Reviewed: Medications were reviewed in detail Lab and Diagnostics Result Diagram: 03/08/16 0642 03/10/16 0547 X-Rays, CTs and MRIs CT angio chest 03/03/16: FINDINGS: Image quality: Excellent. Pulmonary arteries: Pulmonary arteries demonstrate no intraluminal filling defects to suggest central pulmonary embolism. The main pulmonary artery is enlarged up to 3.4 cm diameter. Lungs and pleura: Patchy bilateral posterior upper lobe opacities are present, superimposed on a background of apical predominant emphysema. Small bilateral pleural effusions are present, as well as bilateral pleural calcifications. Central and peripheral airways are patent. Mediastinum: There is mild cardiomegaly, with enlargement of both atria. No pericardial effusion. No mediastinal or hilar adenopathy. Thoracic aorta is normal in caliber and enhancement. Esophagus is normal in caliber, with a small hiatal hernia. Bones and chest wall: No suspicious bony lesions. Minimal T4, minimal T5, moderate T6, mild T8, moderate T9, mild T11, and moderate T12 vertebral body compression fractures are present. Sagittal reformatted images demonstrate cortical discontinuity to the anterior T12 vertebral body. Thyroid gland is normal in size but incompletely visualized. No axillary or supraclavicular adenopathy. Abdomen: There is reflux of contrast into patent hepatic veins. Liver capsule demonstrates nodular contour, indicating cirrhosis. There is perihepatic and perisplenic ascites. 3.2 cm medial right renal cortical simple cyst is present. IMPRESSION: 1. No evidence for central pulmonary embolism. Enlarged main pulmonary artery would be consistent with pulmonary arterial hypertension. 2. Significant reflux of intravenous contrast into patent hepatic veins would be consistent with congestive right heart failure. Disproportionately enlarged right and left atria would suggest tricuspid and mitral valve stenoses. 3. Findings suggestive of bilateral posterior upper lobe bronchopneumonia, on a background of emphysema. 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 4. Cirrhotic liver, along with small perihepatic and perisplenic ascites. 5. Multiple nonacute mid and lower thoracic spine compression fractures as described above, as well as acute moderate T12 anterior wedge compression fracture. 6. Small retrocardiac hiatal hernia. Dictated by: Deng Steinberg M.D. on 03/03/2016 at 20:56 Assessment & Plan Guillermo is a 75yo male with reported history of COPD, congestive heart failure, atrial fibrillation, and recent hospitalization at [facility] in [place] for CHF and COPD, who presented to [facility] via EMS from [facility] after he experienced an unwitnessed ground level fall with resultant posterior scalp laceration. Found to have bilateral upper lobe pneumonia and left sided pleural effusion. Hospital day # 7 1. Acute kidney injury on CKD stage IV, improved and stable - Contrast nephropathy worsened his renal function - On admit: Cr 1.81, increased up to Cr 2.33 with eGFR of 26 and now 1.98 - Diuretics held on 03/05/15, Bumex started by nephrology on 03/06/15 with stabilization of his creatinine and pedal edema - He has a left sided fistula already placed in preparation for dialysis, if needed which has never been utilized. He has verbally expressed to the palliative team that he would like to do dialysis if needed. - Nephrology has assisted with his care, he will follow up as an outpatient with his credentials specialist in [place] post discharge. - Will need a BMP 1 week after discharge to evaluate his renal function - Will continue to monitor his creatinine and fluid status daily 2. Acute exacerbation COPD, present on admission. Improving - Evidence of emphysema on CT chest and known hx of asbestos exposure - Continue Duonebs QIDWA and Accunebs q2h prn - Budesonide BID - Prednisone 20mg starting today, titrated down from 40mg daily. Recall that he takes prednisone chronically 3. Health care acquired pneumonia, improving - Recent hospitalization for COPD exacerbation, CHF and pneumonia, was treated with Azithromycin and Ceftriaxone on 02/07/16 - Resp PCR negative and blood cultures without bacterial growth - Suspect his dyspnea is due, at least in part, to the pneumonia - Antibiotic therapy with oral doxycycline BID, day 6. Received 3 days of IV Zosyn and Vancomycin. Discontinue ABX on 03/11/16. 4. Acute exacerbation of CHF, evidence of right sided heart failure on echocardiogram - Cor pulmonale component - Diuretic therapy guided by nephrology - Daily fluid status evaluation 5. Right lower extremity cyanosis, new onset, improved - Change on physical exam from 03/07/16 to 03/08/16 with new cyanosis of the 5th and 2nd toes on the right foot - Podiatry recommended an interventional radiology or cardiology consultation for revascularization, however, the perfusion in the patient's foot improved with resolution of cyanosis of the 5th and 2nd toes. - Will continue to monitor 6. Acute respiratory failure, present on admission, resolved - Not requiring supplemental oxygen to maintain 88-92% O2 saturation - Suspect acute on chronic - Due to a combination of pneumonia, COPD and CHF - Will have a home oxygen evaluation on the date of discharge 7. Head laceration secondary to GLF, acute, present on admission. Healing - Wound is well appearing - CT brain without acute intracranial abnormality - Stapled in Emergency department, will remove tawana tomorrow - Wound care to follow 8. Ground level fall, acute, unclear if this is a recurrent issue for him or if this was an unwitnessed syncopal episode - Likely secondary to weakness in the setting of #2-4 above - PT to continue to work with the patient who will discharge to SNF with physical therapy 9. Chronic left foot ulceration with myonecrosis, present on admission. - Wound care consulting - Plan to have outpatient wound care in [place] as he will be living up there after discharge 10. Bladder cancer, chronic. Presumed stable - Reportedly, he received BCG instillations and transurethral resection of of bladder tumor for past treatment - Currently having urinary retention for which a Guajardo catheter was placed and tamsulosin was started 11. Elevated troponin of undetermined chronicity, stable - On admit: 0.142, increased to 0.163 then decreased to 0.13 - Secondary to CKD 12. Hypothyroidism, chronic. Presumed stable - Continued levothyroxine at reported dose - Acetaminophen PRN: Fever/antiemetic/bowel/pain - DIET: Heart healthy/CC Disposition: Will likely discharge to SNF once a bed is available and authorized by his insurance, will complete antibiotics tomorrow and has started a decreased prednisone dose today. VTE Prophylaxis: Sub-Q Heparin (Unfractionated), Other (initially held due to bleeding scalp wound, started subcutaneous heparin on 03/04/16) VTE Mechanical Devices: Intermittant Pneumatic CD Resuscitation Status: DNR/DNI:Do Not Resuscitate/Intubate Limited Interventions: BiPAP, Medications and IV Fluid Time spent 30 minutes Attending Statement I have seen and evaluated patient at bedside and directly supervised in the care provided by resident physician. I agree with above documentation. Adriane Mathias DO Mar 10, 2016 17:08 Troy Lewis DO Mar 11, 2016 13:33
--- NOTE | 2016-03-10 18:22 | PCM.PALLBR ---
Palliative Care Recommendation Mr. Guillermo Ramey is a pleasant 75 year old gentleman with reported history of COPD, combined systolic and diastolic congestive heart failure, atrial fibrillation, HTN, CKDIV, and recent infection resulting in pneumonia, that presented to [facility] via EMS from [facility] after he experienced a syncopal event that resulted in a head laceration. He was admitted for evaluation and treatment of GLF, in addition to acute respiratory failure likely secondary to suspected acute exacerbation of COPD, acute exacerbation CHF , and possible ongoing PNA. Summary of palliative recommendations: Palliative plan: D[facility] with [facility]2016 and patient does qualify for Hospice. The palliative team met with patient while speaking via phone call to daughter Faiza at 11:00 today (03/07/2015) where we discussed Dorene's new POLST. -Symptom management (Pain/other): Addressed by [facility] medicine team. 1. Patient was started on Robitussin with Codeine to help control painful cough. -DPOA/Advanced Directives/POLST - DPOA - unknown at this time likely Angelika or Daughter Faiza, will confirm tomorrow (03/07/2016) - POLST - completed new form 03/07/2016 (see notes below re:FCTM) - Code Status is DNR/DNI on POLST and in EMR -Family Care Team Meeting (FCTM) on 03/07/16: Present were Palliative Team Vee VERA, Suhail Patterson D.O. as well as patient Guillermo Ramey (Bob) and via phone daughter Faiza. -- discuss a new POLST 1) DORENE agreed he understood the difference between full CPR and DNR and emphatically stated he wanted to "not be beat up" and chose to be DNR. 2) Dorene agreed that he understood the difference between Full treatment v Limited intervention v comfort care.and however he was initially unsure of his choice, he knew he did not want "a tube down his throat". His daughter Faiza explained that Dorene would be able to handle a trial of BiPAP/CPAP as well as dialysis, and the use of BiPAP and dialysis was explained to Dorene thoroughly, even stating that he would likely need one or the other given his poor lung and renal function. Dorene asked how long people normally stay on BiPAP and the palliative team stated that is could be several days depending on how sick the person being treated was. Dorene stated he understood and limited innervation was chosen specifically ok for the use of BiPAP/CPAP and dialysis. 3) Dorene agreed yes to antibiotics and also agreed to the use of supplemental nutrition if the condition was reversible. If however the disease causing his hospitalization was end stage and irreversible, he would ask for no tube feeds or parental nutrition be given. The document was then signed and dated by both GONZALO Salguero and Dorene. Vee ended the meeting by asking if the patient or family had any more questions. The family thanks Vee and the palliative team for all there help and the meeting concluded. 03/11: No changes to the decisions made above. Dorene remains ready for discharge when the medical team deems him stable and is looking forward to returning to [place]. -Spiritual support Patient Goals: 1. To get well and get out of the hospital. 2. To get closer to his family in [place]. 3. To try and take more control of his health by starting a diabetic diet. 4. Take care of affairs at home through proxy. Additional Medical Diagnoses with primary management by Hospitalist team include : CHF, COPD, Cor Pulmonale, CKD stage 4, diabetes Problems: End of Life Preferences 1. Patient is currently DNR/DNI in accordance with his wishes and is marked as such on his new POLST as well as in the EMR. Goals of Care 1. To get well and get out of the hospital. 2. To get closer to his family in [place]. 3. To try and take more control of his health by starting a diabetic diet. 4. Take care of affairs at home through proxy. Disposition Discharge to rehab facility [facility] in [place], [place] in the next several days. Resuscitation Status Resuscitation Status: DNR/DNI:Do Not Resuscitate/Intubate Limited Interventions: BiPAP, Medications and IV Fluid POLST Updates/Changes Previous POLST?: Yes (currently on refridgerator at home, will complete a new form tomorrow) POLST Last Review Date: Mar 07, 2016 Antibiotics: Use ABX if can Prolong Life Artificially Admin Nutrition: Trial Period Tube Feeding (for reversible conditions, not for end of life extension) POLST Discussed with: Patient, Health Care Agent (DPOAHC) (daughter Faiza) POLST Review Outcome: New Form Completed (03/07/2016) . Pain: Mild Symptom management: Dyspnea Total time 20 minutes; >50% face to face with patient and/or family, providing counselling regarding plans and recommendations, and in care coordination with his/her medical teams. copies to: Gabriel Chandra DO Palliative Brief Note Date of Service Mar 10, 2016 . Met with patient in his room. He is anxious to be transferred to [place]. he reports less SOB, but still has some secretions and a productive cough for which guiafensen is helping. As we leave, the patient is being seen by the medicine team about new issues regarding his peripheral vasculature--will likely stay another day to be seen by vascular surgeon. Palliative will plan to sign off --unless the results of his procedures warrant our involvement again for GOC or symptom management. thank you so much for the opportunity to assist in the care of this gentleman. Vee Salguero Mar 10, 2016 18:22
[2016-03-10] MEDS: HYDROcodone-APAP 5-325 mg Tablet PO PRN (20:41)
[2016-03-11 05:25] VITALS: BP 144/59; PULSE 78; RESP 20; O2SAT 99
--- NOTE | 2016-03-11 05:33 | NUR ---
Noc activity Pt denies chest pain. Still on 2LPM NC for comfort because of pt desating from 92-87% on ra. Denies n/v and abd discomfort. Had a small formed bm and urinated on the commode and urinal in moderate amount. HS meds administered as scheduled, VSS, insulin administered per sliding scale. Q2 turning provided. Pt has slept most of the night.
[2016-03-11 07:32] VITALS: PULSE 70; RESP 16; O2SAT 96
[2016-03-11] MEDS: Albuterol-Ipratropium 3 mL Inhalation Solution NEB SCH ×2 (07:32→11:46)
[2016-03-11] MEDS: Budesonide 0.5 mg/2 mL Inhalation Solution NEB SCH (07:41)
[2016-03-11] MEDS: Insulin LISPRO 300 Unit/3 mL Inj SUBQ SCH ×2 (07:43→12:00)
[2016-03-11] MEDS: Isosorbide Mononitrate 30 mg ER24 Tablet PO SCH (08:26)
[2016-03-11] MEDS: Heparin 5,000 Unit/mL Inj SUBQ SCH (08:27)
[2016-03-11] MEDS: predniSONE 20 mg Tablet PO SCH (08:27)
--- NOTE | 2016-03-11 09:09 | NUR ---
Social Work-readiness for discharge: Data:EMR Reviewed. Pt is on day 9 of hospitalization for GLF Per H&P. Pt is not medically stable for discharge anticipate later today or tomorrow. VILMA confirmed with UR Specialist Joni that [facility] is able to accept pt today. SW spoke RN and PT and recommendation is w/c [facility] [employer] for transport, they feel like POV would not be the best. SW called [employer] [phone] and quoted SW $120 and then called [facility] and was quoted $140. SW called pt's daughter Faiza to discuss. Faiza is in agreement with private pay w/c [employer],feeling like this would be a safer option. VILMA explained that once discharge is written transport will be set up and SW will call and arranged transport and then have daughter call [employer] for pt. Daughter agreeable to plan. Paperwork in the chart. SW will continue to follow. Assessment:Pt to benefit from SNF. Plan:Pt to discharge to [facility] when medically stable via private pay w/c [facility] [employer]. Authorization has been obtained. Paperwork in the chart. SW will continue to follow. SANCHEZ Casillas
[2016-03-11] MEDS ORDERED: PRED-508 PO (10:56)
--- NOTE | 2016-03-11 11:24 | NUR ---
Called and spoke with Sandra at [facility] in [place], let her know we are planning to have patient out just after noon. Patient will be going by private pay wheelchair van. [employer] checked with about having orders in by noon. Addendum: 03/11/16 at 1215 by NKECHI KING CM Faxed orders to [facility] in [place] [phone]. Arranged wheelchair van for 1400 worm picker and this will be private pay cost at $120.00 for the trip. [employer] is not charging for the chair. 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
[2016-03-11 11:46] VITALS: PULSE 69; RESP 16; O2SAT 94
--- NOTE | 2016-03-11 11:51 | PCM.DIMED ---
Adriane Mathias DO 03/11/16 1151: Discharge Instructions Date of Service Mar 11, 2016 Dates of Hospitalization Mar 02, 2016 at 12:36 Discharge Diagnosis Discharge Diagnosis Acute kidney injury on CKD stage IV due to contrast nephropathy, improved and stable Acute exacerbation COPD, present on admission. Improved Health care acquired pneumonia, treated Acute exacerbation of CHF, evidence of right sided heart failure on echocardiogram Right lower extremity cyanosis, new onset, improved Acute respiratory failure, present on admission, resolved Head laceration secondary to GLF, acute, present on admission. [facility]aling [facility] level fall, acute Chronic left foot ulceration with myonecrosis, present on admission. Bladder cancer, chronic. Presumed stable Elevated troponin secondary to CKD stable Hypothyroidism, chronic. Presumed stable Medication Instructions Take prednisone 1 tablet by mouth daily for the next 5 days. Diet Renal Diet Activity Other (jail) Call your provider Fever or Chills, Shortness of breath, Bleeding, Chest pain, Vomitting, Excessive diarrhea, Weakness (unilateral) Patient Instructions Follow-up plan You need to have a follow up with nephrology. If you prefer, you may see your movie star in [place] in 1-2 weeks, alternatively, you may see Dr Carmen at [facility]. Follow-up Provider: Fortino Carmen DO Follow-up with PCP in: Other (1-2 weeks.) Troy Lewis DO 03/11/16 1343: Discharge Instructions Attending's Statement Read and agree Adriane Mathias DO Mar 11, 2016 11:51 Troy Lewis DO Mar 11, 2016 13:43
--- NOTE | 2016-03-11 12:00 | PCM.PNMED ---
Subjective Date of Service Mar 11, 2016 Subjective Patient continues to do well and is scheduled for discharge later today. His blood pressure is good and his intake and output LAST 24 hours 1781 when in 1979. His BUN and creatinine remained elevated at 74 and 2.01. Exam Vital Signs Vital Sign - Last Date Time Temp Pulse Resp B/P Pulse Ox O2 Delivery O2 Flow Rate FiO2 03/11/16 11:46 69 16 94 Room Air 03/11/16 07:32 2.00 03/11/16 05:25 36.5 144/59 Intake and Output 03/10/16 03/10/16 03/11/16 Cumulative From/Thru 14:59 22:59 06:59 03/02/16 08:13 - 03/11/16 04:43 Intake Total 120 ml 1662 ml 97545 ml Output Total 600 ml 300 ml 54585 ml Balance -480 ml 1362 ml -438 ml Intake Oral 120 ml 892 ml 9726 ml IV Total 770 ml 2953 ml Output Urine Total 600 ml 300 ml 40019 ml # Bowel Movements 0 1 4 Exam HEENT examination remarkable for pale sclera. Neck is supple without adenopathy thyromegaly or jugular venous distention. Lungs show diffuse scattered rhonchi in all lung don. There were no rales or wheezes noted. Heart was regular with soft systolic murmur. Abdomen soft nontender rebound guarding masses or hepatosplenomegaly. Skin turgor skull and there is no evidence of any rashes. Lab and Diagnostics Result Diagram: 03/08/16 0642 03/11/16 0540 X-Rays, CTs and MRIs CT angio chest 03/03/16: FINDINGS: Image quality: Excellent. Pulmonary arteries: Pulmonary arteries demonstrate no intraluminal filling defects to suggest central pulmonary embolism. The main pulmonary artery is enlarged up to 3.4 cm diameter. Lungs and pleura: Patchy bilateral posterior upper lobe opacities are present, superimposed on a background of apical predominant emphysema. Small bilateral pleural effusions are present, as well as bilateral pleural calcifications. Central and peripheral airways are patent. Mediastinum: There is mild cardiomegaly, with enlargement of both atria. No pericardial effusion. No mediastinal or hilar adenopathy. Thoracic aorta is normal in caliber and enhancement. Esophagus is normal in caliber, with a small hiatal hernia. Bones and chest wall: No suspicious bony lesions. Minimal T4, minimal T5, moderate T6, mild T8, moderate T9, mild T11, and moderate T12 vertebral body compression fractures are present. Sagittal reformatted images demonstrate cortical discontinuity to the anterior T12 vertebral body. Thyroid gland is normal in size but incompletely visualized. No axillary or supraclavicular adenopathy. Abdomen: There is reflux of contrast into patent hepatic veins. Liver capsule demonstrates nodular contour, indicating cirrhosis. There is perihepatic and perisplenic ascites. 3.2 cm medial right renal cortical simple cyst is present. IMPRESSION: 1. No evidence for central pulmonary embolism. Enlarged main pulmonary artery would be consistent with pulmonary arterial hypertension. 2. Significant reflux of intravenous contrast into patent hepatic veins would be consistent with congestive right heart failure. Disproportionately enlarged right and left atria would suggest tricuspid and mitral valve stenoses. 3. Findings suggestive of bilateral posterior upper lobe bronchopneumonia, on a background of emphysema. 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 4. Cirrhotic liver, along with small perihepatic and perisplenic ascites. 5. Multiple nonacute mid and lower thoracic spine compression fractures as described above, as well as acute moderate T12 anterior wedge compression fracture. 6. Small retrocardiac hiatal hernia. Dictated by: Deng Steinberg M.D. 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 I have advised him to make sure to follow up with his primary tools developer Neville in the next 1-2 weeks. VTE Prophylaxis: Sub-Q Heparin (Unfractionated), Other (initially held due to bleeding scalp wound, started subcutaneous heparin on 03/04/16) VTE Mechanical Devices: Intermittant Pneumatic CD Resuscitation Status: DNR/DNI:Do Not Resuscitate/Intubate Limited Interventions: BiPAP, Medications and IV Fluid Fortino Carmen DO Mar 11, 2016 12:00
[2016-03-11 12:11] VITALS: BP 144/59; PULSE 69; RESP 16; O2SAT 94
--- NOTE | 2016-03-11 13:15 | NUR ---
Social Work-discharge: Data:EMR Reviewed. Pt is on day 9 of hospitalization for GLF per H&P. Pt is medically stable for discharge today. [facility] specialist confirmed with [facility] that they are able to accept pt today. PT continue to recommend SNF, insurance authorization has been obtained. UR specialist arranged w/c van for 1400 with yellow cab. VILMA called daughter Faiza back who will call [employer] with payment. Faiza aware of dischrage time at 1400. VILMA updated pt and nict Merlos at bedside of discharge. RN,UC,pt/family, and [facility] all updated and agreeable to plan. Assessment:Pt to benefit from SNF. Plan:Pt to discharge to [facility] today via private pay cabulance at 1400. Insurance authorization has been obtained. RN,UC,pt/family, and [facility] all updated and agreeable to plan. SANCHEZ Casillas
[2016-03-11] MEDS: HYDROcodone-APAP 5-325 mg Tablet PO PRN (13:25)
[2016-03-11] MEDS ORDERED: HYDROcodone-APAP 5-325 mg Tablet PO ONE (13:50)
--- NOTE | 2016-03-11 14:32 | NUR ---
discharge pt is discharged to [facility] via [facility] transport. pt's belongings are brought to the facility by pt's daughter in private car. pt was given two 5-[address] [place] before he left to keep him comfortable for the ride, ordered by Dr Lewis
--- NOTE | 2016-03-11 19:25 | PCM.DC.MED ---
Discharge Summary Date of Service Mar 11, 2016 Dates of Hospitalization Date of Hospital Admission Mar 02, 2016 at 12:36 Date of Discharge: Mar 11, 2016 Providers: Admitting Physician: Ranjit Calderon MD Primary Care Physician: Gabriel Chandra DO Attending Physician: Ranjit Calderon MD Diagnosis at Time of Discharge Diagnosis at Time of Discharge Acute kidney injury on CKD stage IV due to contrast nephropathy, improved and stable Acute exacerbation COPD, present on admission. Improved Health care acquired pneumonia, treated Acute exacerbation of CHF, evidence of right sided heart failure on echocardiogram Right lower extremity cyanosis, new onset, improved Acute respiratory failure, present on admission, resolved Head laceration secondary to GLF, acute, present on admission. Healing Ground level fall, acute Chronic left foot ulceration with myonecrosis, present on admission. Bladder cancer, chronic. Presumed stable Elevated troponin secondary to CKD stable Hypothyroidism, chronic. Presumed stable Consultations Nephrology consulted Procedures XRay, CTs & MRIs CT angio chest 03/03/16: FINDINGS: Image quality: Excellent. Pulmonary arteries: Pulmonary arteries demonstrate no intraluminal filling defects to suggest central pulmonary embolism. The main pulmonary artery is enlarged up to 3.4 cm diameter. Lungs and pleura: Patchy bilateral posterior upper lobe opacities are present, superimposed on a background of apical predominant emphysema. Small bilateral pleural effusions are present, as well as bilateral pleural calcifications. Central and peripheral airways are patent. Mediastinum: There is mild cardiomegaly, with enlargement of both atria. No pericardial effusion. No mediastinal or hilar adenopathy. Thoracic aorta is normal in caliber and enhancement. Esophagus is normal in caliber, with a small hiatal hernia. Bones and chest wall: No suspicious bony lesions. Minimal T4, minimal T5, moderate T6, mild T8, moderate T9, mild T11, and moderate T12 vertebral body compression fractures are present. Sagittal reformatted images demonstrate cortical discontinuity to the anterior T12 vertebral body. Thyroid gland is normal in size but incompletely visualized. No axillary or supraclavicular adenopathy. Abdomen: There is reflux of contrast into patent hepatic veins. Liver capsule demonstrates nodular contour, indicating cirrhosis. There is perihepatic and perisplenic ascites. 3.2 cm medial right renal cortical simple cyst is present. IMPRESSION: 1. No evidence for central pulmonary embolism. Enlarged main pulmonary artery would be consistent with pulmonary arterial hypertension. 2. Significant reflux of intravenous contrast into patent hepatic veins would be consistent with congestive right heart failure. Disproportionately enlarged right and left atria would suggest tricuspid and mitral valve stenoses. 3. Findings suggestive of bilateral posterior upper lobe bronchopneumonia, on a background of emphysema. 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 4. Cirrhotic liver, along with small perihepatic and perisplenic ascites. 5. Multiple nonacute mid and lower thoracic spine compression fractures as described above, as well as acute moderate T12 anterior wedge compression fracture. 6. Small retrocardiac hiatal hernia. Dictated by: Deng Steinberg M.D. on 03/03/2016 at 20:56 Brief History From the H&P of Susan Loving D.O. Mr. Guillermo Ramey is a pleasant 75 year old gentleman with reported history of COPD, combined systolic and diastolic congestive heart failure, atrial fibrillation, HTN, CKDIV, and recent infection resulting in pneumonia, that presented to [facility] via EMS from [facility] after he experienced a syncopal event that resulted in a head laceration. He was admitted for evaluation and treatment of GLF, in addition to acute respiratory failure likely secondary to suspected acute exacerbation of COPD, acute exacerbation CHF , and possible ongoing PNA. Mr. Ramey is a current resident of [facility], and states that he cannot recall any inciting factors for his fall, and does not recall the events leading to it. He recalls reaching out, and waking up what he believed to be just a few moments later. He fell backward, striking the posterior aspect of his head onto the floor. Daughter is present at bedside. He states that he was recently admitted at [facility] for infection, and that is how he ended up at [facility], for rehabilitation. He believes it was from his foot wound, as this is the first he has heard of pneumonia. He was last seen 02/[address] Chandra at [facility]. He states other than the fall, he has been feeling well. Admits to poor outpatient compliance with follow up. Admits to chills, shortness of breath, increased cough with intermittent production Denies nausea, vomiting, fevers, severe PAN, acute vision changes In the ED, T36.5, P79, BP 146/64, 94% NC2L; WBC 6.7, Hb 10.1, Hct 33.0; Troponin 0.142, Cr 1.81; Given Lasix 60mg IV x1, vancomycin, zosyn, levaquin. 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 Patient was transferred to [facility] in stable condition. Hospital Course: Patient was initially treated in the [facility] ED for a head laceration sustained after ground level fall with CT brain which showed no acute intracranial abnormality followed by tawana to close the laceration. The patient was then found to have HCAP and started on antibiotic therapy with 3 days of IV Zosyn and Vancomycin transitioned to oral doxycycline BID. For the patients concomitant COPD he was started on breathing treatments consisting of Duonebs, Accunebs, Budesonide as well as oral prednisone. Next the patient suffered Acute kidney injury on CKD stage IV, present on admission and worsened after receiving contrast for CT angio, where nephrology was consulted but did not recommend dialysis. The patient appears to have stabilized and social work has found placement at [facility] in [place]. Palliative care was consulted to discuss goals of care given the significant comorbidities this patient faces as well as recurrent hospitalizations. Hospital Course The following were addressed during this hospitalization: 1. Acute kidney injury on CKD stage IV, improved and stable - Contrast nephropathy worsened his renal function - On admit: Cr 1.81, increased up to Cr 2.33 with eGFR of 26 and now 2.0 at discharge - Diuretics held on 03/05/15, Bumex started by nephrology on 03/06/15 with stabilization of his creatinine and pedal edema - He has a left sided fistula already placed in preparation for dialysis, if needed which has never been utilized. He has verbally expressed to the palliative team that he would like to do dialysis if needed. - Nephrology has assisted with his care, he will follow up as an outpatient with his bottom cager in [place] post discharge. - Will need a BMP 1 week after discharge to evaluate his renal function - Will continue to monitor his creatinine and fluid status daily 2. Acute exacerbation COPD, present on admission. Improving - Evidence of emphysema on CT chest and known hx of asbestos exposure - Continued Duonebs QIDWA and Accunebs q2h prn - Budesonide BID given - Prednisone 20mg starting the day prior to discharge, titrated down from 40mg daily. Recall that he takes prednisone chronically 3. Health care acquired pneumonia, treatment completed - Recent hospitalization for COPD exacerbation, CHF and pneumonia, was treated with Azithromycin and Ceftriaxone on 02/07/16 - Resp PCR negative and blood cultures without bacterial growth - Suspect his dyspnea is due, at least in part, to the pneumonia - Antibiotic therapy with oral doxycycline BID for 7 days.. Received 3 days of IV Zosyn and Vancomycin. 4. Acute exacerbation of CHF, evidence of right sided heart failure on echocardiogram - Cor pulmonale component - Diuretic therapy guided by nephrology - Daily fluid status evaluation 5. Right lower extremity cyanosis, new onset, improved - Change on physical exam from 03/07/16 to 03/08/16 with new cyanosis of the 5th and 2nd toes on the right foot - Podiatry recommended an interventional radiology or cardiology consultation for revascularization, however, the perfusion in the patient's foot improved with resolution of cyanosis of the 5th and 2nd toes. - Will continue to monitor 6. Acute respiratory failure, present on admission, resolved - Not requiring supplemental oxygen to maintain 88-92% O2 saturation - Suspect acute on chronic - Due to a combination of pneumonia, COPD and CHF - Will have a home oxygen evaluation on the date of discharge 7. Head laceration secondary to GLF, acute, present on admission. Healing - Wound is well appearing - CT brain without acute intracranial abnormality - Stapled in Emergency department, will remove tawana tomorrow - Wound care to follow 8. Ground level fall, acute, unclear if this is a recurrent issue for him or if this was an unwitnessed syncopal episode - Likely secondary to weakness in the setting of #2-4 above - PT to continue to work with the patient who will discharge to SNF with physical therapy 9. Chronic left foot ulceration with myonecrosis, present on admission. - Wound care consulting - Plan to have outpatient wound care in [place] as he will be living up there after discharge 10. Bladder cancer, chronic. Presumed stable - Reportedly, he received BCG instillations and transurethral resection of of bladder tumor for past treatment - Tamsulosin started 11. Elevated troponin of undetermined chronicity, stable - On admit: 0.142, increased to 0.163 then decreased to 0.13 - Secondary to CKD 12. Hypothyroidism, chronic. Presumed stable - Continued levothyroxine at reported dose Exam Vital Signs (Last) Date Time Temp Pulse Resp B/P Pulse Ox O2 Delivery O2 Flow Rate FiO2 03/11/16 12:11 36.5 69 16 144/59 94 Room Air 2.00 Exam General: Chronically ill appearing male resting comfortably in bed with the head of the bed elevated to 45degrees, kyphotic. HEENT: Posterior scalp laceration with tawana in place, no erythema or drainage , there is dried blood along the wound edges which are well approximated. PERRLA , sclera anicteric. Cardiac: RRR. Holosystolic murmur best heard at the left upper sternal border is present Respiratory: Moderate inspiratory effort, no wheezes, rales, or rhonchi present. No gasping or tripoding. No accessory muscle use Abdomen: Soft, nontender. Moderate pitting edema present on the abdominal wall Extremities: Anasarca The right 4th distal toe is wrapped in a clean and dry dressing. Cool, though pink feet bilaterally. Capillary refill on the right foot 5 seconds, left foot is 3 seconds. There is fine scaling present on both lower legs consistent with chronic stasis. Left dorsal lateral foot ulceration under wrap dressing which is clean, dry, and intact. : Guajardo catheter in place draining yellow, translucent urine Test 03/02/16 09:51 03/02/16 10:11 03/02/16 18:15 03/03/16 06:00 Total Creatine Kinase 57U/L (21-232) Creatine Kinase MB 5.3ng/mL (0.0-10.4) Creatine Kinase MB % % (0.0-5.0) Pro-B-Type Natriuretic Peptide 7466pg/mL (0-486) Hold Arora Top Tube Received (Received) Urine Legionella pneumophilia Ag Negative (Negative) Hemoglobin A1c 6.8% (4.8-5.6) Thyroid Stimulating Hormone (TSH) 2.320uIU/mL (0.450-4.500) Free Thyroxine 1.14ng/dL (0.82-1.77) Random Vancomycin Level 10.3ug/mL Rx Test 03/03/16 18:00 03/04/16 09:30 03/05/16 01:32 03/05/16 05:50 Troponin T 0.137ug/L (0.0-0.011) Prothrombin Time 12.3sec (8.1-12.5) Prothromb Time International Ratio 1.15ratio Urine Color Yellow (YELLOW) Urine Appearance Clear (CLEAR,HAZY) Urine pH 6.0 (5.0-8.0) Urine Specific [place] 1.010 (1.003-1.035) Urine Protein Negativemg/dL (NEG,TRACE) Urine Glucose (UA) Negativemg/dL (NEGATIVE) Urine Ketones Negativemg/dL (NEGATIVE) Urine Occult Blood Small (NEGATIVE) Urine Nitrite Negative (NEGATIVE) Urine Bilirubin Negative (NEGATIVE) Urine Urobilinogen Normalmg/dL (NORMAL) Urine Leukocyte Esterase Small (NEGATIVE) Urine RBC 3-10/hpf (0-2) Urine WBC 11-50/hpf (0-5) Urine Epithelial Cells Few/hpf (NONE-MOD) Urine Crystals None seen (NONE SEEN) Urine Bacteria Few/hpf (NONE-FEW) Urine Hyaline Casts None/lpf (NONE) Urine Granular Casts None seen (NONE SEEN) Urine Waxy Casts None seen (NONE SEEN) Urine Red Blood Cell Casts None seen (NONE SEEN) Urine White Blood Cell Casts None seen (NONE SEEN) Urine Mucus None seen (None Seen) Urine Trichomonas None seen (NONE SEEN) Urine Yeast None (NONE SEEN) Urinalysis Comment None Urine Culture Reflexed Indicated Procalcitonin 0.13ng/mL (See Comment) Test 03/05/16 10:32 03/07/16 06:00 03/08/16 06:42 03/09/16 05:50 Vancomycin Level Trough 18.3mcg/mL Phosphorus Level 5.6mg/dL (2.5-4.9) White Blood Count 7.4th/mm3 (3.8-10.1) Red Blood Count 3.21mil/mm3 (4.40-5.80) Hemoglobin 9.6g/dL (13.8-17.2) Hematocrit 31.5% (41.0-50.0) Mean Corpuscular Volume 98.1fL (81-100) Mean Corpuscular Hemoglobin 29.9pg (27.0-35.0) Mean Corpuscular Hemoglobin Concent 30.5% (32.0-37.0) Red Cell Distribution Width 20.5% (12.3-15.4) Platelet Count 131bil/L (150-400) Neutrophils (%) (Auto) 74.3% (40-74) Lymphocytes (%) (Auto) 10.7% (14-46) Monocytes (%) (Auto) 13.9% (4-12) Eosinophils (%) (Auto) 0.8% (0-5) Basophils (%) (Auto) 0% (0-3) Total Bilirubin 0.7mg/dL (0.0-1.2) Aspartate Amino Transf (AST/SGOT) 18U/L (0-50) Alanine Aminotransferase (ALT/SGPT) 16U/L (0-44) Alkaline Phosphatase 98U/L (25-160) Total Protein 6.4g/dL (6.4-8.4) Albumin 2.8g/dL (3.4-5.0) Magnesium Level 2.4mg/dL (1.6-2.6) Test 03/11/16 05:40 Sodium Level 139mEq/L (134-144) Potassium Level 3.8mEq/L (3.5-5.2) Chloride Level 96mEq/L (97-108) Carbon Dioxide Level 32mmol/L (18-29) Blood Urea Nitrogen 74mg/dL (8-27) Creatinine 2.01mg/dL (0.76-1.27) Estimat Glomerular Filtration Rate 35mL/min (>59) Glucose Level 197mg/dL (60-99) Calcium Level 8.3mg/dL (8.5-10.1) Discharge Medications Discharge Medications Aspirin (Aspirin) 325 Mg Tablet 325 MG PO DAILY (Reported) Atorvastatin (Lipitor) 20 Mg Tablet 20 MG PO HS (Reported) Calcitonin,Gallion,Synthetic (Calcitonin-Gallion) 3.7 Ml [place].pump 1 SPRAY NS DAILY (Reported) Each nares alternating sides Carvedilol (Carvedilol) 6.25 Mg Tablet 6.25 MG PO BID (Reported) Clopidogrel Bisulfate (Plavix) 75 Mg Tablet 75 MG PO DAILY (Reported) Ferrous Sulfate (Iron) 325 Mg Capsule.er 325 MG PO DAILY (Reported) Finasteride (Finasteride) 5 Mg Tablet 5 MG PO HS (Reported) Gabapentin (Gabapentin) 300 Mg Capsule 600 MG PO HS (Reported) Isosorbide MN ER (Isosorbide MN ER) 30 Mg Tab.er.24h 30 MG PO BID (Reported) L.acidoph & Paracasei,B.lactis (Probiotic) 10 Billion Cell Capsule 1 CAPSULE PO DAILY (Reported) Levothyroxine (Levothyroxine) 125 Mcg Tablet 125 MCG PO DAILY (Reported) Multivitamin (Multi Vitamin Daily) 1 Each Tablet 1 TABLET PO DAILY (Reported) Nicotine 21 mg/24 hr Patch (Nicotine 21 mg/24 hr Patch) 1 Each Patch.dysq 1 PATCH TRANSDERM DAILY (Reported) Potassium Chloride ER (Potassium Chloride ER) 20 Meq Tablet.er 40 MEQ PO DAILY ( Reported) TAKE WITH FOOD Prednisolone (Prednisolone) 15 Mg/5 Ml Solution 40 MG PO DAILY (Reported) Prednisone (Deltasone) 20 Mg Tablet 20 MG PO DAILY Prescribed by: ADRIANE MATHIAS DO Salmeterol Xinafoate (Serevent Diskus) 50 Mcg/Puff Inhaler 1 PUFF IH BID ( Reported) Tamsulosin (Flomax) 0.4 Mg Capsule 0.8 MG PO HS (Reported) Tiotropium [place] (Spiriva) 18 Mcg Cap.w.dev 18 MCG IH DAILY (Reported) Rinse mouth after use Torsemide (Torsemide) 20 Mg Tablet 60 MG PO Every other day (Reported) Alternating with Torsemide 80 mg Torsemide (Torsemide) 20 Mg Tablet 80 MG PO Every other day (Reported) Alternating with Torsemide 60 mg As needed Acetaminophen (Acetaminophen) 325 Mg Tablet 650 MG PO Q4H PRN PRN Pain and fever (Reported) Albuterol HFA (Proair HFA) 8.5 Gm Hfa.aer.ad 2 PUFFS INHALATION Q4H PRN PRN For Shortness of Breath (Reported) Guaifenesin (Guaifenesin ER) 600 Mg Tab.er.12h 600 MG PO Q6H PRN PRN For Congestion (Reported) Hydrocodone-Acetaminophen 5-325 mg (Hydrocodone-Acetaminophen 5-325 mg) 1 Each Tablet 1 TABLET PO Q4H PRN PRN For Pain (Reported) Polyethylene Glycol 3350 (Miralax) 17 Gm Powd.pack 17 GM PO DAILY PRN PRN For Constipation (Reported) Additional med instructions Take prednisone 1 tablet by mouth daily for the next 5 days. Followup Plan Disposition: snf facility Follow-up plan You need to have a follow up with nephrology. If you prefer, you may see your bottom cager in [place] in 1-2 weeks, alternatively, you may see Dr Carmen at [facility]. Discharge Diet: Renal Diet Discharge Activity: Other (snf) Follow-up Provider: Fortino Carmen DO Follow-up with PCP in: Other (1-2 weeks.) Time spent 45 minutes Attending Statement I have seen and evaluated patient at bedside in addition to directly supervising care provided by resident physician. I agree with above documentation. Adriane Mathias DO Mar 11, 2016 19:11 Troy Lewis DO Mar 12, 2016 08:10
--- NOTE | 2016-03-12 14:56 | NUR ---
Palliative care note D/A: JOE faxed to [facility], [place], JOE completed on 03/07/16 and is noted to be signed by pt. Pt indicated that he wishes DNR/DNI with limited interventions. He would wish use of antibiotics if his life could be extended and would accept a trial period of medically assisted nutrition by tube for reversible conditions and not end of life. His DPOA is noted to be his dtr Faiza Dobson who can be contacted at her cell [phone] and home [phone]. P: No further need for PC intervention at this time. Areli DRAKE, CCM
== END 2016-03-11 14:28 | DRG 682 ==
LOC: EDBD 07:56 → SED 07:56 → MPC 12:36
PROVIDERS: ADMIT Family Medicine; ATTEND Family Medicine
PROC: 0HQ0XZZ Repair Scalp Skin, External Approach (ICD-10-PCS; principal; 2016-03-02)
DX: N17.8 Other acute kidney failure (principal); J18.9 Pneumonia, unspecified organism; I50.43 Acute on chronic combined systolic (congestive) and diastolic (congestive) heart failure; J96.00 Acute respiratory failure, unspecified whether with hypoxia or hypercapnia; A48.0 Gas gangrene; J44.1 Chronic obstructive pulmonary disease with (acute) exacerbation; J91.8 Pleural effusion in other conditions classified elsewhere; I13.0 Hypertensive heart and chronic kidney disease with heart failure and stage 1 through stage 4 chronic kidney disease, or unspecified chronic kidney disease; N18.4 Chronic kidney disease, stage 4 (severe); E03.9 Hypothyroidism, unspecified; E11.621 Type 2 diabetes mellitus with foot ulcer; L97.529 Non-pressure chronic ulcer of other part of left foot with unspecified severity; W19.XXXA Unspecified fall, initial encounter; S01.01XA Laceration without foreign body of scalp, initial encounter; F17.210 Nicotine dependence, cigarettes, uncomplicated; Y95 Nosocomial condition; Z51.5 Encounter for palliative care; R23.0 Cyanosis